=== PATIENT | female | born 1950 ===

== ENCOUNTER 2023-01-14 00:22 | Inpatient (IN) | payer OTHER, SELFPAY ==
[2023-01-14] VITALS (26 sets, daily range): BP systolic 149–200; BP diastolic 58–81; PULSE 90–125; RESP 20–32; TEMP 36.4–38.6; O2SAT 90–96; BMI 39.3; BMI 37.5
--- NOTE | 2023-01-14 00:33 | DI.RAD.S_ITS ---
PROCEDURE: XR FOOT RT 2V INDICATIONS: Great toe deep infection. TECHNIQUE: A total of 2 views of the foot were acquired. COMPARISON: None. FINDINGS: Bones: No fractures or dislocations. No suspicious bony lesions. Soft tissues: No tibiotalar joint effusion. Achilles tendon appears normal. A soft tissue ulceration can be seen medial to the great toe interphalangeal joint inferiorly. IMPRESSION: Soft tissue infection without clear plain film evidence of osteomyelitis at the great toe. Dictated by: Paulo Canela M.D. on 01/14/2023 at 1:27 Approved by: Paulo Canela M.D. on 01/14/2023 at 1:29
[2023-01-14 01:06] LABS: INR 4.5 (0.9-1.3); Prothrombin Time 52.5 SECONDS (10.1-12.7)
[2023-01-14 01:08] LABS: Hematocrit 33.9 % (36-46); Hemoglobin 11.5 g/dL (12.0-16.0); Mean Corpuscular HGB Conc 34.1 % (30-36); Mean Corpuscular Hemoglobin 29.9 PG (26-34); Mean Corpuscular Volume 87.7 fL (80-100); PTT Partial Thromboplastin Tim 37 SECONDS (26-36); Platelet Count 421 X10^3/uL (150-400); Red Blood Cell Count 3.86 X10^6/uL (4.0-5.2); Red Cell Distribution Width 14.2 % (11.6-14.8); White Blood Cell Count 23.1 X10^3/uL (4.5-11.0)
[2023-01-14 01:11] LABS: Add Manual Diff / Slide Review YES
[2023-01-14 01:20] LABS: Lactate (Lactic Acid) 0.8 mmol/L (0.7-2.1)
[2023-01-14 01:21] LABS: Alanine Aminotransferase 43 IU/L (<35); Albumin 3.6 g/dL (3.5-5.0); Albumin Globulin Ratio 0.9 (1.0-2.8); Alkaline Phosphatase 133 U/L (38-126); Aspartate Aminotransferase 49 IU/L (14-36); Blood Urea Nitrogen 17 mg/dL (7-17); Calcium 8.8 mg/dL (8.4-10.2); Carbon Dioxide 20 mmol/L (22-32); Chloride 102 mmol/L (98-107); Estimated Glomerular Filt Rate > 60 mL/min (>60); Globulin 3.9 g/dL (1.7-4.1); Glucose 139 mg/dL (80-110); HEMOLYSIS < 15 (0-50); Lipase 25 U/L (23-300); Potassium 3.6 mmol/L (3.4-5.1); Sodium 133 mmol/L (137-145); Total Protein 7.5 g/dL (6.3-8.2)
[2023-01-14 01:25] LABS: Neutrophils Absolute Manual 20559 /uL (3000-5900); Total Cells Counted 100
[2023-01-14 01:26] LABS: RBC Morphology Normal Morphology
[2023-01-14 01:32] LABS: Erythrocyte Sedimentation Rate 126 MM/HR (0-20)
--- NOTE | 2023-01-14 01:34 | ED.SKABFB ---
HPI - Skin/Abscess/Foreign Bdy General Chief complaint: Skin/Abscess/Foreign Body Stated complaint: Infected toe Time Seen by Provider: 01/14/23 00:24 Source: patient and EMS Mode of arrival: EMS Limitations: no limitations History of Present Illness HPI narrative: 72-year-old female smoker with peripheral neuropathy, anticoagulated due to prior pulmonary emboli, hypertension presents with a chief complaint of an infection on her right great toe that has been present for about 1 week. She has increased swelling in drainage and now states that the redness has stretch from the top of her foot up to her knee. She denies chest pain or shortness of breath. She is not dizzy nor weak or lightheaded. She denies any obvious injury. Related Data Home Medications Medication Instructions Recorded Confirmed AMITRIPTYLINE HYDROCHLORIDE 75 mg PO HS ##0 06/16/10 (AMITRIPTYLINE HCL) BACLOFEN (Lioresal) 40 mg PO Q DAY ##0 06/16/10 LISINOPRIL (Zestril / Prinivil) 40 mg PO Q DAY ##0 06/16/10 OMEPRAZOLE 20 mg PO Q DAY ##0 06/16/10 [LOVENOX] 150 mg PO BID ##0 12/26/10 [PHENYTOIN EX] ##0 12/26/10 metoprolol tartrate 50 mg tablet ##0 12/26/10 warfarin 5 mg tablet (Coumadin) 5.5 mg PO QDAY ##0 12/26/10 Allergies Allergy/AdvReac Type Severity Reaction Status Date / Time BLEACH Allergy Severe SEIZURES Uncoded 09/19/17 12:09 From AMMONIA Allergy Severe SEIZURES Uncoded 09/19/17 12:09 Codeine Allergy Unknown Uncoded 09/19/17 12:09 SULFA (sulfonamide) Allergy Unknown Uncoded 09/19/17 12:09 Morphine AdvReac Unknown Uncoded 09/19/17 12:09 Review of Systems Review of Systems Narrative: GENERAL: Denies chills, fatigue, malaise, fever, sweats. HEENT: Denies sinus pain, ear pain, sore throat, difficulty swallowing, dizziness. RESPIRATORY: Denies dyspnea, cough, wheezing, hemoptysis, sputum. CARDIOVASCULAR: Denies chest pain, palpitations, orthopnea, edema, GASTROINTESTINAL: Denies nausea, vomiting, abdominal pain, diarrhea, constipation, melena. : Denies dysuria, frequency, incontinence, hematuria, urinary retention. MUSCULOSKELETAL: See HPI SKIN: See HPI NEUROLOGIC: Denies weakness, headache, numbness, change in speech, confusion, seizures, incoordination. PSYCHIATRIC: No concerning psychosocial issues. 12 point review of systems is negative except for those stated above Patient History Social History Smoking Status: Current every day smoker Smoking Status: Current every day smoker tobacco type: cigarettes Substance Use Type: does not use Exam Narrative Exam Narrative: GENERAL: [72] year old patient appears stated age. Well-developed patient, in mild distress. HEAD: Atraumatic. Normocephalic. EYES: Pupils equal round and reactive. Extraocular motions intact. No scleral icterus. No injection or drainage. ENT: Nose without bleeding, purulent drainage. Throat without erythema, tonsillar hypertrophy or exudate. Airway patent. NECK: Trachea midline. Non tender CARDIOVASCULAR: Regular rate and rhythm without murmurs, gallops, or rubs. RESPIRATORY: Clear to auscultation. Breath sounds equal bilaterally. No wheezes, rales, or rhonchi. GASTROINTESTINAL: Abdomen soft, non-tender, nondistended. EXTREMITIES: Right great toe with significant swelling, fluctuance noted and discoloration, purulent, foul-smelling drainage from a break in the skin both on the dorsal surface and plantar surface, she is insensate to deep probe, culture sent to lab. Circumferential erythema around ankle calf and up to knee with what appears to be early lymphangitis BACK: Nontender without deformity or crepitance. No flank tenderness. NEURO: AOx3. SKIN: Otherwise, No rash or erythema of visible areas Initial Vital Signs Initial Vital Signs: Vital Signs Temperature 97.6 F 01/14/23 00:32 Pulse Rate 99 H 01/14/23 00:32 Respiratory Rate 20 01/14/23 00:32 Blood Pressure 186/76 H 01/14/23 00:32 Pulse Oximetry 94 01/14/23 00:32 Oxygen Delivery Method Nasal Cannula 01/14/23 00:32 Oxygen Flow Rate 3 01/14/23 00:32 Course Orders Ordered: ED Orders 01/14/23 00:33 XR foot RT 2V Stat 01/14/23 00:39 RT Consult Eval and Treat NOW 01/14/23 00:50 C-Reactive Protein Quant Stat Complete Blood Count AUTO DIFF Stat Comprehensive Metabolic Panel Stat Erythrocyte Sedimentation Rate Stat Lactate (Lactic Acid) Stat Lipase Stat PTT Partial Thromboplastin Man Stat Procalcitonin Stat Prothrombin Time INR Stat 01/14/23 01:04 EKG-12 Lead Stat 01/14/23 01:07 Blood Culture Stat 01/14/23 02:40 Urine Culture Stat Urine Microscopic Stat Ondansetron HCl (Ondansetron 4 Mg/2 Ml Inj) 4 mg IV NOW PRN PRN Reason: Nausea And Vomiting Ondansetron HCl (Ondansetron 4 Mg Odt) 4 mg SL NOW PRN PRN Reason: Nausea And Vomiting Discontinued Medications Sodium Chloride (Normal Saline 0.9%) 1,000 mls @ 1,000 mls/hr IV BOLUS ONE Stop: 01/14/23 01:38 Last Infusion: 01/14/23 02:53 Dose: 0 mls/hr Documented By: Admin: 01/14/23 01:47 Dose: 1,000 mls/hr Documented By: GILBERT Meropenem 500 mg/ Sodium (Chloride) 100 mls @ 200 mls/hr IV NOW ONE Stop: 01/14/23 01:18 Last Infusion: 01/14/23 03:39 Dose: 0 mls/hr Documented By: Admin: 01/14/23 02:51 Dose: 200 mls/hr Documented By: DALTON Metronidazole (Flagyl) 500 mg in 100 mls @ 100 mls/hr IV NOW ONE Stop: 01/14/23 02:16 Last Infusion: 01/14/23 02:53 Dose: 0 mls/hr Documented By: Admin: 01/14/23 01:46 Dose: 100 mls/hr Documented By: GILBERT Consultations Consultation #1: Discussed with on-call orthopedist, Dr. Garcia, he is happy to be involved in consultation, requests admission to hospitalist. Vital Signs Vital signs: Vital Signs - 8 hr 01/14/23 00:32 Temperature 97.6 F Pulse Rate 99 H Respiratory Rate 20 Blood Pressure 186/76 H Pulse Oximetry 94 Oxygen Delivery Method Nasal Cannula Oxygen Flow Rate 3 MDM - Skin/Abscess/Foreign Bdy Lab Data 01/14/23 00:50 01/14/23 00:50 Labs: Lab Results 01/14/23 01/14/23 01/14/23 Range/Units 00:50 00:50 00:50 WBC 23.1 H (4.5-11.0) X10^3/uL RBC 3.86 L (4.0-5.2) X10^6/uL Hgb 11.5 L (12.0-16.0) g/dL Hct 33.9 L (36-46) % MCV 87.7 (80-100) fL MCH 29.9 (26-34) PG MCHC 34.1 (30-36) % RDW 14.2 (11.6-14.8) % Plt Count 421 H (150-400) X10^3/uL Neut % (Auto) Not Reportable Lymph % (Auto) Not Reportable [place] % (Auto) Not Reportable Eos % (Auto) Not Reportable Baso % (Auto) Not Reportable Lymph # (Auto) Not Reportable [place] # (Auto) Not Reportable Baso # (Auto) Not Reportable Total Counted 100 Seg Neutrophils % 86.0 H (38-70) % Band Neutrophils % 3.0 (3-7) % Lymphocytes % (Manual) 6.0 L (25-45) % Monocytes % (Manual) 5.0 (2-11) % Neutrophils # (Manual) 56489 H (2482-0540) /uL RBC Morphology Normal morphology ESR (0-20) MM/HR PT 52.5 H (10.1-12.7) SECONDS INR 4.5 H (0.9-1.3) APTT 37 H (26-36) SECONDS Sodium 133 L (137-145) mmol/L Potassium 3.6 (3.4-5.1) mmol/L Chloride 102 (98-107) mmol/L Carbon Dioxide 20 L (22-32) mmol/L BUN 17 (7-17) mg/dL Creatinine 0.81 (0.52-1.04) mg/dL Estimated GFR > 60 (>60) mL/min BUN/Creatinine Ratio 21.0 (6-22) Glucose 139 H (80-110) mg/dL Lactate (0.7-2.1) mmol/L Calcium 8.8 (8.4-10.2) mg/dL Total Bilirubin 1.0 (0.2-1.3) mg/dL AST 49 H (14-36) IU/L ALT 43 H (<35) IU/L Alkaline Phosphatase 133 H (38-126) U/L C-Reactive Protein (<1.0) mg/dL Total Protein 7.5 (6.3-8.2) g/dL Albumin 3.6 (3.5-5.0) g/dL Globulin 3.9 (1.7-4.1) g/dL Albumin/Globulin Ratio 0.9 L (1.0-2.8) Lipase 25 (23-300) U/L Procalcitonin 0.97 H (<0.5) ng/mL Urine RBC (0-5/HPF) Urine WBC (0-5/HPF) Ur Squamous Epith Cells (0-5/HPF) Urine Bacteria (None) Ur Culture Indicated? 01/14/23 01/14/23 01/14/23 Range/Units 00:50 00:50 00:50 WBC (4.5-11.0) X10^3/uL RBC (4.0-5.2) X10^6/uL Hgb (12.0-16.0) g/dL Hct (36-46) % MCV (80-100) fL MCH (26-34) PG MCHC (30-36) % RDW (11.6-14.8) % Plt Count (150-400) X10^3/uL Neut % (Auto) Lymph % (Auto) [place] % (Auto) Eos % (Auto) Baso % (Auto) Lymph # (Auto) [place] # (Auto) Baso # (Auto) Total Counted Seg Neutrophils % (38-70) % Band Neutrophils % (3-7) % Lymphocytes % (Manual) (25-45) % Monocytes % (Manual) (2-11) % Neutrophils # (Manual) (8740-7057) /uL RBC Morphology ESR 126 H (0-20) MM/HR PT (10.1-12.7) SECONDS INR (0.9-1.3) APTT (26-36) SECONDS Sodium (137-145) mmol/L Potassium (3.4-5.1) mmol/L Chloride (98-107) mmol/L Carbon Dioxide (22-32) mmol/L BUN (7-17) mg/dL Creatinine (0.52-1.04) mg/dL Estimated GFR (>60) mL/min BUN/Creatinine Ratio (6-22) Glucose (80-110) mg/dL Lactate 0.8 (0.7-2.1) mmol/L Calcium (8.4-10.2) mg/dL Total Bilirubin (0.2-1.3) mg/dL AST (14-36) IU/L ALT (<35) IU/L Alkaline Phosphatase (38-126) U/L C-Reactive Protein 41.1 H (<1.0) mg/dL Total Protein (6.3-8.2) g/dL Albumin (3.5-5.0) g/dL Globulin (1.7-4.1) g/dL Albumin/Globulin Ratio (1.0-2.8) Lipase (23-300) U/L Procalcitonin (<0.5) ng/mL Urine RBC (0-5/HPF) Urine WBC (0-5/HPF) Ur Squamous Epith Cells (0-5/HPF) Urine Bacteria (None) Ur Culture Indicated? 01/14/23 Range/Units 02:40 WBC (4.5-11.0) X10^3/uL RBC (4.0-5.2) X10^6/uL Hgb (12.0-16.0) g/dL Hct (36-46) % MCV (80-100) fL MCH (26-34) PG MCHC (30-36) % RDW (11.6-14.8) % Plt Count (150-400) X10^3/uL Neut % (Auto) Lymph % (Auto) [place] % (Auto) Eos % (Auto) Baso % (Auto) Lymph # (Auto) [place] # (Auto) Baso # (Auto) Total Counted Seg Neutrophils % (38-70) % Band Neutrophils % (3-7) % Lymphocytes % (Manual) (25-45) % Monocytes % (Manual) (2-11) % Neutrophils # (Manual) (5967-1704) /uL RBC Morphology ESR (0-20) MM/HR PT (10.1-12.7) SECONDS INR (0.9-1.3) APTT (26-36) SECONDS Sodium (137-145) mmol/L Potassium (3.4-5.1) mmol/L Chloride (98-107) mmol/L Carbon Dioxide (22-32) mmol/L BUN (7-17) mg/dL Creatinine (0.52-1.04) mg/dL Estimated GFR (>60) mL/min BUN/Creatinine Ratio (6-22) Glucose (80-110) mg/dL Lactate (0.7-2.1) mmol/L Calcium (8.4-10.2) mg/dL Total Bilirubin (0.2-1.3) mg/dL AST (14-36) IU/L ALT (<35) IU/L Alkaline Phosphatase (38-126) U/L C-Reactive Protein (<1.0) mg/dL Total Protein (6.3-8.2) g/dL Albumin (3.5-5.0) g/dL Globulin (1.7-4.1) g/dL Albumin/Globulin Ratio (1.0-2.8) Lipase (23-300) U/L Procalcitonin (<0.5) ng/mL Urine RBC 5-10/hpf H (0-5/HPF) Urine WBC 10-30/hpf H (0-5/HPF) Ur Squamous Epith Cells 5-10 /hpf H (0-5/HPF) Urine Bacteria Many (>30) H (None) Ur Culture Indicated? Specimen cultured Urine Dip Bedside Urine Glucose Negative Bedside Urine Bilirubin + 1 Bedside Urine Ketone ++ 40 Urine Specific [place] 1.025 Bedside Urine Occult Blood ++ Bedside Urine pH 6 Bedside Urine Protein ++ 100 Bedside Urine Urobilinogen - Negative Bedside Urine Nitrite - Negative Bedside Urine Leukocytes +/- 15 Esterase MDM Narrative Medical decision making narrative: 72-year-old female with worsening right great toe swelling and redness over the week. There is now drainage of foul-smelling material. Patient reports very little pain but generally feels unwell. She now has redness extending up her right leg to just below the knee. Patient has no reported history of diabetes but does have neuropathy. Wound culture obtained. Elevation in white blood cells with left shift noted, inflammatory markers also increase not surprisingly. X-ray shows no obvious bony involvement. Patient requires hospitalization for IV antibiotics, could potentially require surgical debridement. Patient understands and agrees with diagnosis and plan. I have spoken with the hospitalist, Dr. Vela, who is happy to accept patient on his service Discharge Plan Departure Patient Disposition: Admitted As Inpatient Clinical Impression: Abscess of great toe, right, Cellulitis of right lower limb Admit Date/Time: 01/14/23 03:50
[2023-01-14 01:38] LABS: Procalcitonin 0.97 ng/mL (<0.5)
[2023-01-14 01:46] LABS: C-Reactive Protein Quant 41.1 mg/dL (<1.0)
[2023-01-14] MEDS: metroNIDAZOLE 500 MG/100 ML PIGGYBACK 100 MG IV ×3 (01:46→23:00)
[2023-01-14] MEDS: SODIUM CHLORIDE 0.9% 1,000 ML 1000 ML IV (01:47)
[2023-01-14 02:50] LABS: Bacteria Urine Many (>30); RBC Urine 5-10/HPF (0-5/HPF); Squamous Epithelial Cell Urine 5-10 /HPF (0-5/HPF); WBC Urine 10-30/HPF (0-5/HPF)
[2023-01-14] MEDS: MEROPENEM 500 MG in SODIUM CHLORIDE 0.9% 100 ML 200 MG IV (02:51)
[2023-01-14 02:52] LABS: Culture Indicated Urine Specimen Cultured
--- NOTE | 2023-01-14 05:51 | P.HP_ITS ---
History of Present Illness History of Present Illness Chief complaint: Infected toe Narrative: 72 y/o with a history of peripheral neuropathy, presented to ED with purulent Rt great toe wound and large area of cellulitis extending to the knee. Wound was noted a week ago. On arrival to ED started on broad abx coverage. FORMERLY [facility], [facility] Medical History Smoker Social History Smoking Status: Current every day smoker Meds Home Medications and Allergies Home Medications Medication Instructions Recorded Confirmed Type AMITRIPTYLINE HYDROCHLORIDE 75 mg PO HS ##0 06/16/10 History (AMITRIPTYLINE HCL) BACLOFEN (Lioresal) 40 mg PO Q DAY ##0 06/16/10 01/14/23 History LISINOPRIL (Zestril / Prinivil) 40 mg PO Q DAY ##0 06/16/10 01/14/23 History OMEPRAZOLE 20 mg PO Q DAY ##0 06/16/10 01/14/23 History [LOVENOX] 150 mg PO BID ##0 12/26/10 History [PHENYTOIN EX] 2 cap PO BID ##0 12/26/10 01/14/23 History metoprolol tartrate 50 mg tablet 100 mg PO BID ##0 12/26/10 01/14/23 History warfarin 5 mg tablet (Coumadin) 5.5 mg PO QDAY ##0 12/26/10 01/14/23 History clonidine HCl 0.2 mg tablet 0.2 mg PO BID 01/14/23 01/14/23 History sertraline 100 mg tablet 100 mg PO DAILY 01/14/23 01/14/23 History warfarin 1 mg tablet 1 mg PO DAILY 01/14/23 01/14/23 History Allergies Allergy/AdvReac Type Severity Reaction Status Date / Time BLEACH Allergy Severe SEIZURES Uncoded 09/19/17 12:09 From AMMONIA Allergy Severe SEIZURES Uncoded 09/19/17 12:09 Codeine Allergy Unknown Uncoded 09/19/17 12:09 SULFA (sulfonamide) Allergy Unknown Uncoded 09/19/17 12:09 Morphine AdvReac Unknown Uncoded 09/19/17 12:09 Review of Systems Constitutional Comments: w/o fever or chills Cardiovascular Comments: w/o chest pain or pressure Respiratory Comments: short of breath with activity Gastrointestinal Comments: w/o complaints Genitourinary Comments: w/o dysuria Musculoskeletal Comments: RLE pain, swelling, redness Neurologic Comments: chronic neuropathy with decreased sensory from toes and episodic neuropathic pain in legs Exam Vital Signs (past 8 hours): - 01/14/23 00:32 01/14/23 00:26 01/14/23 00:26 Temperature 97.6 F Pulse Rate 99 H 100 H Respiratory Rate 20 Blood Pressure 186/76 H 186/76 H Pulse Oximetry 94 93 Oxygen Delivery Method Nasal Cannula Oxygen Flow Rate 3 01/14/23 00:30 01/14/23 00:30 01/14/23 01:00 Temperature Pulse Rate 99 H Respiratory Rate Blood Pressure 174/74 H 170/73 H Pulse Oximetry 93 Oxygen Delivery Method Oxygen Flow Rate 01/14/23 01:00 01/14/23 01:30 01/14/23 01:30 Temperature Pulse Rate 100 H 95 H Respiratory Rate Blood Pressure 172/73 H Pulse Oximetry 90 L 92 Oxygen Delivery Method Oxygen Flow Rate 01/14/23 02:00 01/14/23 02:00 01/14/23 03:06 Temperature Pulse Rate 97 H 125 H Respiratory Rate Blood Pressure 175/74 H Pulse Oximetry 92 90 L Oxygen Delivery Method Oxygen Flow Rate 01/14/23 03:30 01/14/23 03:31 01/14/23 03:31 Temperature Pulse Rate 120 H 121 H Respiratory Rate Blood Pressure 185/81 H Pulse Oximetry 91 91 Oxygen Delivery Method Oxygen Flow Rate 01/14/23 04:00 01/14/23 05:18 Temperature 98.1 F Pulse Rate 118 H 124 H Respiratory Rate 20 32 H Blood Pressure 195/79 H 200/79 H Pulse Oximetry 93 96 Oxygen Delivery Method Nasal Cannula Oxygen Flow Rate 2 Oxygen Delivery Method Nasal Cannula Oxygen Flow Rate 2 Const Other: sitting on bed in no distress HENMT Other: normocephalic Neck Other: no JVD Cardio Other: tachycardic, VIRGIL at LSB GI Other: not distended Skin Other: Rt great toe wounds, erythematous and swollen RLE Psych Other: appropriate mood and affect Objective Labs 01/14/23 00:50 01/14/23 00:50 Labs: Laboratory Results - last 24 hr 01/14/23 01/14/23 01/14/23 00:50 00:50 00:50 WBC 23.1 H RBC 3.86 L Hgb 11.5 L Hct 33.9 L MCV 87.7 MCH 29.9 MCHC 34.1 RDW 14.2 Plt Count 421 H Neut % (Auto) Not Reportable Lymph % (Auto) Not Reportable [place] % (Auto) Not Reportable Eos % (Auto) Not Reportable Baso % (Auto) Not Reportable Lymph # (Auto) Not Reportable [place] # (Auto) Not Reportable Baso # (Auto) Not Reportable Total Counted 100 Seg Neutrophils % 86.0 H Band Neutrophils % 3.0 Lymphocytes % (Manual) 6.0 L Monocytes % (Manual) 5.0 Neutrophils # (Manual) 98154 H RBC Morphology Normal morphology ESR PT 52.5 H INR 4.5 H APTT 37 H Sodium 133 L Potassium 3.6 Chloride 102 Carbon Dioxide 20 L BUN 17 Creatinine 0.81 Estimated GFR > 60 BUN/Creatinine Ratio 21.0 Glucose 139 H Lactate Calcium 8.8 Total Bilirubin 1.0 AST 49 H ALT 43 H Alkaline Phosphatase 133 H C-Reactive Protein Total Protein 7.5 Albumin 3.6 Globulin 3.9 Albumin/Globulin Ratio 0.9 L Lipase 25 Procalcitonin 0.97 H Urine RBC Urine WBC Ur Squamous Epith Cells Urine Bacteria Ur Culture Indicated? 01/14/23 01/14/23 01/14/23 00:50 00:50 00:50 WBC RBC Hgb Hct MCV MCH MCHC RDW Plt Count Neut % (Auto) Lymph % (Auto) [place] % (Auto) Eos % (Auto) Baso % (Auto) Lymph # (Auto) [place] # (Auto) Baso # (Auto) Total Counted Seg Neutrophils % Band Neutrophils % Lymphocytes % (Manual) Monocytes % (Manual) Neutrophils # (Manual) RBC Morphology ESR 126 H PT INR APTT Sodium Potassium Chloride Carbon Dioxide BUN Creatinine Estimated GFR BUN/Creatinine Ratio Glucose Lactate 0.8 Calcium Total Bilirubin AST ALT Alkaline Phosphatase C-Reactive Protein 41.1 H Total Protein Albumin Globulin Albumin/Globulin Ratio Lipase Procalcitonin Urine RBC Urine WBC Ur Squamous Epith Cells Urine Bacteria Ur Culture Indicated? 01/14/23 02:40 WBC RBC Hgb Hct MCV MCH MCHC RDW Plt Count Neut % (Auto) Lymph % (Auto) [place] % (Auto) Eos % (Auto) Baso % (Auto) Lymph # (Auto) [place] # (Auto) Baso # (Auto) Total Counted Seg Neutrophils % Band Neutrophils % Lymphocytes % (Manual) Monocytes % (Manual) Neutrophils # (Manual) RBC Morphology ESR PT INR APTT Sodium Potassium Chloride Carbon Dioxide BUN Creatinine Estimated GFR BUN/Creatinine Ratio Glucose Lactate Calcium Total Bilirubin AST ALT Alkaline Phosphatase C-Reactive Protein Total Protein Albumin Globulin Albumin/Globulin Ratio Lipase Procalcitonin Urine RBC 5-10/hpf H Urine WBC 10-30/hpf H Ur Squamous Epith Cells 5-10 /hpf H Urine Bacteria Many (>30) H Ur Culture Indicated? Specimen cultured Assessment & Plan Assessment and plan (1) Abscess of great toe, right: Status: Acute Plan: - orthopedist to assess for debridement - INR supratherapeutic on admission, taken off warfarin - INR f/u - Meropenem, Flagyl started in ED - cultures pending (2) Cellulitis of right lower limb: Status: Acute Plan: see above (3) HTN (hypertension): Status: Acute Plan: Clonidine, metoprolol, Lisinopril - grossly uncontrolled on admission (4) Pulmonary embolism: Status: Acute Plan: INR 4.5, taken off warfarin O2 prn (5) Peripheral neuropathy: Status: Acute Plan: - chronic (6) GERD (gastroesophageal reflux disease): Status: Acute Plan: PPI (7) Depression: Status: Acute Plan: Zoloft (8) Smoker: Status: Acute Plan: nicotine replacement prn, albuterol prn Assessment & Plan narrative: - orthopedist to assess for debridement - INR supratherapeutic on admission, taken off coumadin
--- NOTE | 2023-01-14 07:13 | PM.PN.1 ---
Subjective Subjective Interval history: She is seen today to follow-up her vascular disease, left foot ulcer, right foot infection, right leg cellulitis, peripheral neuropathy and pulmonary embolus. Her INR neo to 6.0 this morning so vitamin K will be given. She is discussed with Dr. Garcia from Orthopedics. She appears to have a severe peripheral vascular condition leading to these infections so will likely need to be referred to a hospital where angiogram runoff CT scan can be done to establish what level of treatment she needs. I suspect she will need bilateral BKA? Exam Vital Signs (past 8 hours): - 01/14/23 00:32 01/14/23 00:26 01/14/23 00:26 Temperature 97.6 F Pulse Rate 99 H 100 H Respiratory Rate 20 Blood Pressure 186/76 H 186/76 H Pulse Oximetry 94 93 Oxygen Delivery Method Nasal Cannula Oxygen Flow Rate 3 01/14/23 00:30 01/14/23 00:30 01/14/23 01:00 Temperature Pulse Rate 99 H Respiratory Rate Blood Pressure 174/74 H 170/73 H Pulse Oximetry 93 Oxygen Delivery Method Oxygen Flow Rate 01/14/23 01:00 01/14/23 01:30 01/14/23 01:30 Temperature Pulse Rate 100 H 95 H Respiratory Rate Blood Pressure 172/73 H Pulse Oximetry 90 L 92 Oxygen Delivery Method Oxygen Flow Rate 01/14/23 02:00 01/14/23 02:00 01/14/23 03:06 Temperature Pulse Rate 97 H 125 H Respiratory Rate Blood Pressure 175/74 H Pulse Oximetry 92 90 L Oxygen Delivery Method Oxygen Flow Rate 01/14/23 03:30 01/14/23 03:31 01/14/23 03:31 Temperature Pulse Rate 120 H 121 H Respiratory Rate Blood Pressure 185/81 H Pulse Oximetry 91 91 Oxygen Delivery Method Oxygen Flow Rate 01/14/23 04:00 01/14/23 05:18 01/14/23 04:21 Temperature 98.1 F Pulse Rate 118 H 124 H Respiratory Rate 20 32 H Blood Pressure 195/79 H 200/79 H Pulse Oximetry 93 96 Oxygen Delivery Method Nasal Cannula Nasal Cannula Oxygen Flow Rate 2 Oxygen Delivery Method Nasal Cannula Oxygen Flow Rate 2 Narrative Exam Narrative: She is alert and oriented x3. She is weakned as would be expected from this severe infection. Heart is regular rate and rhythm without murmur Lungs are clear to auscultation bilaterally Large left 1st metatarsal ulceration present. Large swollen right large toe. 2+ pitting edema of the right lower leg. No edema of left lower leg. Cellulitic pink discoloration extending up to just above the knee still within demarcations drawn in the ED on admission. Objective Labs 01/14/23 00:50 01/14/23 00:50 Labs: Laboratory Results - last 24 hr 01/14/23 01/14/23 01/14/23 00:50 00:50 00:50 WBC 23.1 H RBC 3.86 L Hgb 11.5 L Hct 33.9 L MCV 87.7 MCH 29.9 MCHC 34.1 RDW 14.2 Plt Count 421 H Neut % (Auto) Not Reportable Lymph % (Auto) Not Reportable [place] % (Auto) Not Reportable Eos % (Auto) Not Reportable Baso % (Auto) Not Reportable Lymph # (Auto) Not Reportable [place] # (Auto) Not Reportable Baso # (Auto) Not Reportable Total Counted 100 Seg Neutrophils % 86.0 H Band Neutrophils % 3.0 Lymphocytes % (Manual) 6.0 L Monocytes % (Manual) 5.0 Neutrophils # (Manual) 43652 H RBC Morphology Normal morphology ESR PT 52.5 H INR 4.5 H APTT 37 H Sodium 133 L Potassium 3.6 Chloride 102 Carbon Dioxide 20 L BUN 17 Creatinine 0.81 Estimated GFR > 60 BUN/Creatinine Ratio 21.0 Glucose 139 H Lactate Calcium 8.8 Total Bilirubin 1.0 AST 49 H ALT 43 H Alkaline Phosphatase 133 H C-Reactive Protein Total Protein 7.5 Albumin 3.6 Globulin 3.9 Albumin/Globulin Ratio 0.9 L Lipase 25 Procalcitonin 0.97 H Urine RBC Urine WBC Ur Squamous Epith Cells Urine Bacteria Ur Culture Indicated? 01/14/23 01/14/23 01/14/23 00:50 00:50 00:50 WBC RBC Hgb Hct MCV MCH MCHC RDW Plt Count Neut % (Auto) Lymph % (Auto) [place] % (Auto) Eos % (Auto) Baso % (Auto) Lymph # (Auto) [place] # (Auto) Baso # (Auto) Total Counted Seg Neutrophils % Band Neutrophils % Lymphocytes % (Manual) Monocytes % (Manual) Neutrophils # (Manual) RBC Morphology ESR 126 H PT INR APTT Sodium Potassium Chloride Carbon Dioxide BUN Creatinine Estimated GFR BUN/Creatinine Ratio Glucose Lactate 0.8 Calcium Total Bilirubin AST ALT Alkaline Phosphatase C-Reactive Protein 41.1 H Total Protein Albumin Globulin Albumin/Globulin Ratio Lipase Procalcitonin Urine RBC Urine WBC Ur Squamous Epith Cells Urine Bacteria Ur Culture Indicated? 01/14/23 02:40 WBC RBC Hgb Hct MCV MCH MCHC RDW Plt Count Neut % (Auto) Lymph % (Auto) [place] % (Auto) Eos % (Auto) Baso % (Auto) Lymph # (Auto) [place] # (Auto) Baso # (Auto) Total Counted Seg Neutrophils % Band Neutrophils % Lymphocytes % (Manual) Monocytes % (Manual) Neutrophils # (Manual) RBC Morphology ESR PT INR APTT Sodium Potassium Chloride Carbon Dioxide BUN Creatinine Estimated GFR BUN/Creatinine Ratio Glucose Lactate Calcium Total Bilirubin AST ALT Alkaline Phosphatase C-Reactive Protein Total Protein Albumin Globulin Albumin/Globulin Ratio Lipase Procalcitonin Urine RBC 5-10/hpf H Urine WBC 10-30/hpf H Ur Squamous Epith Cells 5-10 /hpf H Urine Bacteria Many (>30) H Ur Culture Indicated? Specimen cultured [facility] Medical History Smoker Social History household members: none Smoking Status: Current every day smoker alcohol intake: never Assessment & Plan Assessment & Plan narrative: (1) Abscess of great toe, right: - See by Dr. Garcia. Dr. Singletary will follow - likely to need transfer to hospital with vascular surgery - INR supratherapeutic on admission, taken off warfarin - INR neo to 6.0 on 01/14 so Vitamin K 5 mg IV was given - Meropenem for BC positive for G+ cocci - Discuss adding Vancomycin with pharmacy. (2) Cellulitis of right lower limb: Meropenem BC are both G+ cocci Toe ulcer drainage cultured 01/15/23 Consider Vancomycin (3) HTN (hypertension): Clonidine, metoprolol, Lisinopril - grossly uncontrolled on admission (4) Pulmonary embolism: -Pending vascular procedure, toe or BKA amputation holding Coumadin -Reverse elevated INR with Vitamin K -likely needs IVC filter. (5) Peripheral neuropathy: ? (6) GERD (gastroesophageal reflux disease): PPI (7) Depression: Zoloft (8) Smoker: nicotine replacement prn, albuterol prn
[2023-01-14] MEDS: PANTOPRAZOLE DR 20 MG TABLET PO (07:43)
[2023-01-14] MEDS: ACETAMINOPHEN 325 MG TABLET 650 MG PO ×2 (07:43→16:34)
[2023-01-14] MEDS: lisinopriL 20 MG TABLET 40 MG PO (08:13)
[2023-01-14] MEDS: SERTRALINE 50 MG TABLET 100 MG PO (08:14)
[2023-01-14] MEDS: METOPROLOL IR 50 MG TABLET 100 MG PO ×2 (08:14→20:42)
[2023-01-14] MEDS: cloNIDine 0.1 MG TABLET 0.2 MG PO ×2 (08:14→20:41)
[2023-01-14 08:37] LABS: Prothrombin Time 69.7 SECONDS (10.1-12.7)
--- NOTE | 2023-01-14 10:49 | P.CONS_ITS ---
History of Present Illness Consult details Date Patient Seen: 01/14/23 Time Patient Seen: 10:30 Chief complaint: Infected toe Narrative: 72-year-old female who was admitted early this morning due to a roughly 1 week history of swelling and drainage involving the right great toe. Patient states over the last few days she is developed redness swelling involving initially the foot and then the lower leg. The drainage was progressively getting worse which resulted her coming into the emergency room where she was admitted and started on IV antibiotics. Patient denies previous history of infections to the foot. Does have a history of neuropathy. Is not followed by anyone for her feet. But does give a history of issues with both feet which has been going on for quite some time due to her neuropathy. But denies any significant history of any active infections in the past. Meds Home Medications and Allergies Home Medications Medication Instructions Recorded Confirmed Type AMITRIPTYLINE HYDROCHLORIDE 75 mg PO HS ##0 06/16/10 History (AMITRIPTYLINE HCL) BACLOFEN (Lioresal) 40 mg PO Q DAY ##0 06/16/10 01/14/23 History LISINOPRIL (Zestril / Prinivil) 40 mg PO Q DAY ##0 06/16/10 01/14/23 History OMEPRAZOLE 20 mg PO Q DAY ##0 06/16/10 01/14/23 History [LOVENOX] 150 mg PO BID ##0 12/26/10 History [PHENYTOIN EX] 2 cap PO BID ##0 12/26/10 01/14/23 History metoprolol tartrate 50 mg tablet 100 mg PO BID ##0 12/26/10 01/14/23 History warfarin 5 mg tablet (Coumadin) 5.5 mg PO QDAY ##0 12/26/10 01/14/23 History clonidine HCl 0.2 mg tablet 0.2 mg PO BID 01/14/23 01/14/23 History sertraline 100 mg tablet 100 mg PO DAILY 01/14/23 01/14/23 History warfarin 1 mg tablet 1 mg PO DAILY 01/14/23 01/14/23 History Allergies Allergy/AdvReac Type Severity Reaction Status Date / Time BLEACH Allergy Severe SEIZURES Uncoded 09/19/17 12:09 From AMMONIA Allergy Severe SEIZURES Uncoded 09/19/17 12:09 Codeine Allergy Unknown Uncoded 09/19/17 12:09 SULFA (sulfonamide) Allergy Unknown Uncoded 09/19/17 12:09 Morphine AdvReac Unknown Uncoded 09/19/17 12:09 Exam Vital Signs (past 8 hours): - 01/14/23 03:06 01/14/23 03:30 01/14/23 03:31 Temperature Pulse Rate 125 H 120 H Respiratory Rate Blood Pressure 185/81 H Pulse Oximetry 90 L 91 Oxygen Delivery Method Oxygen Flow Rate 01/14/23 03:31 01/14/23 04:00 01/14/23 05:18 Temperature 98.1 F Pulse Rate 121 H 118 H 124 H Respiratory Rate 20 32 H Blood Pressure 195/79 H 200/79 H Pulse Oximetry 91 93 96 Oxygen Delivery Method Nasal Cannula Oxygen Flow Rate 2 01/14/23 04:21 01/14/23 07:17 01/14/23 07:40 Temperature 101.4 F H Pulse Rate 124 H Respiratory Rate 32 H Blood Pressure 200/79 H Pulse Oximetry 96 93 Oxygen Delivery Method Nasal Cannula Nasal Cannula Oxygen Flow Rate 2 2 01/14/23 07:40 01/14/23 08:13 01/14/23 08:14 Temperature 98.3 F Pulse Rate 116 H 125 H 125 H Respiratory Rate 22 Blood Pressure 179/58 H 179/58 H 179/58 H Pulse Oximetry 93 Oxygen Delivery Method Oxygen Flow Rate 2 01/14/23 09:03 01/14/23 07:30 Temperature Pulse Rate Respiratory Rate 22 Blood Pressure Pulse Oximetry Oxygen Delivery Method Room Air Oxygen Flow Rate Oxygen Delivery Method Nasal Cannula Oxygen Flow Rate 2 Narrative Exam Narrative: On examination today, elderly female who is alert and oriented x3 and does not seem to be in any apparent distress. Right leg shows significant cellulitis involving the foot as well as the lower leg but not progressing to the patella. Infectious process mainly seems to be involving the great toe. No drainage on today's evaluation but some ulceration to the dorsal aspect of the great toe. Patient states this is where the majority of the drainage was coming from. Signs of vascular compromise involving both feet. Left foot has a chronic ulcer to the plantar aspect of the foot over the great toe. Patient is unsure how long that has been there. But both feet show signs of vascular compromise as well as signs of decrease sensation and signs of neuropathy to both feet. No sign of any active infectious process involving the left foot or leg. Objective Labs 01/14/23 00:50 01/14/23 00:50 Labs: Laboratory Results - last 24 hr 01/14/23 01/14/23 01/14/23 00:50 00:50 00:50 WBC 23.1 H RBC 3.86 L Hgb 11.5 L Hct 33.9 L MCV 87.7 MCH 29.9 MCHC 34.1 RDW 14.2 Plt Count 421 H Neut % (Auto) Not Reportable Lymph % (Auto) Not Reportable [place] % (Auto) Not Reportable Eos % (Auto) Not Reportable Baso % (Auto) Not Reportable Lymph # (Auto) Not Reportable [place] # (Auto) Not Reportable Baso # (Auto) Not Reportable Total Counted 100 Seg Neutrophils % 86.0 H Band Neutrophils % 3.0 Lymphocytes % (Manual) 6.0 L Monocytes % (Manual) 5.0 Neutrophils # (Manual) 24871 H RBC Morphology Normal morphology ESR PT 52.5 H INR 4.5 H APTT 37 H Sodium 133 L Potassium 3.6 Chloride 102 Carbon Dioxide 20 L BUN 17 Creatinine 0.81 Estimated GFR > 60 BUN/Creatinine Ratio 21.0 Glucose 139 H Lactate Calcium 8.8 Total Bilirubin 1.0 AST 49 H ALT 43 H Alkaline Phosphatase 133 H C-Reactive Protein Total Protein 7.5 Albumin 3.6 Globulin 3.9 Albumin/Globulin Ratio 0.9 L Lipase 25 Procalcitonin 0.97 H Urine RBC Urine WBC Ur Squamous Epith Cells Urine Bacteria Ur Culture Indicated? 01/14/23 01/14/23 01/14/23 00:50 00:50 00:50 WBC RBC Hgb Hct MCV MCH MCHC RDW Plt Count Neut % (Auto) Lymph % (Auto) [place] % (Auto) Eos % (Auto) Baso % (Auto) Lymph # (Auto) [place] # (Auto) Baso # (Auto) Total Counted Seg Neutrophils % Band Neutrophils % Lymphocytes % (Manual) Monocytes % (Manual) Neutrophils # (Manual) RBC Morphology ESR 126 H PT INR APTT Sodium Potassium Chloride Carbon Dioxide BUN Creatinine Estimated GFR BUN/Creatinine Ratio Glucose Lactate 0.8 Calcium Total Bilirubin AST ALT Alkaline Phosphatase C-Reactive Protein 41.1 H Total Protein Albumin Globulin Albumin/Globulin Ratio Lipase Procalcitonin Urine RBC Urine WBC Ur Squamous Epith Cells Urine Bacteria Ur Culture Indicated? 01/14/23 01/14/23 02:40 08:15 WBC RBC Hgb Hct MCV MCH MCHC RDW Plt Count Neut % (Auto) Lymph % (Auto) [place] % (Auto) Eos % (Auto) Baso % (Auto) Lymph # (Auto) [place] # (Auto) Baso # (Auto) Total Counted Seg Neutrophils % Band Neutrophils % Lymphocytes % (Manual) Monocytes % (Manual) Neutrophils # (Manual) RBC Morphology ESR PT 69.7 H D INR 6.0 H* APTT Sodium Potassium Chloride Carbon Dioxide BUN Creatinine Estimated GFR BUN/Creatinine Ratio Glucose Lactate Calcium Total Bilirubin AST ALT Alkaline Phosphatase C-Reactive Protein Total Protein Albumin Globulin Albumin/Globulin Ratio Lipase Procalcitonin Urine RBC 5-10/hpf H Urine WBC 10-30/hpf H Ur Squamous Epith Cells 5-10 /hpf H Urine Bacteria Many (>30) H Ur Culture Indicated? Specimen cultured PFSH Medical History Smoker Social History household members: none Tobacco & Substance Use Smoking Status: Current every day smoker alcohol intake: never Assessment & Plan Assessment & Plan narrative: Patient with cellulitis and signs of infection involving the right great toe. Patient had an MRI that did not show any signs of any osteomyelitis. Main concern at this point is the vascular compromise to both feet. Would recommend that patient get vascular studies to determine perfusion to both feet as well as toes. Patient will eventually require surgery to the right great toe. Whether that ends up being just an I and D or an amputation will depend a lot on the findings on her vascular studies.
[2023-01-14] MEDS: PHYTONADIONE (VIT K1) 5 MG in SODIUM CHLORIDE 0.9% 100 ML 201 MG IV (11:09)
[2023-01-14] MEDS: MEROPENEM 1 GM in SODIUM CHLORIDE 0.9% 100 ML IV ×2 (12:45→20:41)
[2023-01-14 13:46] LABS: Enterococcus faecalis Not Detected (Not Detect); Enterococcus faecium Not Detected (Not Detect)
[2023-01-14 13:47] LABS: Acinetobacter calcoa-baumannii Not Detected (Not Detect); Bacteroides fragilis Not Detected (Not Detect); Candida albicans Not Detected (Not Detect); Candida auris Not Detected (Not Detect); Candida glabrata Not Detected (Not Detect); Candida krusei Not Detected (Not Detect); Candida parapsilosis Not Detected (Not Detect); Candida tropicalis Not Detected (Not Detect); Cryptococcus neoformans/gatti Not Detected (Not Detect); Enterobacter cloacae complex Not Detected (Not Detect); Enterobacterales Not Detected (Not Detect); Haemophilus influenzae Not Detected (Not Detect); Klebsiella aerogenes Not Detected (Not Detect); Listeria monocytogenes Not Detected (Not Detect); Neisseria meningitidis Not Detected (Not Detect); Proteus species Not Detected (Not Detect); Pseudomonas aeruginosa Not Detected (Not Detect); Salmonella species Not Detected (Not Detect); Serratia marcescens Not Detected (Not Detect); Staphylococcus epidermidis Not Detected (Not Detect); Staphylococcus lugdunensis Not Detected (Not Detect); Staphylococcus species Not Detected (Not Detect); Stenotrophomonas maltophilia Not Detected (Not Detect); Streptococcus agalactiae (Gr B Not Detected (Not Detect); Streptococcus pneumonia Not Detected (Not Detect); Streptococcus pyogenes (Gr A) Not Detected (Not Detect); Streptococcus species DETECTED (Not Detect)
--- NOTE | 2023-01-14 14:59 | CM.DANOTE ---
DCP/Assessment: Met briefly with this 72yr old female admitted to [facility] today with infected right toe. No PCP listed. Primary payor is [employer]. Provider reports in AM rounds that patient most likely will need amputation of toe or below the knee amputation. Surgery consulted and provider unsure if they will want to attempt surgery at [facility] or send for higher level of care due to vascular surgery needs. Met briefly with patient explained CM/SW role. Patient very sleepy/groggy at time of visit. She report to [employer] FEEDER CATCHER that she resides alone and has no friends close by. Patient reports that she uses cane/walker for ambulation. Patient also reports driving? Patient has son (Francesco) whom lives out of state. Notified patient that it would be highly likely that she will need SNF when medically stable. Patient reports that she prefers to go home but at this time due to medications not too sure if she fully understands her current level of needs. Anticipate transfer to higher level vs. surgery and SNF. SNF options will need to be gone over with patient once it's decided on whether or not she is staying [facility] expedited referral started. Anticipate patient will have care needs long-term but at this time too soon to tell. P: CM team following medical plan closely. Surgery here and SNF vs. transfer. [facility] Discharge Planning/Care Management Advanced directive, confirm from FAMILY Start: 01/14/23 07:02 Freq: Q24H Status: Active Protocol: Document 01/14/23 08:00 EM (Rec: 01/14/23 08:55 EM [id number]) Advance Directive, confirm on record Time 08:55 Person contacted self Copy received No CM Discharge Assessment Start: 01/14/23 14:37 Freq: Status: Active Protocol: Document 01/14/23 14:38 KJS (Rec: 01/14/23 14:58 KJS [id number]) Discharge Planning Assessment Assigned Features Editor AYSHA Das Contact Information Francesco Faulkner (son) (out of state) Advance Directives? Yes Advance Directives on File No History Provided By Patient Prior Living Arrangements Mobile home Household Members none Type of transporation used prior to Drives own vehicle admit Comment Patient reports that she drives on regular basis. Patient called 911 for this hopsitalization. Independent with ADL's No: Patient states I prior to admit but doubtful Is patient alert and oriented? No: Sleepy on medication at time of visit. Needs Assistance With Bathing,Grooming,Meal Prep, Toileting Caregiver for Another No DME Already Rented / Owned FWW / Walker,Cane Comment Patient using or having a wheelchair. Patient reports that she uses cane and walker at baseline. Patient denies getting any assitance in the residence. Son lives out of state and is only contact. Patient/Family Preference Group Home Facility Comment Definately anticipate patient will need SNF. Patient groggy today (day of admit) but agreeable. Surgery consult pending for potential amputation of toe or foot? Comment Per provider patient may need to be transferred depending on what surgery says. Barriers to Discharge Yes Discharge Plan Group Home Facility Transportation Arrangement TBD Referrals Initiated Group Home Additional Comment Placed call to [facility] to check and see if they accept [facility] [facility]. Per admissions they do not. Will request CM team f/u after it is determined if patient will remain at [facility] or transfer. Inpatient Status as of 01/14/23 Medicare Choice List Provided No SNF/HH Preference SNF choices will be limited due to patient's insurance. Will need to send to all [facility] facilities once it is known whether or not patient will remain at [facility] This will need to be discussed with patient once less drowsy. Comment Pending Whiteboard Updated in Patient Room with Yes name and ext. # of Features Editor Review Status In Process Next Review Type Continued Stay Review
[2023-01-14] MEDS: ALBUTEROL 2.5 MG/3 ML NEB (ADULT) INH (16:07)
--- NOTE | 2023-01-14 17:11 | PC.NURSE ---
1711: Patient awake, alert, and oriented. Calm and cooperative. Poor appetite, however taking adequate PO fluids. Q2 hr repositioning and support with pillows. Continue afebrile, HR 120 and BP 168/66, Dr. Mccoy made aware. Tylenol PRN for pain. IVF infusing. Pure wick in place, voiding > 500 ml this shift. RLE redness, edematous, and small amount of drainage noted unchanged throughout the shift. Mild SOB with exp diffuse wheezing, RT notified for PRN breathing tx. Placed on O2 1L via NC, sats 91-92%. Dr. Mccoy made aware regarding O2 requirement. Offered Nicotine patch, patient refused. Also refusing SCDs while sleeping. Son Francesco updated via phone, lives in [place]. Per patient, Francesco will be arriving on Sunday. High risk precautions in place, call light within reach. Contact precautions per policy.
[2023-01-14] MEDS: BACLOFEN 10 MG TABLET 40 MG PO (22:59)
[2023-01-14] MEDS: OXYCODONE IR 5 MG TABLET PO (22:59)
[2023-01-14] MEDS: PHENYTOIN ER 100 MG CAPSULE 200 MG PO (23:00)
[2023-01-15] VITALS (32 sets, daily range): BP systolic 79–189; BP diastolic 49–86; PULSE 72–150; RESP 14–32; TEMP 35.5–37.9; O2SAT 89–96; BMI 37.5; BMI 39.7
[2023-01-15] MEDS: OXYCODONE IR 5 MG TABLET PO (02:03)
[2023-01-15] MEDS: MEROPENEM 1 GM in SODIUM CHLORIDE 0.9% 100 ML IV ×3 (04:17→20:35)
[2023-01-15] MEDS: OXYCODONE IR 10 MG TABLET PO ×5 (04:33→23:09)
[2023-01-15] MEDS: GABAPENTIN 100 MG CAPSULE PO ×3 (04:34→20:28)
[2023-01-15 05:56] LABS: Add Manual Diff / Slide Review NO; Basophils Absolute Auto 100 /uL (0-100); Basophils Percent Auto 0.5 % (0-2); Eosinophils Absolute Auto 0 /uL (0-450); Hemoglobin 11.4 g/dL (12.0-16.0); Lymphocytes Absolute Auto 1100 /uL (1100-4500); Lymphocytes Percent Auto 5.5 % (25-40); Mean Corpuscular HGB Conc 33.6 % (30-36); Mean Corpuscular Hemoglobin 29.6 PG (26-34); Mean Corpuscular Volume 88.1 fL (80-100); Monocytes Absolute Auto 900 /uL (0-900); Monocytes Percent Auto 4.8 % (3-14); Neutrophils Absolute Auto 17000 /uL (1500-7000); Neutrophils Percent Auto 89.2 % (50-75); Platelet Count 385 X10^3/uL (150-400); Red Blood Cell Count 3.86 X10^6/uL (4.0-5.2); Red Cell Distribution Width 14.1 % (11.6-14.8)
[2023-01-15 06:00] LABS: INR 1.8 (0.9-1.3)
[2023-01-15 06:08] LABS: Alanine Aminotransferase 37 IU/L (<35); Albumin 3.3 g/dL (3.5-5.0); Albumin Globulin Ratio 0.9 (1.0-2.8); Alkaline Phosphatase 136 U/L (38-126); Aspartate Aminotransferase 46 IU/L (14-36); BUN Creatinine Ratio 19.4 (6-22); Bilirubin Total 0.8 mg/dL (0.2-1.3); Blood Urea Nitrogen 12 mg/dL (7-17); Calcium 8.3 mg/dL (8.4-10.2); Carbon Dioxide 21 mmol/L (22-32); Chloride 101 mmol/L (98-107); Estimated Glomerular Filt Rate > 60 mL/min (>60); Globulin 3.5 g/dL (1.7-4.1); Glucose 105 mg/dL (80-110); HEMOLYSIS < 15 (0-50); Potassium 3.1 mmol/L (3.4-5.1); Sodium 133 mmol/L (137-145); Total Protein 6.8 g/dL (6.3-8.2)
[2023-01-15] MEDS: PANTOPRAZOLE DR 20 MG TABLET PO (06:10)
--- NOTE | 2023-01-15 07:58 | PM.PN.1 ---
Subjective Subjective Interval history: Patient admitted yesterday due to ongoing infection involving the right toe. Complaining of right foot pain. Exam Vital Signs (past 8 hours): - 01/15/23 04:15 01/15/23 07:35 Temperature 98.2 F Pulse Rate 108 H Respiratory Rate 26 H Blood Pressure 175/72 H Pulse Oximetry 91 91 Oxygen Delivery Method Nasal Cannula Oxygen Flow Rate 1 1 Fraction of Inspired Oxygen 24 Fraction of Inspired Oxygen 24 SaO2/FiO2 Ratio 379 Oxygen Delivery Method Nasal Cannula Oxygen Flow Rate 1 Narrative Exam Narrative: Minimal improvement with the IV antibiotics. As mentioned in the consult note, patient is going to need vascular studies to evaluate blood flow to both feet. Would have the patient be NPO for possible surgery this evening depending on timing of vascular studies. Objective Labs 01/15/23 05:33 01/15/23 05:33 Labs: Laboratory Results - last 24 hr 01/14/23 01/14/23 01/15/23 01:07 08:15 05:33 WBC RBC Hgb Hct MCV MCH MCHC RDW Plt Count Neut % (Auto) Lymph % (Auto) [place] % (Auto) Eos % (Auto) Baso % (Auto) Neut # (Auto) Lymph # (Auto) [place] # (Auto) Eos # (Auto) Baso # (Auto) PT 69.7 H D 21.0 H D INR 6.0 H* 1.8 H Sodium Potassium Chloride Carbon Dioxide BUN Creatinine Estimated GFR BUN/Creatinine Ratio Glucose Calcium Total Bilirubin AST ALT Alkaline Phosphatase Total Protein Albumin Globulin Albumin/Globulin Ratio A.calcoaceticus-baumannii cmplx PCR Not detected Bacteroides fragilis Not detected Stephanie albicans (PCR) Not detected Stephanie auris (PCR) Not detected C. glabrata (PCR) Not detected C. krusei (PCR) Not detected C. parapsilosis (PCR) Not detected C. tropicalis (PCR) Not detected C. neoform/gattii (PCR) Not detected Enterobacterales (PCR) Not detected E. cloacae complex PCR Not detected Enterococc faecalis PCR Not detected Enterococc faecium PCR Not detected E. coli (PCR) Not detected H. influenzae (PCR) Not detected Klebsiella aerogenes (PCR) Not detected Klebsiella oxytoca PCR Not detected Klebsiella pneumoniae Not detected List. monocytogenes PCR Not detected N. meningitidis (PCR) Not detected Proteus species (PCR) Not detected Salmonella spp. (PCR) Not detected Serratia marcescens PCR Not detected Staphylococcus sp PCR Not detected Staph aureus (PCR) Not detected Staph epidermidis (PCR) Not detected Staph lugdunensis PCR Not detected S. maltophilia (PCR) Not detected Streptococcus sp PCR Detected H Group A Strep (PCR) Not detected Strep agalactiae (PCR) Not detected Strep pneumoniae (PCR) Not detected P. aeruginosa (PCR) Not detected 01/15/23 01/15/23 05:33 05:33 WBC 19.0 H RBC 3.86 L Hgb 11.4 L Hct 34.0 L MCV 88.1 MCH 29.6 MCHC 33.6 RDW 14.1 Plt Count 385 Neut % (Auto) 89.2 H Lymph % (Auto) 5.5 L [place] % (Auto) 4.8 Eos % (Auto) 0.0 L Baso % (Auto) 0.5 Neut # (Auto) 51414 H Lymph # (Auto) 1100 [place] # (Auto) 900 Eos # (Auto) 0 Baso # (Auto) 100 PT INR Sodium 133 L Potassium 3.1 L Chloride 101 Carbon Dioxide 21 L BUN 12 Creatinine 0.62 Estimated GFR > 60 BUN/Creatinine Ratio 19.4 Glucose 105 Calcium 8.3 L Total Bilirubin 0.8 AST 46 H ALT 37 H Alkaline Phosphatase 136 H Total Protein 6.8 Albumin 3.3 L Globulin 3.5 Albumin/Globulin Ratio 0.9 L A.calcoaceticus-baumannii cmplx PCR Bacteroides fragilis Stephanie albicans (PCR) Stephanie auris (PCR) C. glabrata (PCR) C. krusei (PCR) C. parapsilosis (PCR) C. tropicalis (PCR) C. neoform/gattii (PCR) Enterobacterales (PCR) E. cloacae complex PCR Enterococc faecalis PCR Enterococc faecium PCR E. coli (PCR) H. influenzae (PCR) Klebsiella aerogenes (PCR) Klebsiella oxytoca PCR Klebsiella pneumoniae List. monocytogenes PCR N. meningitidis (PCR) Proteus species (PCR) Salmonella spp. (PCR) Serratia marcescens PCR Staphylococcus sp PCR Staph aureus (PCR) Staph epidermidis (PCR) Staph lugdunensis PCR S. maltophilia (PCR) Streptococcus sp PCR Group A Strep (PCR) Strep agalactiae (PCR) Strep pneumoniae (PCR) P. aeruginosa (PCR) PFSH Medical History Smoker Social History household members: none Smoking Status: Current every day smoker alcohol intake: never Assessment & Plan Assessment & Plan narrative: NPO starting now. Possible surgery in the evening depending on the timing of vascular studies.
--- NOTE | 2023-01-15 08:20 | PM.PN.1 ---
Subjective Subjective Interval history: Patient complains of pain to the right lower extremity, unchanged from yesterday. States pain medication is not helping. Denies fever, chills, nausea, vomiting. Exam Vital Signs (past 8 hours): - 01/15/23 04:15 01/15/23 07:35 Temperature 98.2 F Pulse Rate 108 H Respiratory Rate 26 H Blood Pressure 175/72 H Pulse Oximetry 91 91 Oxygen Delivery Method Nasal Cannula Oxygen Flow Rate 1 1 Fraction of Inspired Oxygen 24 Fraction of Inspired Oxygen 24 SaO2/FiO2 Ratio 379 Oxygen Delivery Method Nasal Cannula Oxygen Flow Rate 1 Narrative Exam Narrative: 72 year old female, obese, in mild distress. Remains tachypneic and tachycardic. Awake, alert, and oriented. RLE erythematous, firm, and painful to light touch. RLE unchanged from consultation: Right leg shows significant cellulitis involving the foot as well as the lower leg but not progressing to the patella.? Infectious process mainly seems to be involving the great toe.? No drainage on today's evaluation but some ulceration to the dorsal aspect of the great toe.? Patient states this is where the majority of the drainage was coming from.? Signs of vascular compromise involving both feet.? Left foot has a chronic ulcer to the plantar aspect of the foot over the great toe.? Patient is unsure how long that has been there.? But both feet show signs of vascular compromise as well as signs of decrease sensation and signs of neuropathy to both feet.? No sign of any active infectious process involving the left foot or leg. Objective Labs 01/15/23 05:33 01/15/23 05:33 Labs: Laboratory Results - last 24 hr 01/14/23 01/14/23 01/15/23 01:07 08:15 05:33 WBC RBC Hgb Hct MCV MCH MCHC RDW Plt Count Neut % (Auto) Lymph % (Auto) [place] % (Auto) Eos % (Auto) Baso % (Auto) Neut # (Auto) Lymph # (Auto) [place] # (Auto) Eos # (Auto) Baso # (Auto) PT 69.7 H D 21.0 H D INR 6.0 H* 1.8 H Sodium Potassium Chloride Carbon Dioxide BUN Creatinine Estimated GFR BUN/Creatinine Ratio Glucose Calcium Total Bilirubin AST ALT Alkaline Phosphatase Total Protein Albumin Globulin Albumin/Globulin Ratio A.calcoaceticus-baumannii cmplx PCR Not detected Bacteroides fragilis Not detected Stephanie albicans (PCR) Not detected Stephanie auris (PCR) Not detected C. glabrata (PCR) Not detected C. krusei (PCR) Not detected C. parapsilosis (PCR) Not detected C. tropicalis (PCR) Not detected C. neoform/gattii (PCR) Not detected Enterobacterales (PCR) Not detected E. cloacae complex PCR Not detected Enterococc faecalis PCR Not detected Enterococc faecium PCR Not detected E. coli (PCR) Not detected H. influenzae (PCR) Not detected Klebsiella aerogenes (PCR) Not detected Klebsiella oxytoca PCR Not detected Klebsiella pneumoniae Not detected List. monocytogenes PCR Not detected N. meningitidis (PCR) Not detected Proteus species (PCR) Not detected Salmonella spp. (PCR) Not detected Serratia marcescens PCR Not detected Staphylococcus sp PCR Not detected Staph aureus (PCR) Not detected Staph epidermidis (PCR) Not detected Staph lugdunensis PCR Not detected S. maltophilia (PCR) Not detected Streptococcus sp PCR Detected H Group A Strep (PCR) Not detected Strep agalactiae (PCR) Not detected Strep pneumoniae (PCR) Not detected P. aeruginosa (PCR) Not detected 01/15/23 01/15/23 05:33 05:33 WBC 19.0 H RBC 3.86 L Hgb 11.4 L Hct 34.0 L MCV 88.1 MCH 29.6 MCHC 33.6 RDW 14.1 Plt Count 385 Neut % (Auto) 89.2 H Lymph % (Auto) 5.5 L [place] % (Auto) 4.8 Eos % (Auto) 0.0 L Baso % (Auto) 0.5 Neut # (Auto) 85919 H Lymph # (Auto) 1100 [place] # (Auto) 900 Eos # (Auto) 0 Baso # (Auto) 100 PT INR Sodium 133 L Potassium 3.1 L Chloride 101 Carbon Dioxide 21 L BUN 12 Creatinine 0.62 Estimated GFR > 60 BUN/Creatinine Ratio 19.4 Glucose 105 Calcium 8.3 L Total Bilirubin 0.8 AST 46 H ALT 37 H Alkaline Phosphatase 136 H Total Protein 6.8 Albumin 3.3 L Globulin 3.5 Albumin/Globulin Ratio 0.9 L A.calcoaceticus-baumannii cmplx PCR Bacteroides fragilis Stephanie albicans (PCR) Stephanie auris (PCR) C. glabrata (PCR) C. krusei (PCR) C. parapsilosis (PCR) C. tropicalis (PCR) C. neoform/gattii (PCR) Enterobacterales (PCR) E. cloacae complex PCR Enterococc faecalis PCR Enterococc faecium PCR E. coli (PCR) H. influenzae (PCR) Klebsiella aerogenes (PCR) Klebsiella oxytoca PCR Klebsiella pneumoniae List. monocytogenes PCR N. meningitidis (PCR) Proteus species (PCR) Salmonella spp. (PCR) Serratia marcescens PCR Staphylococcus sp PCR Staph aureus (PCR) Staph epidermidis (PCR) Staph lugdunensis PCR S. maltophilia (PCR) Streptococcus sp PCR Group A Strep (PCR) Strep agalactiae (PCR) Strep pneumoniae (PCR) P. aeruginosa (PCR) PFSH Medical History Smoker Social History household members: none Smoking Status: Current every day smoker alcohol intake: never Assessment & Plan Assessment & Plan narrative: Exam of RLE including toe is unchanged. Marginal pain control. Awaiting decision for amputatioin of right great toe vs transfer for vascular workup and decision for surgery. Remain NPO pending possible surgery.
[2023-01-15] MEDS: cloNIDine 0.1 MG TABLET 0.2 MG PO ×2 (08:28→20:29)
[2023-01-15] MEDS: BACLOFEN 10 MG TABLET 40 MG PO (08:29)
[2023-01-15] MEDS: SERTRALINE 50 MG TABLET 100 MG PO (08:29)
[2023-01-15] MEDS: lisinopriL 20 MG TABLET 40 MG PO (08:32)
[2023-01-15] MEDS: METOPROLOL IR 50 MG TABLET 100 MG PO ×2 (08:32→20:28)
[2023-01-15] MEDS: POTASSIUM CHLORIDE 20 MEQ TAB 40 MEQ PO ×2 (08:32→13:56)
[2023-01-15] MEDS: PHENYTOIN ER 100 MG CAPSULE 200 MG PO ×2 (08:44→20:29)
[2023-01-15] MEDS: metroNIDAZOLE 500 MG/100 ML PIGGYBACK 100 MG IV ×2 (09:50→18:16)
--- NOTE | 2023-01-15 10:38 | CM.DPC ---
DCP Cont: Per Ortho, plan is likely I&D today of pt's toe and then Hospitalist attempting to determine if CTA run off for vascular study can be done here at [facility] towards determining if hospital transfer needed for higher level of care with Vascular Surgeon. Per MD, pt's cultures also returned and are strep bacteremia(+) and pt remains quite groggy today and painful. Per RN, son plans to fly in from [place] tomorrow 01/16/23. Plan: SW to follow closely after I&D today and attempts at vascular study to determine amputation here vs hospital transfer for Vascular Surgeon. AYSHA Leary
[2023-01-15] MEDS: ACETAMINOPHEN 325 MG TABLET 650 MG PO ×2 (11:08→20:35)
--- NOTE | 2023-01-15 12:30 | PM.PN.1 ---
Subjective Subjective Interval history: 72 F with PMH of PE, HTN seen for follow up of RLE cellulitis, gram positive bacteremia. Pending possible I&D with orthopedics today, then may need vascular workup with or without transfer. She has uncontrolled pain today in her R leg, not helped with oxycodone. Exam Vital Signs (past 8 hours): - 01/15/23 07:35 01/15/23 08:28 01/15/23 08:00 Temperature 97.5 F L Pulse Rate 119 H 119 H Respiratory Rate 16 Blood Pressure 189/86 H Pulse Oximetry 91 91 Oxygen Delivery Method Nasal Cannula Oxygen Flow Rate 1 0 Fraction of Inspired Oxygen 24 01/15/23 08:50 01/15/23 10:21 01/15/23 11:44 Temperature 100.2 F H Pulse Rate 84 Respiratory Rate Blood Pressure Pulse Oximetry Oxygen Delivery Method Room Air Oxygen Flow Rate Fraction of Inspired Oxygen Fraction of Inspired Oxygen 24 SaO2/FiO2 Ratio 379 Oxygen Delivery Method Room Air Oxygen Flow Rate 0 Narrative Exam Narrative: She is alert and oriented x3. She is weakned as would be expected from this severe infection. Heart is regular rate and rhythm without murmur Lungs are clear to auscultation bilaterally Large left 1st metatarsal ulceration present. Large swollen right large toe. 2+ pitting edema of the right lower leg. No edema of left lower leg. Cellulitic pink discoloration extending up to just above the knee still within demarcations drawn in the ED on admission. Objective Labs 01/15/23 05:33 01/15/23 05:33 Labs: Laboratory Results - last 24 hr 01/14/23 01/15/23 01/15/23 01:07 05:33 05:33 WBC 19.0 H RBC 3.86 L Hgb 11.4 L Hct 34.0 L MCV 88.1 MCH 29.6 MCHC 33.6 RDW 14.1 Plt Count 385 Neut % (Auto) 89.2 H Lymph % (Auto) 5.5 L [place] % (Auto) 4.8 Eos % (Auto) 0.0 L Baso % (Auto) 0.5 Neut # (Auto) 15914 H Lymph # (Auto) 1100 [place] # (Auto) 900 Eos # (Auto) 0 Baso # (Auto) 100 PT 21.0 H D INR 1.8 H Sodium Potassium Chloride Carbon Dioxide BUN Creatinine Estimated GFR BUN/Creatinine Ratio Glucose Calcium Total Bilirubin AST ALT Alkaline Phosphatase Total Protein Albumin Globulin Albumin/Globulin Ratio A.calcoaceticus-baumannii cmplx PCR Not detected Bacteroides fragilis Not detected Stephanie albicans (PCR) Not detected Stephanie auris (PCR) Not detected C. glabrata (PCR) Not detected C. krusei (PCR) Not detected C. parapsilosis (PCR) Not detected C. tropicalis (PCR) Not detected C. neoform/gattii (PCR) Not detected Enterobacterales (PCR) Not detected E. cloacae complex PCR Not detected Enterococc faecalis PCR Not detected Enterococc faecium PCR Not detected E. coli (PCR) Not detected H. influenzae (PCR) Not detected Klebsiella aerogenes (PCR) Not detected Klebsiella oxytoca PCR Not detected Klebsiella pneumoniae Not detected List. monocytogenes PCR Not detected N. meningitidis (PCR) Not detected Proteus species (PCR) Not detected Salmonella spp. (PCR) Not detected Serratia marcescens PCR Not detected Staphylococcus sp PCR Not detected Staph aureus (PCR) Not detected Staph epidermidis (PCR) Not detected Staph lugdunensis PCR Not detected S. maltophilia (PCR) Not detected Streptococcus sp PCR Detected H Group A Strep (PCR) Not detected Strep agalactiae (PCR) Not detected Strep pneumoniae (PCR) Not detected P. aeruginosa (PCR) Not detected 01/15/23 05:33 WBC RBC Hgb Hct MCV MCH MCHC RDW Plt Count Neut % (Auto) Lymph % (Auto) [place] % (Auto) Eos % (Auto) Baso % (Auto) Neut # (Auto) Lymph # (Auto) [place] # (Auto) Eos # (Auto) Baso # (Auto) PT INR Sodium 133 L Potassium 3.1 L Chloride 101 Carbon Dioxide 21 L BUN 12 Creatinine 0.62 Estimated GFR > 60 BUN/Creatinine Ratio 19.4 Glucose 105 Calcium 8.3 L Total Bilirubin 0.8 AST 46 H ALT 37 H Alkaline Phosphatase 136 H Total Protein 6.8 Albumin 3.3 L Globulin 3.5 Albumin/Globulin Ratio 0.9 L A.calcoaceticus-baumannii cmplx PCR Bacteroides fragilis Stephanie albicans (PCR) Stephanie auris (PCR) C. glabrata (PCR) C. krusei (PCR) C. parapsilosis (PCR) C. tropicalis (PCR) C. neoform/gattii (PCR) Enterobacterales (PCR) E. cloacae complex PCR Enterococc faecalis PCR Enterococc faecium PCR E. coli (PCR) H. influenzae (PCR) Klebsiella aerogenes (PCR) Klebsiella oxytoca PCR Klebsiella pneumoniae List. monocytogenes PCR N. meningitidis (PCR) Proteus species (PCR) Salmonella spp. (PCR) Serratia marcescens PCR Staphylococcus sp PCR Staph aureus (PCR) Staph epidermidis (PCR) Staph lugdunensis PCR S. maltophilia (PCR) Streptococcus sp PCR Group A Strep (PCR) Strep agalactiae (PCR) Strep pneumoniae (PCR) P. aeruginosa (PCR) PFSH Medical History Smoker Social History household members: none Smoking Status: Current every day smoker alcohol intake: never Assessment & Plan Assessment & Plan narrative: (1) Abscess of great toe, right with RLE cellulitis and gram positive bacteremia, present on admission. - Seen by Dr. Garcia and orthopedics team, likely I&D today, remains NPO - proceed with vascular imaging and suspect need for consultation with vascular surgery for possible transfer, have ordered CT but timing depending on I&D. - INR supratherapeutic on admission, taken off warfarin, INR 1.8 this morning. - INR neo to 6.0 on 01/14 so Vitamin K 5 mg IV was given - Meropenem for BC positive for G+ cocci, Gram negatives on wound culture. Wound culture with group G strep as well. - WBC improving today slightly, but continues to have pain and cellulitis unchanging (2) HTN (hypertension): Clonidine, metoprolol, Lisinopril - grossly uncontrolled on admission, but also with pain. (3) Pulmonary embolism: -Pending vascular procedure, toe or BKA amputation holding Coumadin -Reverse elevated INR with Vitamin K (4) Peripheral neuropathy: ? - continue pain control (5) GERD (gastroesophageal reflux disease): PPI (6) Depression: Zoloft (7) Smoker: nicotine replacement prn, albuterol prn Additional history obtained via discussion with orthopedics provider. I have reviewed patient's labs, imaging, and documentation. Discussed plan with patient and case management today. Code: Full, surrogate is annmarie platt, family Dispo: inpatient, possible transfer as discussed above.
--- NOTE | 2023-01-15 12:55 | DI.CT.S_ITS ---
PROCEDURE: CT ANGIO ABD AORTA RUNOFF INDICATIONS: suspected b/l PAD TECHNIQUE: After the administration of intravenous contrast, 2.5 mm sections acquired from T12 to the feet, with optional delayed image acquisition from the knees to the feet. 3-dimensional maximum intensity projection (MIP) coronal and sagittal reformats, and/or 3-dimensional volume rendering reformatting was then performed. For radiation dose reduction, the following was used: automated exposure control. COMPARISON: None. FINDINGS: Image quality: Excellent. Extravascular tissues: Imaging occurred is from the level of the mid to lower abdomen. Only the inferior aspect of liver is included and the lower half of the kidneys. Visualized structures are unremarkable. The pancreas and spleen are not included, as well as the adrenals period. Non opacified bowel loops demonstrate normal wall thickness and enhancement. No free fluid or air. No retroperitoneal or mesenteric adenopathy. No ventral hernias. Bladder wall thickness is normal. No inguinal hernias or adenopathy. No suspicious bony lesions. No vertebral body compression fractures. Remote hysterectomy. Abdominal aorta: Visualized distal aorta is widely patent with wall calcifications. Right lower extremity: No significant common iliac stenosis or external iliac stenosis. Common femoral and SFA and popliteal are widely patent. Widely patent 3 runoff vessels. There is diffuse edema in the foot and ankle and lower leg. Left lower extremity: Common iliac, external iliac, common femoral, SFA, and popliteal are patent. Posterior tibial is a normal caliber normal appearing vessel. It is the dominant flow to the foot. The anterior tibial appears to be continuous. The peroneal is diseased. There is mild lower leg edema. IMPRESSION: 1. The aorta and iliacs are widely patent. 2. Right lower extremity runoff is patent. 3. On the left, there appear to be at least 2 patent runoff vessels, with the posterior tibial artery being the dominant flow to the foot. There is no stenosis above the 3 runoff vessels. Dictated by: Zachary Gamez M.D. on 01/15/2023 at 15:50 Approved by: Zachary Gamez M.D. on 01/15/2023 at 15:57
[2023-01-15] MEDS: HYDROMORPHONE 2 MG INJ IV (12:58)
[2023-01-15] MEDS: dilTIAZem 5 MG/ML SDV 10 MG IV (13:02)
--- NOTE | 2023-01-15 14:12 | PC.NURSE ---
Addendum entered by Becca Martines R.N. 01/15/23 18:26: late note: notified regarding patient's change of status. no new orders and will still be going to surgery. Original Note: around noon patient's HR up to 140-150bpm on tele, denies chest pain or any palpitation. Adrianna-RN and I notified provider. EKG was ordered. gave diltiazem 10mg IV push but HR remained around 136-150's provider aware. notified provider multiple times that she is still tachy HR all the way to 150's. no new orders. pt was febrile provider aware, now temp 97.9.
--- NOTE | 2023-01-15 16:04 | PM.PREOP ---
Pre-operative Note Interval Note History & Physical reviewed/Exam performed by Physician: Yes Changes to H&P: No
--- NOTE | 2023-01-15 16:52 | SUR.OPER ---
Supine on padded OR bed, head on pillow, arms secured on padded arm boards at <90 degrees abduction, legs uncrossed, safety belt at thigh, tape over blanket over lower legs.
[2023-01-15] MEDS: BUPIVACAINE 0.25% (PF) 30 ML, EPINEPHrine 0.15 MG INJ (17:12)
--- NOTE | 2023-01-15 17:13 | PM.OP.1 ---
Operative Date/Time/Diagnoses Date of procedure: 01/15/23 Time of procedure: 16:45 Pre-op diagnosis: Right great toe infection Post-op diagnosis: same Procedure & Clinicians Procedure: Irrigation and debridement of right great toe Same procedure as scheduled: Yes Indications: Right great toe infection Surgeon: Herberth Garcia Click Yes if Unassisted: Yes Anesthesia Type: MAC +/- Operative Notes Findings: Purulence involving the toe mainly the dorsal and ulnar aspect. No sign of any tracking to the plantar surface. Closure Type: primary Specimen(s): other (Specimen sent for cultures and sensitivity as well as aerobic and anaerobic.) Estimated Blood Loss (mL): 0 Tourniquet time (min): 14 Procedure in detail: On date of service, patient was met in the holding area where her operative site was signed and witnessed by the OR staff. All the patient's questions and concerns were answered to her full satisfaction. Patient was taken back to the operating theater and placed on the operating table in a supine position. Great care was taken to ensure that all bony prominences were appropriately padded. Well-padded tourniquet was placed up along the calf. Time-out was performed verifying patient's name procedure and operative site. The right leg was prepped and draped in the normal sterile fashion. Elevation was used to exsanguinate the limb and the tourniquet was turned up to 250 mmHg. Marcaine was used to digitally blocked the toe. Once we had adequate anesthesia an incision was made to the dorsal aspect of the toe. There was positive purulence and this fluid was sent for cultures and sensitivities. Sharp dissection was continued using a 15 blade exposing the extensor tendon as well as going to the lateral aspect of the toe. Some necrotic changes to the extensor tendon. No sign of any bony involvement. No sign of any obvious joint involvement. No sign of any tracking to the plantar surface. Using a rongeur, all necrotic tissue was debrided from the skin soft tissue and tendon. Some of this soft tissue was sent also to microbiology for culture sensitivities as well as aerobic and anaerobic testing. Once we felt like we thoroughly debrided the wound with a rongeur it was then copiously irrigated with saline. Is no sign of any obvious fluid collections or other signs of abscess. The wound was then packed and then loosely closed. The toe was cleaned, dried, and dressed the patient was taken to the PACU in stable condition. Complications: none Post-operative Condition: stable Disposition: Acute Care Plan for aftercare: Patient will require wound care consult as well as a vascular consult due to concerns of vascular compromise to bilateral lower extremities. As well as possible podiatry consult for care of her great toe as well as the ulcer she has on her left great toe.
[2023-01-15] MEDS: LACTATED RINGERS 1,000 ML 125 ML IV (18:14)
[2023-01-15] MEDS: AMIODARONE 150 MG/100 ML PIGGYBACK 600 MG IV (18:45)
[2023-01-15] MEDS: AMIODARONE 360 MG/200 ML PIGGYBACK 33.33 MG IV (19:30)
[2023-01-15] MEDS: MAGNESIUM HYDROXIDE 30 ML UDC PO (20:28)
[2023-01-15] MEDS: DOCUSATE 100 MG CAPSULE PO (20:29)
[2023-01-15] MEDS: WARFARIN 5 MG TABLET PO (20:33)
[2023-01-15] MEDS: WARFARIN 1 MG TABLET PO (20:34)
[2023-01-15] MEDS: ALBUTEROL 2.5 MG/3 ML NEB (ADULT) INH (20:55)
[2023-01-15 21:53] LABS: MRSA (Nasal) PCR Not Detected (Not Detect)
[2023-01-15] MEDS: FUROSEMIDE 40 MG/4 ML VIAL 20 MG IV (22:20)
[2023-01-15] MEDS: dilTIAZem 5 MG/ML SDV 20 MG IV (22:20)
[2023-01-16] VITALS (63 sets, daily range): BP systolic 82–169; BP diastolic 47–87; PULSE 85–154; RESP 13–27; TEMP 36.6; O2SAT 90–95
[2023-01-16] MEDS: AMIODARONE 360 MG/200 ML PIGGYBACK 16.7 MG IV ×2 (01:27→13:14)
[2023-01-16] MEDS: metroNIDAZOLE 500 MG/100 ML PIGGYBACK 100 MG IV ×2 (01:28→08:47)
[2023-01-16] MEDS: HYDROMORPHONE 1 MG INJ 0.5 MG IV ×3 (03:00→22:29)
[2023-01-16] MEDS: MEROPENEM 1 GM in SODIUM CHLORIDE 0.9% 100 ML IV (04:22)
[2023-01-16] MEDS: OXYCODONE IR 10 MG TABLET PO ×5 (04:22→21:18)
[2023-01-16] MEDS: dilTIAZem 5 MG/ML SDV 10 MG IV ×2 (05:39→21:18)
[2023-01-16] MEDS: PANTOPRAZOLE DR 20 MG TABLET PO (05:39)
--- NOTE | 2023-01-16 06:01 | RT ---
E&T has been done by RT. Patient never used oxygen at home. BS: Clear with upper airway ex-wheezing around the neck. ALB PRN is given x1 last night, no effects/changes on breath sounds. According to the flowsheet I/O is positive 1600+ RN is notified.
[2023-01-16 06:07] LABS: Hematocrit 35.9 % (36-46); Hemoglobin 11.9 g/dL (12.0-16.0); Mean Corpuscular HGB Conc 33.1 % (30-36); Mean Corpuscular Hemoglobin 29.5 PG (26-34); Platelet Count 425 X10^3/uL (150-400); Red Blood Cell Count 4.03 X10^6/uL (4.0-5.2); Red Cell Distribution Width 14.5 % (11.6-14.8); White Blood Cell Count 16.3 X10^3/uL (4.5-11.0)
[2023-01-16 06:09] LABS: INR 1.7 (0.9-1.3); Prothrombin Time 19.7 SECONDS (10.1-12.7)
[2023-01-16 06:16] LABS: BUN Creatinine Ratio 28.2 (6-22); Blood Urea Nitrogen 22 mg/dL (7-17); Carbon Dioxide 23 mmol/L (22-32); Chloride 103 mmol/L (98-107); Estimated Glomerular Filt Rate > 60 mL/min (>60); Glucose 108 mg/dL (80-110); HEMOLYSIS < 15 (0-50); Potassium 3.8 mmol/L (3.4-5.1); Sodium 134 mmol/L (137-145)
[2023-01-16] MEDS: ALBUTEROL/IPRATROPIUM 3 ML AMPUL INH ×2 (07:37→21:36)
[2023-01-16] MEDS: METOPROLOL IR 50 MG TABLET 100 MG PO (08:45)
[2023-01-16] MEDS: PHENYTOIN ER 100 MG CAPSULE 200 MG PO ×2 (08:45→21:19)
[2023-01-16] MEDS: GABAPENTIN 100 MG CAPSULE PO ×3 (08:45→21:20)
[2023-01-16] MEDS: lisinopriL 20 MG TABLET 40 MG PO (08:45)
[2023-01-16] MEDS: cloNIDine 0.1 MG TABLET 0.2 MG PO (08:45)
[2023-01-16] MEDS: LACTATED RINGERS 1,000 ML 125 ML IV (08:46)
[2023-01-16] MEDS: DOCUSATE 100 MG CAPSULE PO ×2 (08:46→21:21)
[2023-01-16] MEDS: dilTIAZem SR 60 MG PO ×3 (09:06→21:20)
[2023-01-16] MEDS: cefTRIAXone 2,000 MG in SODIUM CHLORIDE 0.9% 100 ML 200 MG IV (10:38)
--- NOTE | 2023-01-16 14:10 | PT.IIE ---
Current Diagnoses Nicotine dependence, unspecified, uncomplicated (01/14/23) Depression, unspecified (01/14/23) Polyneuropathy, unspecified (01/14/23) Essential (primary) hypertension (01/14/23) Other pulmonary embolism without acute cor pulmonale (01/14/23) Gastro-esophageal reflux disease without esophagitis (01/14/23) Cutaneous abscess of right foot (01/14/23) Cellulitis of right lower limb (01/14/23) Surgery Performed Operation Date: 01/15/23 16:30 Actual Procedures p Incision and Drainage great toe(Right) - Herberth Garcia MD Medical History Smoker Physical Therapy Inpatient Evaluation/Re-Eval M1 PT/OT-IP Prior Functional Status Start: 01/16/23 16:22 Freq: NEEDED Status: Active Protocol: Document 01/16/23 14:10 AB (Rec: 01/16/23 16:36 AB [id number]) Medical Review Prior Functional Status Medical History Reviewed Yes Communication able to make needs known Mobility and Gait pt stated that she is modified independent with all mobilities using either a SPC or 4WW indoors but does not use any AD; uses 1-2 SPC for outdoor mobility Social History Household Members none Living Arrangements Mobile home Number of Floors (Floors) One Floor Number of Stairs To Enter/Railing? 3 steps with B rails to enter Home Environment Standard Height Toilet,Tub/ Shower Doors Home Equipment Hand Held Shower Additional Social History Comment pt stated that she sponge bathes and does not take showers M2 PT-IP Current Condition Start: 01/16/23 16:22 Freq: NEEDED Status: Active Protocol: Document 01/16/23 14:10 AB (Rec: 01/16/23 16:36 AB [id number]) Physical Therapy Current Condition Current Condition Evaluation Date 01/16/23 Treatment Diagnosis R great toe infection s/p I&D; difficulty in walking Onset Date 01/14/23 M3 PT-IP Subjective Start: 01/16/23 16:22 Freq: NEEDED Status: Active Protocol: Document 01/16/23 14:10 AB (Rec: 01/16/23 16:36 AB [id number]) Subjective Physical Therapy Visit Type Type Initial Evaluation Visit Start Time 14:10 Visit Stop Time 14:56 Total Visit Minutes 46 Number of PASTRY COOK HELPER Visits 0 Physical Therapy Visit Comments Patient Comments agreeable to do PT Therapy Pain Assessment Pain When Pain Assessed At Rest Pain Present Pain Present Pain Reported Location Right Foot Intensity 5 Scale Used Numeric (0 - 10) Pain Management Techniques Distraction,Modification of Treatment,Re-positioning, Timing of Activity with Medications M4 PT-IP Mobility and Gait Start: 01/16/23 16:22 Freq: NEEDED Status: Active Protocol: Document 01/16/23 14:10 AB (Rec: 01/16/23 16:36 AB [id number]) PT-Bed Mobility Assessment Supine to Sit Supine to Sit Maximum Assistance,1 Person Assistance,2 Person Assistance ,Head of Bed Elevated,Bedrails Sit to Supine Sit to Supine Maximum Assistance,2 Person Assistance,Bedrails Scooting Scooting to Edge of Bed Dependent PT-Transfer Assessment Comments Mobility Comments pt in bed and agreeable to do PT. pt has O2 on at 2L/min with sat at 96% in supine. BP: 134/73. completed supine to sit with HOB elevated and pt used bed rail to assist max A x 1-2 and max cues. (+) SOB and O2 sat decreased to 87%. pt rested and O2 sat increased to 94% after resting. pt c/o dizziness but BP stable. pt agreed to stand and educated on NWB precaution on RLE. sit to stand x 2 attempts but pt unable to stand despite max A x 2 provided and bed height elevated. pt requested to go back to bed. sit to supine max A x 2 and max cues. total A x 2 for positioning in bed. call light and table placed within reach . PT-Balance Assessment Sitting Balance and Reactions Static Sitting Balance Ability Good Dynamic Sitting Balance Ability Fair M5 PT-IP Objective Assessments Start: 01/16/23 16:22 Freq: NEEDED Status: Active Protocol: Document 01/16/23 14:10 AB (Rec: 01/16/23 16:36 AB [id number]) Orientation Orientation/Cognition Level of Alertness Alert Orientation Age Safety Awareness Decreased Safety Awareness Gross Range of Motion Lower Extremity ROM Assessment Within Functional Limits Strength Lower Extremity Strength Assessment Within Functional Limits Sensation Assessment Sensation Gross Sensation Right LE Impaired,Left LE Impaired Sensation Description Numbness Comments Sensation Comments has chronic neuropathy on BLE Other Assessments Other Other Assessments pt has L great toe pad wound M6 PT-IP Treatment Start: 01/16/23 16:22 Freq: NEEDED Status: Active Protocol: Document 01/16/23 14:10 AB (Rec: 01/16/23 16:36 AB [id number]) Physical Therapy Treatment Education Education Provided Weight Bearing Status,Safety M7 PT-IP Assessment and Plan Start: 01/16/23 16:22 Freq: NEEDED Status: Active Protocol: Document 01/16/23 14:10 AB (Rec: 01/16/23 16:36 AB [id number]) PT Summary Assessment and Plan Potential Rehabilitation Potential Fair Status of Condition at Evaluation Evolving Summary Impairments Pain,ROM,Strength,Balance, Coordination,Sensation,Tone, Cognition,Bed Mobility, Transfers,Gait,Activity Tolerance Assessment Summary pt with R great toe infection and underwent I&D. pt unable to stand despite max A x 2 assist provided. pt will need mechanical lift for transfers . pt will require SNF rehab to improve overall strength and mobility. Goals Bed Mobility Goal Minimal Assistance Transfer Goal Moderate Assistance,Front Wheeled Walker Gait Goal Moderate Assistance,Front Wheel Walker Gait Distance 25 Other Goals improve bed mobility , transfers CGA using FWW, ambulation min A using FWW 30 ft Days to Meet Goals 10 Frequency of Treatment Frequency Of Treatment Once a Day Treatment Plan Physical Therapy Treatment Plan Bed Mobility Training,Transfer Training,Gait Training, Therapeutic Exercise,Balance Retraining,Post Op Education, Discharge Planning,Hot or Cold Pack,Neuromuscular Re-ed, Coordination Retraining,Manual Therapy Weight Bearing Status Weight Bearing Status Non-Weight Bearing Allowed Weight Bearing Amount (enter % RLE NWB or #) (%) Recommendations To Nursing Amount of Assist Needed Mechanical Lift Discharge Recommendations PT Discharge Recommendations SNF Rehab Transportation Needs at Discharge Wheelchair/Cabulance,Stretcher /Ambulance
--- NOTE | 2023-01-16 15:42 | PM.PN.1 ---
Subjective Subjective Interval history: 72 F with PMH of PE, HTN seen for follow up of RLE cellulitis, gram positive bacteremia. Now s/p I&D with orthopedics, CT angio without any obvious PAD. She continues to have pain but her R leg is improving she thinks. Exam Vital Signs (past 8 hours): - 01/16/23 07:50 01/16/23 08:00 01/16/23 08:01 Temperature Pulse Rate 123 H 129 H 128 H Respiratory Rate 24 18 17 Blood Pressure Pulse Oximetry 95 95 Oxygen Delivery Method Nasal Cannula Oxygen Flow Rate 2 Fraction of Inspired Oxygen 28 01/16/23 08:01 01/16/23 08:45 01/16/23 08:45 Temperature Pulse Rate 133 H 133 H Respiratory Rate Blood Pressure 155/63 H 155/63 H 155/63 H Pulse Oximetry Oxygen Delivery Method Oxygen Flow Rate Fraction of Inspired Oxygen 01/16/23 08:30 01/16/23 09:00 01/16/23 09:00 Temperature Pulse Rate 134 H 133 H Respiratory Rate 22 16 Blood Pressure 159/66 H Pulse Oximetry 95 94 Oxygen Delivery Method Oxygen Flow Rate Fraction of Inspired Oxygen 01/16/23 08:00 01/16/23 09:30 01/16/23 10:00 Temperature Pulse Rate 117 H Respiratory Rate 16 Blood Pressure 109/61 Pulse Oximetry 92 Oxygen Delivery Method Nasal Cannula Oxygen Flow Rate Fraction of Inspired Oxygen 01/16/23 10:00 01/16/23 10:30 01/16/23 11:00 Temperature Pulse Rate 111 H 109 H Respiratory Rate 15 21 Blood Pressure 113/68 Pulse Oximetry 92 94 Oxygen Delivery Method Oxygen Flow Rate Fraction of Inspired Oxygen 01/16/23 11:00 01/16/23 12:00 01/16/23 11:30 Temperature Pulse Rate 100 H 111 H Respiratory Rate 16 22 Blood Pressure Pulse Oximetry 94 94 Oxygen Delivery Method Nasal Cannula Oxygen Flow Rate Fraction of Inspired Oxygen 01/16/23 12:00 01/16/23 12:00 01/16/23 12:38 Temperature 97.9 F Pulse Rate 109 H Respiratory Rate 22 Blood Pressure 119/62 Pulse Oximetry 93 Oxygen Delivery Method Oxygen Flow Rate Fraction of Inspired Oxygen 01/16/23 12:30 01/16/23 13:00 01/16/23 13:00 Temperature Pulse Rate 111 H 118 H Respiratory Rate 19 19 Blood Pressure 115/67 Pulse Oximetry 91 92 Oxygen Delivery Method Oxygen Flow Rate Fraction of Inspired Oxygen 01/16/23 13:30 01/16/23 14:00 01/16/23 14:00 Temperature Pulse Rate 118 H 118 H Respiratory Rate 19 17 Blood Pressure 121/55 L Pulse Oximetry 93 93 Oxygen Delivery Method Oxygen Flow Rate Fraction of Inspired Oxygen 01/16/23 14:22 01/16/23 14:22 01/16/23 14:30 Temperature Pulse Rate 122 H 127 H Respiratory Rate 20 25 H Blood Pressure 131/63 Pulse Oximetry 93 Oxygen Delivery Method Oxygen Flow Rate Fraction of Inspired Oxygen 01/16/23 14:35 01/16/23 14:35 01/16/23 15:00 Temperature Pulse Rate 125 H Respiratory Rate 24 Blood Pressure 152/73 H 153/75 H Pulse Oximetry 92 Oxygen Delivery Method Oxygen Flow Rate Fraction of Inspired Oxygen 01/16/23 15:00 Temperature Pulse Rate 124 H Respiratory Rate 19 Blood Pressure Pulse Oximetry 93 Oxygen Delivery Method Oxygen Flow Rate Fraction of Inspired Oxygen Fraction of Inspired Oxygen 28 SaO2/FiO2 Ratio 379 Oxygen Delivery Method Nasal Cannula Oxygen Flow Rate 2 Narrative Exam Narrative: She is alert and oriented x3. She is weakned as would be expected from this severe infection. Heart is regular rate and rhythm without murmur Lungs are clear to auscultation bilaterally Large left 1st metatarsal ulceration present. R leg now banaged, erythema to knee on the R possibly slightly improved. 2+ pitting edema of the right lower leg. No edema of left lower leg. Objective Labs 01/16/23 05:41 01/16/23 05:41 Labs: Laboratory Results - last 24 hr 01/15/23 01/16/23 01/16/23 18:30 05:41 05:41 WBC 16.3 H RBC 4.03 Hgb 11.9 L Hct 35.9 L MCV 89.0 MCH 29.5 MCHC 33.1 RDW 14.5 Plt Count 425 H PT INR Sodium 134 L Potassium 3.8 Chloride 103 Carbon Dioxide 23 BUN 22 H Creatinine 0.78 Estimated GFR > 60 BUN/Creatinine Ratio 28.2 H Glucose 108 Calcium 8.0 L Nasal Screen MRSA (PCR) Not detected 01/16/23 05:41 WBC RBC Hgb Hct MCV MCH MCHC RDW Plt Count PT 19.7 H INR 1.7 H Sodium Potassium Chloride Carbon Dioxide BUN Creatinine Estimated GFR BUN/Creatinine Ratio Glucose Calcium Nasal Screen MRSA (PCR) [facility] Medical History Smoker Social History household members: none Smoking Status: Current every day smoker alcohol intake: never Assessment & Plan Assessment & Plan narrative: (1) Abscess of great toe, right with RLE cellulitis and Strep bacteremia, present on admission. - Seen by Dr. Garcia and orthopedics team, now POD#1 s/p I&D - CT angio with runoff without any obvious PAD of b/l LE. - INR supratherapeutic on admission, taken off warfarin initially, now restarted. - Meropenem initially for BC positive for G+ cocci, Gram negatives on wound culture. Wound culture with group G strep as well. Narrowed to Ceftriaxone 01/16. Will need 2 weeks of IV ceftriaxone for bacteremia. Repeat Blood culture 01/15 negative. - WBC improving today slightly, but continues to have pain and cellulitis unchanging (2) HTN (hypertension): Clonidine, metoprolol, Lisinopril - grossly uncontrolled on admission, but also with pain. Has been a bit better today. (3) Pulmonary embolism: -now on coumadin per pharmacy (4) Peripheral neuropathy: ? - continue pain control (5) GERD (gastroesophageal reflux disease): PPI (6) Depression: Zoloft (7) Smoker: nicotine replacement prn, albuterol prn 8. New diagnosis afib with RVR. - no history of afib - on coumadin. - currently on 100 mg BID of metoprolol, added 60 mg TID of diltiazem PO today, rate still elevated. On amiodarone infusion. Additional history obtained via discussion with orthopedics provider. I have reviewed patient's labs, imaging, and documentation. Discussed plan with patient and case management today. Code: Full, surrogate is annmarie giulia, family Dispo: inpatient/ ICU, probable SNF vs home with home health. will need 2 weeks IV antibiotics after last negative culture (01/15) I spent 30 minutes providing critical care management this patient. This excludes time spent in performing separately billed procedures.
--- NOTE | 2023-01-16 16:10 | DI.US.S_ITS ---
PROCEDURE: US PERIPH VENOUS LOW EXTREM RT INDICATIONS: EDEMA, CELLULITIS TECHNIQUE: Real-time imaging, as well as color and pulse Doppler interrogation, were performed of the lower extremity deep veins from the inguinal ligament to the popliteal fossa, with documentation of the visualized calf veins. COMPARISON: None. FINDINGS: The common femoral, femoral, popliteal, and the visualized calf veins are normally compressible, and free of intraluminal thrombus. Color and pulse Doppler demonstrate normal phasic intraluminal flow. There is normal augmentation response to distal compression maneuver. A couple of reactive right inguinal lymph nodes. IMPRESSION: No findings of lower extremity deep venous thrombosis. Dictated by: Ricardo Leonard M.D. on 01/16/2023 at 18:48 Approved by: Ricardo Leonard M.D. on 01/16/2023 at 18:48
--- NOTE | 2023-01-16 16:22 | DIET.CONS ---
Addendum entered by Estrellita Nova 01/17/23 18:11: Pt declines ONS Ensure Max due to dislike for milky things. Pt accepts ONS Joni BID and will work with Unit Host for increased protein intake when ordering meals. Pt consuming scrambled eggs and chicken. Original Note: Dietary Consultation Note Admission Date: 01/14/2023 03:50 Assessment: 72 F with PMH of PE, HTN seen for follow up of RLE cellulitis, gram positive bacteremia. Now s/p I&D with orthopedics, CT angio without any obvious PAD. Pt referred to nutrition for wound infection and MNA 9 (malnourished). Pt s/p I&D for infected R toe with possible transfer for vascular surgical support due to PAD. Pt current cigarette smoker. Pts BGs WNL, highest at 139, no hx diabetes. Pt lives independently without local family support. Son flying in from [place] today to help with placement plan half-way. Ht: 182.88 cm Wt: 133 kg BMI: 37.5 Adjusted BW: 88.1kg (82% above IBW) Last BM: 01/15/23 (01/15/23 16:15) MNA: 9 Jacob Score: 15 Diet: 01/16/23 Breakfast Heart Healthy Diet Diet Modifications: low carb consistant 2 cho Sodium Level: 2 gm Sodium Food Texture: Level 7 - Regular Liquid Consistency: Level 0 - Thin Nutrition Percent Meal Consumed 25% 01/16/23 13:54 Labs: RBC 4.03 X10^6/uL (4.0-5.2) 01/16/23 05:41 Hgb 11.9 g/dL (12.0-16.0) L 01/16/23 05:41 Hct 35.9 % (36-46) L 01/16/23 05:41 Creatinine 0.78 mg/dL (0.52-1.04) 01/16/23 05:41 Lactate 0.8 mmol/L (0.7-2.1) 01/14/23 00:50 Nutrition Diagnosis: inadequate nutrient intake to support wound healing (protein, vitamin C, zinc) r/t difficulty managing self care and chronic conditions aeb pt admitted with R toe infection requiring I&D, MNA 9 on admission, pt with hx PAD without sensation in toe, pt lives independently without local family support. Interventions: 1. Due to pts low appetite, recc ONS Ensure Max bid in addition to Joni bid to support wound healing with STENCILING MACHINE TENDER for Vitamin C, Zinc and other nutrients to support healing as well as 92g PRO providing 87% protein needs in addition to meal trays. 2. Recc assistance at home for grocery shopping and help with meal prep. EER: 2,000kcals (25kcal/kg ABW), 106g PRO (1.2g/kg ABW) Monitoring/Evaluations: ONS tolerance, PO intake Electronically Signed by: Estrellita Nova 01/16/23 16:22 Clinical Dietitian [address] [id number]
[2023-01-16] MEDS: LACTATED RINGERS 1,000 ML 50 ML IV (17:09)
[2023-01-16] MEDS: WARFARIN 5 MG TABLET PO (17:52)
[2023-01-16] MEDS: WARFARIN 1 MG TABLET PO (17:52)
--- NOTE | 2023-01-16 18:08 | PC.NURSE ---
Updated Dr Anguiano on pt HR 145 AFIB RVR, no new orders at this time, will continue to monitor
[2023-01-16] MEDS: METOPROLOL ER 50 MG TABLET PO (18:54)
[2023-01-16] MEDS: METOPROLOL IR 50 MG TABLET 150 MG PO (21:19)
[2023-01-16] MEDS: SERTRALINE 50 MG TABLET 100 MG PO (21:21)
[2023-01-16] MEDS: DILTIAZEM 125 MG/125 ML PIGGYBACK IV (21:22)
[2023-01-16] MEDS: ACETAMINOPHEN 325 MG TABLET 650 MG PO (21:24)
[2023-01-16] MEDS: BACLOFEN 10 MG TABLET 40 MG PO (21:36)
[2023-01-17] VITALS (51 sets, daily range): BP systolic 83–149; BP diastolic 53–92; PULSE 81–108; RESP 12–41; TEMP 36.4–37.2; O2SAT 90–96
[2023-01-17] MEDS: OXYCODONE IR 10 MG TABLET PO ×5 (00:48→20:42)
--- NOTE | 2023-01-17 04:19 | P.EN_ITS ---
Event Note Event Note (Rapid Response, Code, or fall): AFIB RVR overnight 150s. On Amiodarone gtt. Started Diltiazem gtt overnight with good response. HR now 90s and the patient is breathing much better. No longer diaphoretic. D/W staff nurse icu resource team.
[2023-01-17] MEDS: PANTOPRAZOLE DR 20 MG TABLET PO (05:55)
[2023-01-17] MEDS: ACETAMINOPHEN 325 MG TABLET 650 MG PO (05:55)
[2023-01-17 06:20] LABS: INR 2.4 (0.9-1.3); Prothrombin Time 27.8 SECONDS (10.1-12.7)
--- NOTE | 2023-01-17 06:22 | DI.ECHO.S_ITS ---
[facility]---------+ [facility] +---------+ : : [address] : : : : [id number] : : : : Phone: [phone]---------+ Echocardiogram Report + + :Name: GANESH MCCURDY Study Date: 01/17/2023 Height: 72 in : :[facility] ReadingLocation: Weight: 293 lb : : Gender: Female BSA: 2.5 m2 : :: 1950 Age: 72 yrs BP: 131/62 mmHg: :Reason For Study: ATRIAL FIBRILLATION : :Ordering Physician: BHARATI BENTON : :ANDREI Johnson Performed By: Princess Payne : :Referring: BHARATI BENTON D.O. : + + Interpretation Summary The study quality was technically difficult. The ejection fraction is estimated to be 60-65%. Diastolic function could not be accurately assessed due to atrial fibrillation. The left atrium appears dilated. The right ventricle grossly appears normal in size with probable normal systolic function. No obvious valvular abnormalities. Pulmonary artery pressures cannot be estimated because of the lack of a measurable TR jet velocity. Procedure: A two-dimensional transthoracic echocardiogram with color flow and Doppler was performed. The study quality was technically difficult. A contrast injection of Definity was performed to improve assessment of LV function. There is no prior echocardiogram noted for this patient. The patient was in atrial fibrillation with heart rates between 77-102 bpm during the exam. Left Ventricle: The left ventricle is normal in size and wall thickness. The ejection fraction is estimated to be 60-65%. Diastolic function could not be accurately assessed due to atrial fibrillation. Right Ventricle: The right ventricle grossly appears normal in size with probable normal systolic function. Atria: The left atrium appears dilated. The right atrium grossly appears normal in size. There is no Doppler evidence for an interatrial shunt. Mitral Valve: There is moderate mitral annular calcification. The mitral valve leaflets are mildly calcified. There is no mitral regurgitation noted. Aortic Valve: The aortic valve is not well visualized. The aortic valve opens well. There is no aortic valve stenosis. No aortic regurgitation is present. Tricuspid Valve: The tricuspid valve is not well visualized. Pulmonary artery pressures cannot be estimated because of the lack of a measurable TR jet velocity. Pulmonic Valve: The pulmonic valve is not well visualized. Great Vessels: The aortic root is normal size. The dimensions of the ascending aorta are normal. The IVC is of normal diameter and collapses greater than 50% with a sniff. This suggests a low right atrial pressure of 3 mm Hg. Pericardium/ Pleura There is no pericardial effusion. There is no pleural effusion. MMode/2D Measurements & Calculations LVIDd: 5.2 cm LVOT diam: 2.1 cm LVIDs: 3.4 cm Ao root diam: 3.4 cm FS: 35.0 % asc Aorta Diam: 2.9 cm EPSS: 0.38 cm Ao Arch Diam (Prox Trans): 3.2 cm IVSd: 1.0 cm LVPWd: 1.0 cm LV busby. diameter/BSA (cm/m^2): 2.1 LV sys. diameter/BSA (cm/m^2): 1.4 LA A4 area: 24.0 cm2 IVC diam: 1.7 cm LA length (vol): 6.1 cm Doppler Measurements & Calculations Ao V2 max: 154.0 cm/sec LVOT Max Chidi: 88.6 cm/sec Ao V2 mean: 104.4 cm/sec LV V1 max P.1 mmHg Ao max P.5 mmHg LV V1 VTI: 16.1 cm Ao mean P.0 mmHg CRISTAL(I,D): 2.3 cm2 Ao V2 VTI: 23.7 cm CRISTAL(V,D): 2.0 cm2 sev ratio: 0.68 CRISTAL indexed to BSA (cm^2/m^2): 0.94 MV E max chidi: 97.8 cm/sec PA V2 max: 96.1 cm/sec MV A max chidi: 1.8 cm/sec PA V2 mean: 68.1 cm/sec MV E/A: 53.0 PA mean P.0 mmHg Med Peak E' Chidi: 8.8 cm/sec PA pr(Accel): 24.2 mmHg E/E' med: 11.2 Lat Peak E' Chidi: 9.2 cm/sec E/E' lat: 10.7 E/e' average: 10.9 MV dec time: 0.21 sec SV(LVOT): 55.6 ml Reading Physician:09:43 AM
[2023-01-17] MEDS: cefTRIAXone 2,000 MG in SODIUM CHLORIDE 0.9% 100 ML 25 MG IV (09:47)
[2023-01-17] MEDS: lisinopriL 20 MG TABLET 40 MG PO (09:48)
[2023-01-17] MEDS: METOPROLOL IR 50 MG TABLET 150 MG PO ×2 (09:48→20:09)
[2023-01-17] MEDS: dilTIAZem SR 60 MG PO ×3 (09:49→20:09)
[2023-01-17] MEDS: PHENYTOIN ER 100 MG CAPSULE 200 MG PO ×2 (09:49→20:10)
[2023-01-17] MEDS: GABAPENTIN 100 MG CAPSULE PO ×3 (09:49→20:09)
[2023-01-17] MEDS: DOCUSATE 100 MG CAPSULE PO ×2 (09:49→20:09)
[2023-01-17] MEDS: DIGOXIN 500 MCG/2 ML AMPUL 250 MCG IV ×3 (09:56→22:27)
[2023-01-17] MEDS: AMIODARONE 360 MG/200 ML PIGGYBACK 16.7 MG IV ×2 (10:02→21:35)
[2023-01-17] MEDS: DILTIAZEM 125 MG/125 ML PIGGYBACK IV (13:18)
--- NOTE | 2023-01-17 14:03 | PT.IPTN ---
Current Diagnoses Nicotine dependence, unspecified, uncomplicated (01/14/23) Depression, unspecified (01/14/23) Polyneuropathy, unspecified (01/14/23) Essential (primary) hypertension (01/14/23) Other pulmonary embolism without acute cor pulmonale (01/14/23) Gastro-esophageal reflux disease without esophagitis (01/14/23) Cutaneous abscess of right foot (01/14/23) Cellulitis of right lower limb (01/14/23) Surgery Performed Operation Date: 01/15/23 16:30 Actual Procedures p Incision and Drainage great toe(Right) - Herberth Garcia MD Physical Therapy Treatment Note M2 PT-IP Current Condition Start: 01/16/23 16:22 Freq: NEEDED Status: Active Protocol: Document 01/16/23 14:10 AB (Rec: 01/16/23 16:36 AB [id number]) Physical Therapy Current Condition Current Condition Evaluation Date 01/16/23 Treatment Diagnosis R great toe infection s/p I&D; difficulty in walking Onset Date 01/14/23 M3 PT-IP Subjective Start: 01/16/23 16:22 Freq: NEEDED Status: Active Protocol: Document 01/17/23 13:31 MB (Rec: 01/17/23 14:03 MB [id number]) Subjective Physical Therapy Visit Type Type Treatment Note Visit Start Time 13:31 Visit Stop Time 13:54 Total Visit Minutes 23 Number of APPLIQUER ZIGZAG Visits 0 Physical Therapy Visit Comments Patient Comments Truthfully? Shitty. When PT asks pt how she is doing today . Therapy Pain Assessment Pain When Pain Assessed At Rest Pain Present Pain Present Denied Pain M4 PT-IP Mobility and Gait Start: 01/16/23 16:22 Freq: NEEDED Status: Active Protocol: Document 01/17/23 13:31 MB (Rec: 01/17/23 14:03 MB [id number]) PT-Bed Mobility Assessment Scooting Scooting Up and Down in Bed Minimal Assistance PT-Transfer Assessment Comments Mobility Comments Pt performs scooting up in bed with PT managing bed controls to flatten it and pt using the lower rails to push through her arms. Cues to bend left leg and to push up through left heel and not forefoot and PT helps to block the leg. It takes several tries and several rest breaks to get to HOB. M5 PT-IP Objective Assessments Start: 01/16/23 16:22 Freq: NEEDED Status: Active Protocol: Document 01/16/23 14:10 AB (Rec: 01/16/23 16:36 AB [id number]) Orientation Orientation/Cognition Level of Alertness Alert Orientation Age Safety Awareness Decreased Safety Awareness Gross Range of Motion Lower Extremity ROM Assessment Within Functional Limits Strength Lower Extremity Strength Assessment Within Functional Limits Sensation Assessment Sensation Gross Sensation Right LE Impaired,Left LE Impaired Sensation Description Numbness Comments Sensation Comments has chronic neuropathy on BLE Other Assessments Other Other Assessments pt has L great toe pad wound M6 PT-IP Treatment Start: 01/16/23 16:22 Freq: NEEDED Status: Active Protocol: Document 01/17/23 13:31 MB (Rec: 01/17/23 14:03 MB [id number]) Physical Therapy Treatment Other Treatments Other Treatment Performed Pt performs the following exercises in supine and with little assistance to make sure she does not slide heels too much on the mattress: 20 reps APs, 10 reps GS and QS, 10 reps heel slides (PT guards heels/unweights them) and 10 reps hip abduction and adduction (PT guards heels) M7 PT-IP Assessment and Plan Start: 01/16/23 16:22 Freq: NEEDED Status: Active Protocol: Document 01/17/23 13:31 MB (Rec: 01/17/23 14:03 MB [id number]) PT Summary Assessment and Plan Potential Rehabilitation Potential Fair Status of Condition at Evaluation Evolving Summary Impairments Pain,ROM,Strength,Balance, Coordination,Sensation,Tone, Cognition,Bed Mobility, Transfers,Gait,Activity Tolerance Assessment Summary Pt has quarter shaped open ulcer on left metatarsal head that is not dressed and her foot is pressing against the foot of bed upon arrival. This foot really needs to have a dressing and likely post-op/ surgical shoe before any kind of WB on. Preferably, she should not be WB on it either. It is especially worrisome because she is NWB on the right foot and so her left foot would take all of her weight for any transferring or gait attempts. It is likely safest to work on SB transfers with the pt until left foot wound is managed better. Goals Bed Mobility Goal Minimal Assistance Transfer Goal Moderate Assistance,Front Wheeled Walker Gait Goal Moderate Assistance,Front Wheel Walker Gait Distance 25 Other Goals improve bed mobility , transfers CGA using FWW, ambulation min A using FWW 30 ft Days to Meet Goals 10 Frequency of Treatment Frequency Of Treatment Once a Day Treatment Plan Physical Therapy Treatment Plan Bed Mobility Training,Transfer Training,Gait Training, Therapeutic Exercise,Balance Retraining,Post Op Education, Discharge Planning,Hot or Cold Pack,Neuromuscular Re-ed, Coordination Retraining,Manual Therapy Weight Bearing Status Weight Bearing Status Non-Weight Bearing Allowed Weight Bearing Amount (enter % RLE NWB or #) (%) Recommendations To Nursing Amount of Assist Needed Mechanical Lift
--- NOTE | 2023-01-17 15:04 | CM.DPNOTE ---
Addendum entered by Caren Sanders, AYSHA 01/18/23 15:19: ADD: [facility] accepts for admission as early as tomorrow. Auth from [employer] and [facility] agreement secured. PASRR completed. Updated son Francesco and patient, both agreeable to plan. [place] leaves for [place] early tomorrow AM JAE Original Note: DCP Note Reviewed DCP with patient. Patient requires at least 2 weeks of IV Ceftriaxone and therapies recommending SNF. Patient tells this RADIOLOGIC TECHNOLOGIST CHIEF she cannot discharge home safely and gives permission to begin SNF search, patient has no stated SNF preference. SNF referrals sent to [facility], [facility], [facility], [facility] and [facility]. [facility] [place] dos not work with managed MCR plans typically [facility] not in contract with [employer] unless all other SNFs decline [facility] will not take [employer] Sheryl at [facility] considering - needs to know what patient's plan is upon discharge from the SNF, in addition, what is the Orthopedic follow up? Healing of that toe may be lengthy, dressing changes, boot, weight bearing status etc (?) Date of medical discharge unknown at this time. Sheryl at [facility] has not started insurance auth, still reviewing CM team following closely for coordination of DCP JW
[2023-01-17] MEDS: WARFARIN 5 MG TABLET 2.5 MG PO (17:25)
--- NOTE | 2023-01-17 17:48 | PM.PN.1 ---
Subjective Subjective Interval history: 72-year-old female with peripheral neuropathy, peripheral artery disease, prior pulmonary embolus , GERD, depression, tobacco dependence, hypertension who was admitted with a one-week history of increasing swelling and drainage from the right great toe resulting in cellulitis. She underwent irrigation and debridement of the right great toe on January 15. Thus far, group B strep and Proteus are growing from the wound cultures. She developed AFib with RVR on January 16, for which she was placed on Oral diltiazem, amiodarone drip, and 100 mg b.i.d. metoprolol..s She continued to have heart rates in the 150s overnight and she was placed on a diltiazem drip as well. This morning, she complains of being very fatigued. She denies any chest pain or shortness a breath. Her son is at bedside. RN notes that has been difficult to maintain rate control. Exam Vital Signs (past 8 hours): - 01/17/23 09:56 01/17/23 10:01 01/17/23 10:00 Pulse Rate 101 H Respiratory Rate Blood Pressure 128/70 141/70 H Pulse Oximetry 96 Oxygen Delivery Method Nasal Cannula Oxygen Flow Rate 3 01/17/23 10:00 01/17/23 10:30 01/17/23 11:00 Pulse Rate 100 H 102 H Respiratory Rate 19 26 H Blood Pressure 143/72 H Pulse Oximetry 96 94 Oxygen Delivery Method Oxygen Flow Rate 01/17/23 11:00 01/17/23 11:30 01/17/23 12:00 Pulse Rate 95 H 104 H Respiratory Rate 27 H 27 H Blood Pressure 132/68 Pulse Oximetry 95 95 Oxygen Delivery Method Oxygen Flow Rate 01/17/23 12:00 01/17/23 12:30 01/17/23 13:00 Pulse Rate 84 81 87 Respiratory Rate 15 26 H 21 Blood Pressure Pulse Oximetry 94 95 94 Oxygen Delivery Method Oxygen Flow Rate 01/17/23 12:00 01/17/23 13:01 01/17/23 13:01 Pulse Rate 86 Respiratory Rate 20 Blood Pressure 139/67 Pulse Oximetry 94 Oxygen Delivery Method Nasal Cannula Oxygen Flow Rate 01/17/23 13:30 01/17/23 14:00 01/17/23 14:00 Pulse Rate 83 85 Respiratory Rate 23 19 Blood Pressure 145/87 H Pulse Oximetry 95 93 Oxygen Delivery Method Oxygen Flow Rate 01/17/23 14:30 01/17/23 15:00 01/17/23 15:00 Pulse Rate 92 H 90 Respiratory Rate 31 H 22 Blood Pressure 137/73 Pulse Oximetry 94 94 Oxygen Delivery Method Oxygen Flow Rate 01/17/23 15:30 01/17/23 15:56 01/17/23 16:00 Pulse Rate 91 H 87 Respiratory Rate 19 Blood Pressure 137/73 139/76 Pulse Oximetry 95 Oxygen Delivery Method Oxygen Flow Rate 01/17/23 16:00 01/17/23 16:00 01/17/23 16:30 Pulse Rate 97 H 94 H Respiratory Rate 20 22 Blood Pressure Pulse Oximetry 94 93 Oxygen Delivery Method Nasal Cannula Oxygen Flow Rate 01/17/23 17:00 01/17/23 17:00 Pulse Rate 92 H Respiratory Rate 35 H Blood Pressure 133/69 Pulse Oximetry 94 Oxygen Delivery Method Oxygen Flow Rate Fraction of Inspired Oxygen 28 SaO2/FiO2 Ratio 379 Oxygen Delivery Method Nasal Cannula Oxygen Flow Rate 3 Const Other: GEN: ill-appearing elderly female, fatigued, oriented x3 HEENT:NC, Face symmetric CHEST: Respiratory excursions symmetric, scattered anterior wheezes CV: irregularly irregular,, no M/R/G ABD: Soft, obese,NT/ND, BT present in all 4 quadrants, they habitus limits exam EXTR: warm, well perfused, chronic venous stasis changes noted come noted to the ball of the left great toe, right foot wound was not visualized due to postop dressing SKIN: warm and dry, no rash NEURO: oriented x 3, nonfocal Objective Labs 01/16/23 05:41 01/16/23 05:41 Labs: Laboratory Results - last 24 hr 01/17/23 06:00 PT 27.8 H D INR 2.4 H PFSH Medical History Smoker Social History household members: none Smoking Status: Current every day smoker alcohol intake: never Assessment & Plan Assessment & Plan narrative: 1. AFib with RVR rate controlled remains difficult. Echocardiogram is pending. Will add digoxin today to try and obtain better rate control. At the time I saw her her heart rate bounced between the 80s and low 100s. Continue amiodarone and diltiazem infusions. If the rate control remains challenging and she continues to require double infusions, would consider transferring to a higher level of care for Cardiology consultation. 2. Polymicrobial right great toe abscess /cellulitis continue Rocephin. I have placed wound care consultation for the right great toe wound as well as the left foot wound. leukocytosis improving with white count down to 16.3 today 3. Pulmonary embolism patient is on warfarin with pharmacy managing. Given the AFib and PE, would consider transitioning to Eliquis anticoagulation. Would need to determine if her insurance would cover this 1st. 4. Peripheral neuropathy chronic, stable 5. GERD continue PPI 6. Tobacco dependence nicotine patch as needed. Code status full prophylaxis therapeutic on warfarin disposition intensive care unit
[2023-01-17] MEDS: SERTRALINE 50 MG TABLET 100 MG PO (20:15)
[2023-01-17] MEDS: MAGNESIUM HYDROXIDE 30 ML UDC PO (20:15)
[2023-01-17] MEDS: BACLOFEN 10 MG TABLET 40 MG PO (20:15)
[2023-01-17] MEDS: ALBUTEROL 2.5 MG/3 ML NEB (ADULT) INH (21:19)
[2023-01-18] VITALS (27 sets, daily range): BP systolic 100–203; BP diastolic 57–103; PULSE 78–111; RESP 17–28; TEMP 35.6–35.9; O2SAT 90–95; BMI 39.7
[2023-01-18] MEDS: DIGOXIN 500 MCG/2 ML AMPUL 250 MCG IV ×2 (03:43→10:41)
[2023-01-18] MEDS: OXYCODONE IR 10 MG TABLET PO ×4 (04:21→20:25)
[2023-01-18 04:51] LABS: Prothrombin Time 34.5 SECONDS (10.1-12.7)
[2023-01-18 04:56] LABS: HEMOLYSIS 21 (0-50); Magnesium 1.7 mg/dL (1.6-2.3); Potassium 4.5 mmol/L (3.4-5.1)
[2023-01-18] MEDS: PANTOPRAZOLE DR 20 MG TABLET PO (06:09)
--- NOTE | 2023-01-18 08:17 | DI.RAD.S_ITS ---
PROCEDURE: XR CHEST 1V INDICATIONS: hypoxia TECHNIQUE: One view of the chest was acquired. COMPARISON: [facility], , CHEST 1 VIEW, 06/16/2010, 11:33. FINDINGS: Surgical changes and devices: None. Lungs and pleura: A round ill-defined density in the right upper lobe/apex could be due to superimposed bone versus an infiltrate. No other focal consolidation. Subtle diffuse interstitial changes could be due to under penetration. Mediastinum: Mediastinal contours appear normal. Heart size is enlarged. Bones and chest wall: No suspicious bony lesions. Overlying soft tissues appear unremarkable. IMPRESSION: 1. Possible a focal infiltrate in the right upper lobe versus superimposed bone. Recommend PA and lateral view of the chest. 2. Cardiomegaly. Dictated by: Jin Peters M.D. on 01/18/2023 at 8:53 Approved by: Jin Peters M.D. on 01/18/2023 at 8:56
[2023-01-18 08:27] LABS: Add Manual Diff / Slide Review NO; Basophils Absolute Auto 200 /uL (0-100); Basophils Percent Auto 1.1 % (0-2); Eosinophils Absolute Auto 0 /uL (0-450); Eosinophils Percent Auto 0.1 % (2-4); Hematocrit 35.9 % (36-46); Hemoglobin 11.9 g/dL (12.0-16.0); Lymphocytes Absolute Auto 1700 /uL (1100-4500); Lymphocytes Percent Auto 9.7 % (25-40); Mean Corpuscular HGB Conc 33.2 % (30-36); Mean Corpuscular Hemoglobin 29.7 PG (26-34); Mean Corpuscular Volume 89.4 fL (80-100); Monocytes Absolute Auto 900 /uL (0-900); Monocytes Percent Auto 5.5 % (3-14); Neutrophils Absolute Auto 14200 /uL (1500-7000); Neutrophils Percent Auto 83.6 % (50-75); Platelet Count 471 X10^3/uL (150-400); Red Blood Cell Count 4.02 X10^6/uL (4.0-5.2); Red Cell Distribution Width 14.4 % (11.6-14.8)
[2023-01-18] MEDS: GABAPENTIN 100 MG CAPSULE PO ×3 (08:29→20:23)
[2023-01-18] MEDS: DOCUSATE 100 MG CAPSULE PO (08:29)
[2023-01-18] MEDS: lisinopriL 20 MG TABLET 40 MG PO (08:29)
[2023-01-18] MEDS: PHENYTOIN ER 100 MG CAPSULE 200 MG PO ×2 (08:29→20:25)
[2023-01-18] MEDS: METOPROLOL IR 50 MG TABLET 150 MG PO ×2 (08:29→20:25)
[2023-01-18] MEDS: dilTIAZem SR 60 MG PO (08:29)
[2023-01-18 08:31] LABS: BUN Creatinine Ratio 42.1 (6-22); Blood Urea Nitrogen 24 mg/dL (7-17); Calcium 8.3 mg/dL (8.4-10.2); Carbon Dioxide 25 mmol/L (22-32); Chloride 100 mmol/L (98-107); Estimated Glomerular Filt Rate > 60 mL/min (>60); Glucose 104 mg/dL (80-110); HEMOLYSIS 21 (0-50); Potassium 5.1 mmol/L (3.4-5.1); Sodium 132 mmol/L (137-145)
[2023-01-18] MEDS: MAGNESIUM CHLORIDE 64 MG TABLET 128 MG PO (10:30)
[2023-01-18] MEDS: cefTRIAXone 2,000 MG in SODIUM CHLORIDE 0.9% 100 ML 25 MG IV (10:39)
--- NOTE | 2023-01-18 14:13 | PT-IP ANOTE ---
Attempted to see pt for her PT session today, nursing reported pt was on bedpan and would not be available for ~15 minutes. Will need to check back in with pt at a later time.
--- NOTE | 2023-01-18 15:49 | P.PN_ITS ---
Subjective Subjective Interval history: 72 F with PMH of PE, HTN seen for follow up of RLE cellulitis, gram positive bacteremia. Now s/p I&D with orthopedics, CT angio without any obvious PAD. She continues to have pain but her R leg is improving slowly. Have had difficulties with RVR, but improved today now off of amiodarone infusion and dilt infusion. TTE showed normal EF. She got IV loaded with digoxin but this will be held moving forward. Exam Vital Signs (past 8 hours): - 01/18/23 08:00 01/18/23 08:00 01/18/23 09:00 Pulse Rate 97 H Respiratory Rate 25 H Blood Pressure 161/81 H 159/82 H Pulse Oximetry 91 Oxygen Delivery Method 01/18/23 09:00 01/18/23 10:41 01/18/23 10:00 Pulse Rate 111 H 87 Respiratory Rate 28 H Blood Pressure 134/87 134/87 Pulse Oximetry 92 Oxygen Delivery Method 01/18/23 10:00 01/18/23 11:00 01/18/23 11:00 Pulse Rate 87 86 Respiratory Rate 19 19 Blood Pressure 150/92 H Pulse Oximetry 91 94 Oxygen Delivery Method 01/18/23 09:00 01/18/23 12:00 01/18/23 12:00 Pulse Rate 90 Respiratory Rate 20 Blood Pressure 162/81 H Pulse Oximetry 94 Oxygen Delivery Method Nasal Cannula 01/18/23 13:08 01/18/23 13:00 01/18/23 13:00 Pulse Rate 97 H 97 H Respiratory Rate 26 H Blood Pressure 150/72 H 203/93 H Pulse Oximetry 92 Oxygen Delivery Method 01/18/23 13:02 01/18/23 13:02 01/18/23 13:06 Pulse Rate 95 H 97 H Respiratory Rate 22 23 Blood Pressure 188/85 H Pulse Oximetry 93 91 Oxygen Delivery Method 01/18/23 13:06 01/18/23 14:00 01/18/23 13:00 Pulse Rate 100 H Respiratory Rate 21 Blood Pressure 150/72 H Pulse Oximetry 92 Oxygen Delivery Method Nasal Cannula 01/18/23 15:00 Pulse Rate 105 H Respiratory Rate 22 Blood Pressure Pulse Oximetry 90 L Oxygen Delivery Method Fraction of Inspired Oxygen 28 SaO2/FiO2 Ratio 379 Oxygen Delivery Method Nasal Cannula Oxygen Flow Rate 4 Const Other: GEN: ill-appearing elderly female, fatigued, oriented x3 HEENT:NC, Face symmetric CHEST: Respiratory excursions symmetric, scattered anterior wheezes CV: irregularly irregular,, no M/R/G ABD: Soft, obese,NT/ND, BT present in all 4 quadrants, they habitus limits exam EXTR: warm, well perfused, chronic venous stasis changes noted come noted to the ball of the left great toe, right foot wound was not visualized due to postop dressing SKIN: warm and dry, no rash NEURO: oriented x 3, nonfocal Objective Labs 01/18/23 04:20 01/18/23 04:20 Labs: Laboratory Results - last 24 hr 01/18/23 01/18/23 01/18/23 04:20 04:20 04:20 WBC RBC Hgb Hct MCV MCH MCHC RDW Plt Count Neut % (Auto) Lymph % (Auto) [place] % (Auto) Eos % (Auto) Baso % (Auto) Neut # (Auto) Lymph # (Auto) [place] # (Auto) Eos # (Auto) Baso # (Auto) PT 34.5 H D INR 3.0 H Sodium 132 L Potassium 4.5 5.1 Chloride 100 Carbon Dioxide 25 BUN 24 H Creatinine 0.57 Estimated GFR > 60 BUN/Creatinine Ratio 42.1 H Glucose 104 Calcium 8.3 L Magnesium 1.7 01/18/23 04:20 WBC 17.0 H RBC 4.02 Hgb 11.9 L Hct 35.9 L MCV 89.4 MCH 29.7 MCHC 33.2 RDW 14.4 Plt Count 471 H Neut % (Auto) 83.6 H Lymph % (Auto) 9.7 L [place] % (Auto) 5.5 Eos % (Auto) 0.1 L Baso % (Auto) 1.1 Neut # (Auto) 74509 H Lymph # (Auto) 1700 [place] # (Auto) 900 Eos # (Auto) 0 Baso # (Auto) 200 H PT INR Sodium Potassium Chloride Carbon Dioxide BUN Creatinine Estimated GFR BUN/Creatinine Ratio Glucose Calcium Magnesium PFSH Medical History Smoker Social History household members: none Smoking Status: Current every day smoker alcohol intake: never Assessment & Plan Assessment & Plan narrative: 1. New diagnosis afib with RVR. - difficult to control - TTE with normal EF, no wall motion abnormalities. - unfortunately with phenytoin interactions, coumadin remains the best anticoagulant for her. Continue dosing per pharmacy. - required oral metoprolol increased to 150 mg BID, diltiazem PO with IV infusion, digoxin loaded IV and amiodarone IV loading. Rates still 90-100 but improved. With normal EF, try to stop digoxin, continue metoprolol, oral dilt (120 mg BID), and 200 mg amiodarone BID. (2) Abscess of great toe, right with RLE cellulitis and Strep bacteremia, present on admission. - Seen by Dr. Garcia and orthopedics team, now s/p I&D, non weight bearing per orders. - CT angio with runoff without any obvious PAD of b/l LE. - INR supratherapeutic on admission, taken off warfarin initially, now restarted but INR 3 today. Continue dosing per pharmacy. - Meropenem initially for BC positive for G+ cocci, Gram negatives on wound culture. Wound culture with group G strep as well. Narrowed to Ceftriaxone 01/16. Will need 2 weeks of IV ceftriaxone for bacteremia. Repeat Blood culture 01/15 negative. (3) HTN (hypertension): Clonidine, metoprolol, Lisinopril - grossly uncontrolled on admission, but also with pain. Has been a bit better today. (4) Pulmonary embolism: -now on coumadin per pharmacy further discussed below (5) Peripheral neuropathy: ? - continue pain control (6) GERD (gastroesophageal reflux disease): PPI (7) Depression: Zoloft (8) Smoker: nicotine replacement prn, albuterol prn 9 - obesity The patient is at much higher risk for medical and surgical complications because of their obesity. This increases the difficulty and complexity of medical and surgical interventions and increases the chances of poor outcomes such as morbidity and mortality. Additional history obtained via discussion with hospital staff. I have reviewed patient's labs, imaging, and documentation. Discussed plan with patient and case management today. Code: Full, surrogate is family katelyn Dispo: downgrade from ICU to floor today, off amiodarone and diltiazem infusions today. I spent 30 minutes providing critical care management this patient. This excludes time spent in performing separately billed procedures.
--- NOTE | 2023-01-18 15:53 | PT.IPTN ---
Current Diagnoses Nicotine dependence, unspecified, uncomplicated (01/14/23) Depression, unspecified (01/14/23) Polyneuropathy, unspecified (01/14/23) Essential (primary) hypertension (01/14/23) Other pulmonary embolism without acute cor pulmonale (01/14/23) Gastro-esophageal reflux disease without esophagitis (01/14/23) Cutaneous abscess of right foot (01/14/23) Cellulitis of right lower limb (01/14/23) Surgery Performed Operation Date: 01/15/23 16:30 Actual Procedures p Incision and Drainage great toe(Right) - Herberth Garcia MD Physical Therapy Treatment Note M2 PT-IP Current Condition Start: 01/16/23 16:22 Freq: NEEDED Status: Active Protocol: Document 01/16/23 14:10 AB (Rec: 01/16/23 16:36 AB [id number]) Physical Therapy Current Condition Current Condition Evaluation Date 01/16/23 Treatment Diagnosis R great toe infection s/p I&D; difficulty in walking Onset Date 01/14/23 M3 PT-IP Subjective Start: 01/16/23 16:22 Freq: NEEDED Status: Active Protocol: Document 01/18/23 15:45 ED (Rec: 01/18/23 15:53 ED [id number]) Subjective Physical Therapy Visit Type Type Treatment Note Visit Start Time 15:20 Visit Stop Time 15:45 Total Visit Minutes 25 Number of STAFF PSYCHOLOGIST Visits 0 Physical Therapy Visit Comments Patient Comments Pt lying in bed upon PT arrival. She had used [facility]SC c/ nursing prior. States that she is feeling terrible but will try do PT. Therapy Pain Assessment Pain When Pain Assessed At Rest Pain Present Pain Present Denied Pain M4 PT-IP Mobility and Gait Start: 01/16/23 16:22 Freq: NEEDED Status: Active Protocol: Document 01/18/23 15:45 ED (Rec: 01/18/23 15:53 ED [id number]) PT-Bed Mobility Assessment Supine to Sit Supine to Sit Minimal Assistance,Head of Bed Elevated,Bedrails Sit to Supine Sit to Supine Minimal Assistance,Head of Bed Elevated,Bedrails Scooting Scooting Up and Down in Bed Minimal Assistance PT-Transfer Assessment Comments Mobility Comments Pt able to perform supine > EOB c/ min A for LE management but required bed rails and the HOB to be elevated. Pt required increased time to complete task. Pt sat EOB for ~10' c/ no assistance required to maintain upright posture. O2% remained at 92% throughout . Pt able to perform EOB > supine c/ min A for LE management. M5 PT-IP Objective Assessments Start: 01/16/23 16:22 Freq: NEEDED Status: Active Protocol: Document 01/16/23 14:10 AB (Rec: 01/16/23 16:36 AB [id number]) Orientation Orientation/Cognition Level of Alertness Alert Orientation Age Safety Awareness Decreased Safety Awareness Gross Range of Motion Lower Extremity ROM Assessment Within Functional Limits Strength Lower Extremity Strength Assessment Within Functional Limits Sensation Assessment Sensation Gross Sensation Right LE Impaired,Left LE Impaired Sensation Description Numbness Comments Sensation Comments has chronic neuropathy on BLE Other Assessments Other Other Assessments pt has L great toe pad wound M6 PT-IP Treatment Start: 01/16/23 16:22 Freq: NEEDED Status: Active Protocol: Document 01/17/23 13:31 MB (Rec: 01/17/23 14:03 MB [id number]) Physical Therapy Treatment Other Treatments Other Treatment Performed Pt performs the following exercises in supine and with little assistance to make sure she does not slide heels too much on the mattress: 20 reps APs, 10 reps GS and QS, 10 reps heel slides (PT guards heels/unweights them) and 10 reps hip abduction and adduction (PT guards heels) M7 PT-IP Assessment and Plan Start: 01/16/23 16:22 Freq: NEEDED Status: Active Protocol: Document 01/18/23 15:45 ED (Rec: 01/18/23 15:53 ED [id number]) PT Summary Assessment and Plan Potential Rehabilitation Potential Fair Status of Condition at Evaluation Evolving Summary Impairments Pain,ROM,Strength,Balance, Coordination,Sensation,Tone, Cognition,Bed Mobility, Transfers,Gait,Activity Tolerance Assessment Summary Pt progressing in assistance required for bed mobility but demonstrates decreased overall functional mobility. Pt stated that she is concerned about her ability to use her L LE only when standing b/c she has had knee problems for her L knee before. Goals Bed Mobility Goal Minimal Assistance Transfer Goal Moderate Assistance,Front Wheeled Walker Gait Goal Moderate Assistance,Front Wheel Walker Gait Distance 25 Other Goals improve bed mobility , transfers CGA using FWW, ambulation min A using FWW 30 ft Days to Meet Goals 10 Frequency of Treatment Frequency Of Treatment Once a Day Treatment Plan Physical Therapy Treatment Plan Bed Mobility Training,Transfer Training,Gait Training, Therapeutic Exercise,Balance Retraining,Post Op Education, Discharge Planning,Hot or Cold Pack,Neuromuscular Re-ed, Coordination Retraining,Manual Therapy Weight Bearing Status Weight Bearing Status Non-Weight Bearing Allowed Weight Bearing Amount (enter % RLE NWB or #) (%) Recommendations To Nursing Amount of Assist Needed Mechanical Lift Discharge Recommendations PT Discharge Recommendations SNF Rehab
[2023-01-18] MEDS: AMIODARONE 200 MG TABLET PO (16:35)
[2023-01-18] MEDS: BACLOFEN 10 MG TABLET 40 MG PO (20:23)
[2023-01-18] MEDS: dilTIAZem CD 120 MG CAP PO (20:24)
[2023-01-18] MEDS: SERTRALINE 50 MG TABLET 100 MG PO (20:27)
[2023-01-18] MEDS: ALBUTEROL/IPRATROPIUM 3 ML AMPUL INH (20:39)
[2023-01-19] VITALS (25 sets, daily range): BP systolic 124–206; BP diastolic 58–93; PULSE 69–111; RESP 16–24; TEMP 35.7–36.7; O2SAT 88–97
[2023-01-19 05:26] LABS: INR 2.6 (0.9-1.3); Prothrombin Time 29.8 SECONDS (10.1-12.7)
[2023-01-19 05:30] LABS: Add Manual Diff / Slide Review NO; Basophils Absolute Auto 0 /uL (0-100); Basophils Percent Auto 0.3 % (0-2); Eosinophils Absolute Auto 0 /uL (0-450); Hemoglobin 11.5 g/dL (12.0-16.0); Lymphocytes Absolute Auto 1600 /uL (1100-4500); Lymphocytes Percent Auto 10.3 % (25-40); Mean Corpuscular HGB Conc 33.7 % (30-36); Mean Corpuscular Hemoglobin 29.4 PG (26-34); Mean Corpuscular Volume 87.3 fL (80-100); Monocytes Absolute Auto 1000 /uL (0-900); Monocytes Percent Auto 6.2 % (3-14); Neutrophils Absolute Auto 13000 /uL (1500-7000); Neutrophils Percent Auto 83.2 % (50-75); Platelet Count 357 X10^3/uL (150-400); Red Cell Distribution Width 14.2 % (11.6-14.8); White Blood Cell Count 15.6 X10^3/uL (4.5-11.0)
[2023-01-19 05:34] LABS: BUN Creatinine Ratio 38.9 (6-22); Blood Urea Nitrogen 21 mg/dL (7-17); Calcium 8.7 mg/dL (8.4-10.2); Carbon Dioxide 33 mmol/L (22-32); Chloride 100 mmol/L (98-107); Estimated Glomerular Filt Rate > 60 mL/min (>60); Glucose 112 mg/dL (80-110); HEMOLYSIS 18 (0-50); Magnesium 1.8 mg/dL (1.6-2.3); Potassium 4.3 mmol/L (3.4-5.1); Sodium 135 mmol/L (137-145)
[2023-01-19] MEDS: PANTOPRAZOLE DR 20 MG TABLET PO (05:47)
[2023-01-19] MEDS: OXYCODONE IR 10 MG TABLET PO ×5 (05:47→23:34)
[2023-01-19 05:48] LABS: Phenytoin / Dilantin 4.2 ug/mL (10-20)
[2023-01-19] MEDS: AMIODARONE 200 MG TABLET PO ×2 (08:29→16:58)
[2023-01-19] MEDS: PHENYTOIN ER 100 MG CAPSULE 200 MG PO ×2 (08:29→20:27)
[2023-01-19] MEDS: dilTIAZem CD 120 MG CAP PO ×2 (08:29→20:26)
[2023-01-19] MEDS: METOPROLOL IR 50 MG TABLET 150 MG PO (08:29)
[2023-01-19] MEDS: lisinopriL 20 MG TABLET 40 MG PO (08:30)
[2023-01-19] MEDS: ALBUTEROL/IPRATROPIUM 3 ML AMPUL INH (08:50)
[2023-01-19] MEDS: cefTRIAXone 2,000 MG in SODIUM CHLORIDE 0.9% 100 ML 200 MG IV (09:42)
--- NOTE | 2023-01-19 10:27 | CM.DPNOTE ---
Karolyn requested BLS transport for patient to transport to [facility] on Sunday, 01/20 at noon. I spoke to Minor at Ambulance and told her patient may have mo and is on O2. She confirmed they could transport patient at this date/time. I relayed information to Karolyn. Hilda Carter, JULIANNA Assist.
--- NOTE | 2023-01-19 11:00 | PT.IPTN ---
Current Diagnoses Nicotine dependence, unspecified, uncomplicated (01/14/23) Depression, unspecified (01/14/23) Polyneuropathy, unspecified (01/14/23) Essential (primary) hypertension (01/14/23) Other pulmonary embolism without acute cor pulmonale (01/14/23) Gastro-esophageal reflux disease without esophagitis (01/14/23) Cutaneous abscess of right foot (01/14/23) Cellulitis of right lower limb (01/14/23) Surgery Performed Operation Date: 01/15/23 16:30 Actual Procedures p Incision and Drainage great toe(Right) - Herberth Garcia MD Physical Therapy Treatment Note M2 PT-IP Current Condition Start: 01/16/23 16:22 Freq: NEEDED Status: Active Protocol: Document 01/16/23 14:10 AB (Rec: 01/16/23 16:36 AB [id number]) Physical Therapy Current Condition Current Condition Evaluation Date 01/16/23 Treatment Diagnosis R great toe infection s/p I&D; difficulty in walking Onset Date 01/14/23 M3 PT-IP Subjective Start: 01/16/23 16:22 Freq: NEEDED Status: Active Protocol: Document 01/19/23 12:12 TS (Rec: 01/19/23 12:33 TS [id number]) Subjective Physical Therapy Visit Type Type Treatment Note Visit Start Time 11:00 Visit Stop Time 11:43 Total Visit Minutes 43 Notes PT Rhea assisting Number of EAR MUFF ASSEMBLER Visits 1 Physical Therapy Visit Comments Patient Comments Pt reports not feeling well and she's never going back home, agreeable to PT. M4 PT-IP Mobility and Gait Start: 01/16/23 16:22 Freq: NEEDED Status: Active Protocol: Document 01/19/23 12:12 TS (Rec: 01/19/23 12:33 TS [id number]) PT-Bed Mobility Assessment Supine to Sit Supine to Sit Moderate Assistance,1 Person Assistance,Head of Bed Elevated,Bedrails Sit to Supine Sit to Supine Minimal Assistance,2 Person Assistance,Head of Bed Elevated,Bedrails Scooting Scooting to Edge of Bed Contact Guard Assistance Scooting Up and Down in Bed Contact Guard Assistance PT-Transfer Assessment Comments Mobility Comments Pt found resting in bed on 2. 5L of o2 @93%, dressing placed over LLE ulcer on foot prior to mobility. Supine to sit with HOB elevated ModA with handheld assist for uprighting trunk and LE assistance. Pt slow to scoot to EOB CGA, required cues for BUE support and lifting hips. Pt sat EOB with labored breathing, Spo2 desats to 86-88%, pt recovers after ~30secs. Attempted to use slideboard to get pt to w/ c, nursing came in to apply midline for antibiotics, requested back in supine. Sit to supine Jerzy x2 for LEs and repositioning of trunk, provided cues for coming down on L shoulder. Pt scooted to HOB CGA with labored movement. Pt was left supine in bed with nursing. PT-Balance Assessment Sitting Balance and Reactions Static Sitting Balance Ability Fair Dynamic Sitting Balance Ability Fair M5 PT-IP Objective Assessments Start: 01/16/23 16:22 Freq: NEEDED Status: Active Protocol: Document 01/16/23 14:10 AB (Rec: 01/16/23 16:36 AB [id number]) Orientation Orientation/Cognition Level of Alertness Alert Orientation Age Safety Awareness Decreased Safety Awareness Gross Range of Motion Lower Extremity ROM Assessment Within Functional Limits Strength Lower Extremity Strength Assessment Within Functional Limits Sensation Assessment Sensation Gross Sensation Right LE Impaired,Left LE Impaired Sensation Description Numbness Comments Sensation Comments has chronic neuropathy on BLE Other Assessments Other Other Assessments pt has L great toe pad wound M6 PT-IP Treatment Start: 01/16/23 16:22 Freq: NEEDED Status: Active Protocol: Document 01/17/23 13:31 MB (Rec: 01/17/23 14:03 MB [id number]) Physical Therapy Treatment Other Treatments Other Treatment Performed Pt performs the following exercises in supine and with little assistance to make sure she does not slide heels too much on the mattress: 20 reps APs, 10 reps GS and QS, 10 reps heel slides (PT guards heels/unweights them) and 10 reps hip abduction and adduction (PT guards heels) M7 PT-IP Assessment and Plan Start: 01/16/23 16:22 Freq: NEEDED Status: Active Protocol: Document 01/19/23 12:12 TS (Rec: 01/19/23 12:33 TS [id number]) PT Summary Assessment and Plan Potential Rehabilitation Potential Fair Summary Impairments Pain,ROM,Strength,Balance, Coordination,Sensation,Tone, Cognition,Bed Mobility, Transfers,Gait,Activity Tolerance Progress Towards Goals Slow Progress due to Medical Issues,Slow Progress due to Activity Tolerance Assessment Summary Pt is ModA for supine to sit with handheld assist for uprighting trunk into sitting position. She scooted well to EOB with CGA and cues for BUE support behind her lifting her hips forward. Attempted to have pt use slideboard to transfer to w/c but nursing required back to bed for placement of midline. She is NWB on RLE and has an ulcer on LLE foot making progressing her OOB mobility difficult. Spo2 desats to mid to high 80' s with mobility from 93% on 2. 5L at rest, recovers quickly when cued. PT is recommending SNF rehab to progress functional mobility and activity tolerance. Goals Bed Mobility Goal Minimal Assistance Transfer Goal Moderate Assistance,Front Wheeled Walker Gait Goal Moderate Assistance,Front Wheel Walker Gait Distance 25 Other Goals improve bed mobility , transfers CGA using FWW, ambulation min A using FWW 30 ft Days to Meet Goals 10 Frequency of Treatment Frequency Of Treatment Once a Day Treatment Plan Physical Therapy Treatment Plan Bed Mobility Training,Transfer Training,Gait Training, Therapeutic Exercise,Balance Retraining,Post Op Education, Discharge Planning,Hot or Cold Pack,Neuromuscular Re-ed, Coordination Retraining,Manual Therapy Weight Bearing Status Weight Bearing Status Non-Weight Bearing Allowed Weight Bearing Amount (enter % RLE NWB or #) (%) Recommendations To Nursing Amount of Assist Needed Mechanical Lift Discharge Recommendations PT Discharge Recommendations SNF Rehab Transportation Needs at Discharge Wheelchair/Cabulance,Stretcher /Ambulance
[2023-01-19] MEDS: FUROSEMIDE 40 MG/4 ML VIAL IV (11:32)
--- NOTE | 2023-01-19 11:47 | P.PN_ITS ---
Subjective Subjective Interval history: 72 F with PMH of PE, HTN seen for follow up of RLE cellulitis, gram positive bacteremia. Now s/p I&D with orthopedics, CT angio without any obvious PAD. She continues to have pain but her R leg is improving slowly. Have had difficulties with RVR, but improved today now off of amiodarone infusion and dilt infusion. TTE showed normal EF. She got IV loaded with digoxin but this will be held moving forward. She remains on supplemental oxygen today, will attempt diuresis to see if improvement in hypoxia. Exam Vital Signs (past 8 hours): - 01/19/23 04:00 01/19/23 04:00 01/19/23 08:30 Temperature 96.7 F L Pulse Rate 79 104 H Respiratory Rate 18 Blood Pressure 147/72 H 160/62 H Pulse Oximetry 95 Oxygen Delivery Method Oxygen Flow Rate 3 01/19/23 08:50 01/19/23 06:00 01/19/23 08:00 Temperature 96.7 F L Pulse Rate 104 H 101 H 104 H Respiratory Rate 22 18 23 Blood Pressure Pulse Oximetry 95 93 96 Oxygen Delivery Method Nasal Cannula Oxygen Flow Rate 3 01/19/23 08:01 01/19/23 08:01 01/19/23 08:02 Temperature Pulse Rate 102 H 102 H Respiratory Rate 16 18 Blood Pressure 206/93 H Pulse Oximetry 93 94 Oxygen Delivery Method Oxygen Flow Rate 01/19/23 08:02 01/19/23 07:00 Temperature Pulse Rate Respiratory Rate Blood Pressure 162/82 H Pulse Oximetry Oxygen Delivery Method Nasal Cannula Oxygen Flow Rate Fraction of Inspired Oxygen 28 SaO2/FiO2 Ratio 379 Oxygen Delivery Method Nasal Cannula Oxygen Flow Rate 3 Const Other: GEN: ill-appearing elderly female, fatigued, oriented x3 HEENT:NC, Face symmetric CHEST: Respiratory excursions symmetric, scattered anterior wheezes CV: irregularly irregular,, no M/R/G ABD: Soft, obese,NT/ND, BT present in all 4 quadrants, they habitus limits exam EXTR: warm, well perfused, chronic venous stasis changes noted come noted to the ball of the left great toe with ulceration, right foot wound was not visualized due to postop dressing but R leg remains mildly erythematous but improved SKIN: warm and dry, no rash NEURO: oriented x 3, nonfocal Objective Labs 01/19/23 04:39 01/19/23 04:39 Labs: Laboratory Results - last 24 hr 01/19/23 01/19/23 01/19/23 04:39 04:39 04:39 WBC 15.6 H RBC 3.90 L Hgb 11.5 L Hct 34.0 L MCV 87.3 MCH 29.4 MCHC 33.7 RDW 14.2 Plt Count 357 Neut % (Auto) 83.2 H Lymph % (Auto) 10.3 L [place] % (Auto) 6.2 Eos % (Auto) 0.0 L Baso % (Auto) 0.3 Neut # (Auto) 35892 H Lymph # (Auto) 1600 [place] # (Auto) 1000 H Eos # (Auto) 0 Baso # (Auto) 0 PT 29.8 H INR 2.6 H Sodium Potassium Chloride Carbon Dioxide BUN Creatinine Estimated GFR BUN/Creatinine Ratio Glucose Calcium Magnesium Phenytoin 4.2 L 01/19/23 04:39 WBC RBC Hgb Hct MCV MCH MCHC RDW Plt Count Neut % (Auto) Lymph % (Auto) [place] % (Auto) Eos % (Auto) Baso % (Auto) Neut # (Auto) Lymph # (Auto) [place] # (Auto) Eos # (Auto) Baso # (Auto) PT INR Sodium 135 L Potassium 4.3 Chloride 100 Carbon Dioxide 33 H BUN 21 H Creatinine 0.54 Estimated GFR > 60 BUN/Creatinine Ratio 38.9 H Glucose 112 H Calcium 8.7 Magnesium 1.8 Phenytoin PFSH Medical History Smoker Social History household members: none Smoking Status: Current every day smoker alcohol intake: never Assessment & Plan Assessment & Plan narrative: 1. New diagnosis afib with RVR. - difficult to control but now improving - TTE with normal EF, no wall motion abnormalities. - unfortunately with phenytoin interactions, coumadin remains the best anticoagulant for her. Continue dosing per pharmacy. - required oral metoprolol increased to 150 mg BID, diltiazem PO with IV infusion, digoxin loaded IV and amiodarone IV loading. Rates now to 70s. With normal EF, try to stop digoxin, continue metoprolol and will increase further today to , oral dilt (120 mg BID), and 200 mg amiodarone BID. (2) Abscess of great toe, right with RLE cellulitis and Strep bacteremia, present on admission. - Seen by Dr. Garcia and orthopedics team, now s/p I&D, non weight bearing per orders. - CT angio with runoff without any obvious PAD of b/l LE. - INR supratherapeutic on admission, taken off warfarin initially, now restarted but INR 3 today. Continue dosing per pharmacy. - Meropenem initially for BC positive for G+ cocci, Gram negatives on wound culture. Wound culture with group G strep as well. Narrowed to Ceftriaxone 01/16. Will need 2 weeks of IV ceftriaxone for bacteremia. Repeat Blood culture 01/15 negative. 3. Acute respiratory failure with hypoxia, with acute diastolic heart failure - most probably diastolic heart failure with RVR - start daily diuresis with 40 IV and continue to monitor (4) HTN (hypertension): Clonidine, metoprolol, Lisinopril - grossly uncontrolled on admission, but also with pain. Has been a bit better and increasing rate control agents as noted above (5) Pulmonary embolism: -now on coumadin per pharmacy further discussed above (6) Peripheral neuropathy: ? - continue pain control (7) GERD (gastroesophageal reflux disease): PPI (8) Depression: Zoloft (9) Smoker: nicotine replacement prn, albuterol prn 10 - obesity The patient is at much higher risk for medical and surgical complications be cause of their obesity. This increases the difficulty and complexity of medical and surgical interventions and increases the chances of poor outcomes such as morbidity and mortality. 11. ? seizure disorder - continue phenytoin dosing, level checked and was low at 4.2 but given medication interactions and no seizures will defer to outpatient management. Additional history obtained via discussion with hospital staff. I have reviewed patient's labs, imaging, and documentation. Discussed plan with patient and case management today. Code: Full, surrogate is annmarie platt, family Dispo: inpatient, will plan for SNF for rehab and antibiotics
--- NOTE | 2023-01-19 13:54 | CM.DPNOTE ---
DCP Note Spoke with Kelly at [facility], patient not medically ready to discharge today but it is anticipated patient will be ready tomorrow Kelly requests DC orders today if they are available, if not, fax tomorrow okay as well Updated Kelly that BLS has been scheduled to transport patient tomorrow at 1200 p/u Kelly requests oncoming DC senior buyer planner call her on the admission cell P [phone] Plan: Discharge to [facility] anticipated tomorrow 8..23, BLS scheduled for p/u at 1200, need to fax ROBERT SOLOMON Summary, DC visit report and signed med list with Rx for any schedule II narcotics to [facility]
[2023-01-19] MEDS: WARFARIN 1 MG TABLET 3 MG PO (16:58)
[2023-01-19] MEDS: METOPROLOL IR 50 MG TABLET 200 MG PO (20:27)
[2023-01-19] MEDS: SERTRALINE 50 MG TABLET 100 MG PO (20:27)
[2023-01-19] MEDS: BACLOFEN 10 MG TABLET 40 MG PO (20:27)
[2023-01-19] MEDS: ONDANSETRON 4 MG ODT PO (20:29)
[2023-01-19] MEDS: ACETAMINOPHEN 325 MG TABLET 650 MG PO (20:29)
[2023-01-20] VITALS (21 sets, daily range): BP systolic 134–158; BP diastolic 64–94; PULSE 72–116; RESP 15–32; TEMP 36.1–37; O2SAT 87–95
[2023-01-20 04:50] LABS: Add Manual Diff / Slide Review NO; Basophils Absolute Auto 100 /uL (0-100); Basophils Percent Auto 0.6 % (0-2); Eosinophils Absolute Auto 0 /uL (0-450); Eosinophils Percent Auto 0.1 % (2-4); Hematocrit 33.1 % (36-46); Hemoglobin 10.8 g/dL (12.0-16.0); Lymphocytes Absolute Auto 1600 /uL (1100-4500); Mean Corpuscular HGB Conc 32.7 % (30-36); Mean Corpuscular Hemoglobin 28.8 PG (26-34); Monocytes Absolute Auto 1000 /uL (0-900); Monocytes Percent Auto 6.6 % (3-14); Neutrophils Absolute Auto 11800 /uL (1500-7000); Neutrophils Percent Auto 81.7 % (50-75); Platelet Count 403 X10^3/uL (150-400); Red Blood Cell Count 3.76 X10^6/uL (4.0-5.2); Red Cell Distribution Width 14.1 % (11.6-14.8); White Blood Cell Count 14.4 X10^3/uL (4.5-11.0)
[2023-01-20 04:56] LABS: INR 2.7 (0.9-1.3); Prothrombin Time 31.2 SECONDS (10.1-12.7)
[2023-01-20 05:01] LABS: BUN Creatinine Ratio 33.3 (6-22); Blood Urea Nitrogen 23 mg/dL (7-17); Calcium 8.4 mg/dL (8.4-10.2); Carbon Dioxide 38 mmol/L (22-32); Chloride 98 mmol/L (98-107); Estimated Glomerular Filt Rate > 60 mL/min (>60); Glucose 116 mg/dL (80-110); HEMOLYSIS < 15 (0-50); Magnesium 1.7 mg/dL (1.6-2.3); Potassium 4.1 mmol/L (3.4-5.1); Sodium 135 mmol/L (137-145)
[2023-01-20] MEDS: PANTOPRAZOLE DR 20 MG TABLET PO (05:58)
[2023-01-20] MEDS: OXYCODONE IR 10 MG TABLET PO ×3 (05:59→21:19)
[2023-01-20] MEDS: ALBUTEROL 2.5 MG/3 ML NEB (ADULT) INH (07:33)
[2023-01-20] MEDS: dilTIAZem CD 120 MG CAP PO ×2 (08:18→21:18)
[2023-01-20] MEDS: AMIODARONE 200 MG TABLET PO (08:18)
[2023-01-20] MEDS: lisinopriL 20 MG TABLET 40 MG PO (08:19)
[2023-01-20] MEDS: METOPROLOL IR 50 MG TABLET 200 MG PO ×2 (08:19→21:19)
[2023-01-20] MEDS: PHENYTOIN ER 100 MG CAPSULE 200 MG PO ×2 (08:21→21:19)
[2023-01-20] MEDS: FUROSEMIDE 40 MG/4 ML VIAL IV (08:23)
--- NOTE | 2023-01-20 09:36 | CM.DPC ---
Addendum entered by Elizabeth Montoya R.N. 01/20/23 11:39: Dr. Huerta feels that patient is not yet ready for discharge, has some cardiology needs, and patient was supposed to have a wound consult on her toe, which has not yet happened. Called [facility] and cancelled the leaf size picker. Updated Kelly at [facility], they can't take patient until Sunday, hospitalist is aware. Did update patient, and asked her who her primary care provider is, confirmed that it is Dr. Nunes. Updated Hospitalist. Original Note: DCP Cont: Updated hospitalist, Dr. Huerta, that [facility] can accept patient today, have BLS set up for noon leaf size picker. Did leave a message with Kelly at [facility], she did call back and confirmed that they can take her today. Asked her about single case agreement, stated, her administration was ok with waiving this. Currently awaiting DC orders, and will update Kelly. Will have hospitalist sign the BLS form. PASSR is completed. Cinthya would be the admission nurse taking report. P: DCP to continue to follow, awaiting to see if patient is ready for DC today, have already updated nurse, Errol, and community relations assistant. Elizabeth Montoya RN/Roll Wrapper
[2023-01-20] MEDS: cefTRIAXone 2,000 MG in SODIUM CHLORIDE 0.9% 100 ML 200 MG IV (10:13)
--- NOTE | 2023-01-20 11:40 | PT.IPTN ---
Current Diagnoses Nicotine dependence, unspecified, uncomplicated (01/14/23) Depression, unspecified (01/14/23) Polyneuropathy, unspecified (01/14/23) Essential (primary) hypertension (01/14/23) Other pulmonary embolism without acute cor pulmonale (01/14/23) Gastro-esophageal reflux disease without esophagitis (01/14/23) Cutaneous abscess of right foot (01/14/23) Cellulitis of right lower limb (01/14/23) Surgery Performed Operation Date: 01/15/23 16:30 Actual Procedures p Incision and Drainage great toe(Right) - Herberth Garcia MD Physical Therapy Treatment Note M2 PT-IP Current Condition Start: 01/16/23 16:22 Freq: NEEDED Status: Active Protocol: Document 01/16/23 14:10 AB (Rec: 01/16/23 16:36 AB [id number]) Physical Therapy Current Condition Current Condition Evaluation Date 01/16/23 Treatment Diagnosis R great toe infection s/p I&D; difficulty in walking Onset Date 01/14/23 M3 PT-IP Subjective Start: 01/16/23 16:22 Freq: NEEDED Status: Active Protocol: Document 01/20/23 12:09 TS (Rec: 01/20/23 12:34 TS [id number]) Subjective Physical Therapy Visit Type Type Treatment Note Visit Start Time 11:40 Visit Stop Time 12:06 Total Visit Minutes 26 Notes Per hospitalist ortho may clear pt for PWB on RLE, will need to confirm before next session. Vitals:Spo2 92% on 3L, desats to mid-high 80's with mobility . Number of LEVER OPERATOR Visits 2 Physical Therapy Visit Comments Patient Comments Pt agreeable to trial slideboard for transfer to w/c . M4 PT-IP Mobility and Gait Start: 01/16/23 16:22 Freq: NEEDED Status: Active Protocol: Document 01/20/23 12:09 TS (Rec: 01/20/23 12:34 TS [id number]) PT-Bed Mobility Assessment Supine to Sit Supine to Sit Minimal Assistance,1 Person Assistance,Head of Bed Elevated,Bedrails Scooting Scooting to Edge of Bed Contact Guard Assistance PT-Transfer Assessment Equipment Transfer Assistive Device Gait Belt,Sliding Board Orthotic/Prosthetic Devices or Brace: No Transfers Transfer Destination Chair Transfer Ability Level of Assist Moderate Assistance Comments Mobility Comments Pt found resting in bed, agreeable to use slideboard to transfer to w/c. Supine to sit Jerzy for LEs and uprighting trunk, pt heavily uses bed rails to pull self up into sitting position. Pt scooted to EOB CGA, slow to scoot and required max cueing for sequencing. Slideboard placed under pt with Jerzy for maintaining sitting balance from nursing, pad underneath feet for fluid from wounds. Pt transferred onto slideboard ModA x2 for stabilizing slideboard and sitting balance on board with max cues for sequencing, sling placed on w/ c for transfer back to bed. Pt scooted back in w/c Jerzy and max cues for repositioning. Pt was left in chair with nursing attending to needs. PT-Balance Assessment Sitting Balance and Reactions Static Sitting Balance Ability Fair Dynamic Sitting Balance Ability Fair M5 PT-IP Objective Assessments Start: 01/16/23 16:22 Freq: NEEDED Status: Active Protocol: Document 01/16/23 14:10 AB (Rec: 01/16/23 16:36 AB [id number]) Orientation Orientation/Cognition Level of Alertness Alert Orientation Age Safety Awareness Decreased Safety Awareness Gross Range of Motion Lower Extremity ROM Assessment Within Functional Limits Strength Lower Extremity Strength Assessment Within Functional Limits Sensation Assessment Sensation Gross Sensation Right LE Impaired,Left LE Impaired Sensation Description Numbness Comments Sensation Comments has chronic neuropathy on BLE Other Assessments Other Other Assessments pt has L great toe pad wound M6 PT-IP Treatment Start: 01/16/23 16:22 Freq: NEEDED Status: Active Protocol: Document 01/17/23 13:31 MB (Rec: 01/17/23 14:03 MB [id number]) Physical Therapy Treatment Other Treatments Other Treatment Performed Pt performs the following exercises in supine and with little assistance to make sure she does not slide heels too much on the mattress: 20 reps APs, 10 reps GS and QS, 10 reps heel slides (PT guards heels/unweights them) and 10 reps hip abduction and adduction (PT guards heels) M7 PT-IP Assessment and Plan Start: 01/16/23 16:22 Freq: NEEDED Status: Active Protocol: Document 01/20/23 12:09 TS (Rec: 01/20/23 12:34 TS [id number]) PT Summary Assessment and Plan Potential Rehabilitation Potential Fair Summary Impairments Pain,ROM,Strength,Balance, Coordination,Sensation,Tone, Cognition,Bed Mobility, Transfers,Gait,Activity Tolerance Progress Towards Goals Slow Progress due to Medical Issues,Slow Progress due to Activity Tolerance Assessment Summary Pt continues to make slow progress due to her miedical issues, having poor activity tolerance and NWB status on RLE. She is on 3L of o2 resting at 92%, desats to mid to high 80's with mobility. Pt performed supine to sit Jerzy x1. She uses heavy BUE support with bedrail to pull herself up into sitting, requires some cueing for sequencing. Pt performed slideboard transfer to w/c with ModA x2 from nursing, pt required max cueing, assist for balance and stabilizing of slideboard, pt did well when provided cues. At end of session hospitalist informed therapist of ortho may make pt PWB on RLE. PT continues to recommend SNF rehab to progress all functional mobility and activity tolerance. Goals Bed Mobility Goal Minimal Assistance Transfer Goal Moderate Assistance,Front Wheeled Walker Gait Goal Moderate Assistance,Front Wheel Walker Gait Distance 25 Other Goals improve bed mobility , transfers CGA using FWW, ambulation min A using FWW 30 ft Days to Meet Goals 10 Frequency of Treatment Frequency Of Treatment Once a Day Treatment Plan Physical Therapy Treatment Plan Bed Mobility Training,Transfer Training,Gait Training, Therapeutic Exercise,Balance Retraining,Post Op Education, Discharge Planning,Hot or Cold Pack,Neuromuscular Re-ed, Coordination Retraining,Manual Therapy Other Recommendations and Next Treatment Continue slideboard training, Focus confirm PWB status on RLE. Weight Bearing Status Weight Bearing Status Non-Weight Bearing Allowed Weight Bearing Amount (enter % RLE NWB or #) (%) Recommendations To Nursing Amount of Assist Needed Mechanical Lift Discharge Recommendations PT Discharge Recommendations SNF Rehab Transportation Needs at Discharge Wheelchair/Cabulance,Stretcher /Ambulance
--- NOTE | 2023-01-20 16:15 | PM.PN.1 ---
Subjective Subjective Interval history: Patient did well using slide board with PT today. WBC down to 14.4. After discussing interaction of amio with warfarin and dilantin, patient willing to try just dilt plus metoprolol for rate control. Exam Vital Signs (past 8 hours): - 01/20/23 08:19 01/20/23 10:00 01/20/23 12:00 Pulse Rate 116 H 75 74 Respiratory Rate 15 Blood Pressure 134/64 Pulse Oximetry 93 87 L Fraction of Inspired Oxygen 32 SaO2/FiO2 Ratio 290 Oxygen Delivery Method Nasal Cannula Oxygen Flow Rate 3 Const Other: GEN: ill-appearing elderly female, fatigued, oriented x3 HEENT:NC, Face symmetric CHEST: Respiratory excursions symmetric, scattered anterior wheezes CV: irregularly irregular,, no M/R/G ABD: Soft, obese,NT/ND, BT present in all 4 quadrants, they habitus limits exam EXTR: warm, well perfused, chronic venous stasis changes noted come noted to the ball of the left great toe with ulceration, right foot wound was not visualized due to postop dressing but R leg remains mildly erythematous but improved SKIN: warm and dry, no rash NEURO: oriented x 3, nonfocal Objective Labs 01/20/23 04:24 01/20/23 04:24 Labs: Laboratory Results - last 24 hr 01/20/23 01/20/23 01/20/23 04:24 04:24 04:24 WBC 14.4 H RBC 3.76 L Hgb 10.8 L Hct 33.1 L MCV 88.0 MCH 28.8 MCHC 32.7 RDW 14.1 Plt Count 403 H Neut % (Auto) 81.7 H Lymph % (Auto) 11.0 L [place] % (Auto) 6.6 Eos % (Auto) 0.1 L Baso % (Auto) 0.6 Neut # (Auto) 68646 H Lymph # (Auto) 1600 [place] # (Auto) 1000 H Eos # (Auto) 0 Baso # (Auto) 100 PT 31.2 H INR 2.7 H Sodium 135 L Potassium 4.1 Chloride 98 Carbon Dioxide 38 H BUN 23 H Creatinine 0.69 Estimated GFR > 60 BUN/Creatinine Ratio 33.3 H Glucose 116 H Calcium 8.4 Magnesium 1.7 PFSH Medical History Smoker Social History household members: none Smoking Status: Current every day smoker alcohol intake: never Assessment & Plan Assessment & Plan narrative: 1. New diagnosis afib with RVR. - difficult to control but now improving - TTE with normal EF, no wall motion abnormalities. - unfortunately with phenytoin interactions, coumadin remains the best anticoagulant for her. Continue dosing per pharmacy. - required oral metoprolol increased to 150 mg BID, diltiazem PO with IV infusion, digoxin loaded IV and amiodarone IV loading. Rates now to 70s. With normal EF, stopped digoxin, continue metoprolol and oral dilt 120 mg BID. Stopped amiodarone after discussion with patient due to hazardous effects residential and interactions with warfarin and dilantin. 2. Abscess of great toe, right with RLE cellulitis and Strep bacteremia, present on admission. - Seen by Dr. Garcia and orthopedics team, now s/p I&D, non weight bearing per orders. - CT angio with runoff without any obvious PAD of b/l LE. - INR supratherapeutic on admission, taken off warfarin initially, now restarted but INR 3 today. Continue dosing per pharmacy. - Meropenem initially for BC positive for G+ cocci, Gram negatives on wound culture. Wound culture with group G strep as well. Narrowed to Ceftriaxone 01/16. Will need 2 weeks of IV ceftriaxone for bacteremia until 01/30. Repeat Blood culture 01/15 negative. - ortho to give recs for dressing changes and f/u 3. Acute on chronic respiratory failure with hypoxia, with acute diastolic heart failure - most probably diastolic heart failure with RVR, patient on 2L chronically - given IV lasix, now stopped - at baseline O2 4. HTN Clonidine, metoprolol, Lisinopril - grossly uncontrolled on admission, but also with pain. Has been a bit better and increasing rate control agents as noted above 5. Pulmonary embolism: -now on coumadin per pharmacy further discussed above 6. Peripheral neuropathy: ? - continue pain control 7. GERD (gastroesophageal reflux disease): PPI 8. Depression: Zoloft 9. Smoker: nicotine replacement prn, albuterol prn 10. Obesity The patient is at much higher risk for medical and surgical complications because of their obesity. This increases the difficulty and complexity of medical and surgical interventions and increases the chances of poor outcomes such as morbidity and mortality. 11. ? seizure disorder - continue phenytoin dosing, level checked and was low at 4.2 but given medication interactions and no seizures will defer to outpatient management. Additional history obtained via discussion with hospital staff. I have reviewed patient's labs, imaging, and documentation. Discussed plan with patient and case management today. Code: Full, surrogate is annmarie platt, family Dispo: Pending SNF for IV abx and PT.
[2023-01-20] MEDS: WARFARIN 1 MG TABLET 3 MG PO (17:14)
[2023-01-20] MEDS: ALBUTEROL/IPRATROPIUM 3 ML AMPUL INH (20:57)
[2023-01-20] MEDS: BACLOFEN 10 MG TABLET 40 MG PO (21:20)
[2023-01-20] MEDS: SERTRALINE 50 MG TABLET 100 MG PO (21:24)
[2023-01-21] VITALS (26 sets, daily range): BP systolic 139–199; BP diastolic 72–94; PULSE 72–119; RESP 16–33; TEMP 36.2–36.9; O2SAT 90–96
[2023-01-21 05:39] LABS: Add Manual Diff / Slide Review NO; Basophils Absolute Auto 200 /uL (0-100); Basophils Percent Auto 1.4 % (0-2); Eosinophils Absolute Auto 0 /uL (0-450); Eosinophils Percent Auto 0.1 % (2-4); Hematocrit 33.7 % (36-46); Hemoglobin 11.3 g/dL (12.0-16.0); Lymphocytes Absolute Auto 1500 /uL (1100-4500); Lymphocytes Percent Auto 10.6 % (25-40); Mean Corpuscular HGB Conc 33.5 % (30-36); Mean Corpuscular Hemoglobin 29.7 PG (26-34); Mean Corpuscular Volume 88.7 fL (80-100); Monocytes Absolute Auto 900 /uL (0-900); Monocytes Percent Auto 6.3 % (3-14); Neutrophils Absolute Auto 11700 /uL (1500-7000); Neutrophils Percent Auto 81.6 % (50-75); Platelet Count 443 X10^3/uL (150-400); Red Cell Distribution Width 14.1 % (11.6-14.8); White Blood Cell Count 14.4 X10^3/uL (4.5-11.0)
[2023-01-21 05:49] LABS: BUN Creatinine Ratio 37.5 (6-22); Blood Urea Nitrogen 24 mg/dL (7-17); Calcium 8.5 mg/dL (8.4-10.2); Carbon Dioxide 37 mmol/L (22-32); Chloride 99 mmol/L (98-107); Estimated Glomerular Filt Rate > 60 mL/min (>60); Glucose 122 mg/dL (80-110); HEMOLYSIS < 15 (0-50); Magnesium 1.6 mg/dL (1.6-2.3); Sodium 137 mmol/L (137-145)
[2023-01-21] MEDS: PANTOPRAZOLE DR 20 MG TABLET PO (06:09)
[2023-01-21 06:13] LABS: INR 2.3 (0.9-1.3); Prothrombin Time 26.2 SECONDS (10.1-12.7)
[2023-01-21] MEDS: ALBUTEROL 2.5 MG/3 ML NEB (ADULT) INH (07:32)
[2023-01-21] MEDS: dilTIAZem CD 120 MG CAP PO ×2 (08:42→20:06)
[2023-01-21] MEDS: FUROSEMIDE 40 MG/4 ML VIAL IV (08:42)
[2023-01-21] MEDS: METOPROLOL IR 50 MG TABLET 200 MG PO ×2 (08:45→20:07)
[2023-01-21] MEDS: lisinopriL 20 MG TABLET 40 MG PO (08:48)
[2023-01-21] MEDS: PHENYTOIN ER 100 MG CAPSULE 200 MG PO ×2 (08:49→20:07)
[2023-01-21] MEDS: cefTRIAXone 2,000 MG in SODIUM CHLORIDE 0.9% 100 ML 200 MG IV (08:49)
--- NOTE | 2023-01-21 09:04 | DI.RAD.S_ITS ---
PROCEDURE: XR CHEST 1V INDICATIONS: leukocytosis TECHNIQUE: One view of the chest was acquired. COMPARISON: [facility], CT, CT ANGIO ABD AORTA RUNOFF, 01/15/2023, 14:59. [facility], CR, XR CHEST 1V, 01/18/2023, 8:25. FINDINGS: Surgical changes and devices: None. Lungs and pleura: Ill-defined hazy opacities in the bilateral periphery and right apex. No pleural effusion. Mediastinum: Mediastinal contours appear normal. Heart size is normal. Bones and chest wall: No suspicious bony lesions. Overlying soft tissues appear unremarkable. IMPRESSION: Ill-defined peripheral bilateral hazy opacities is concerning for atypical infection. Dictated by: Julian Gonsalez M.D. on 01/21/2023 at 8:34 Approved by: Julian Gonsalez M.D. on 01/21/2023 at 8:53
[2023-01-21] MEDS: OXYCODONE IR 10 MG TABLET PO ×3 (09:06→23:39)
--- NOTE | 2023-01-21 10:36 | PT.IPTN ---
Current Diagnoses Nicotine dependence, unspecified, uncomplicated (01/14/23) Depression, unspecified (01/14/23) Polyneuropathy, unspecified (01/14/23) Essential (primary) hypertension (01/14/23) Other pulmonary embolism without acute cor pulmonale (01/14/23) Gastro-esophageal reflux disease without esophagitis (01/14/23) Cutaneous abscess of right foot (01/14/23) Cellulitis of right lower limb (01/14/23) Non-pressure chronic ulcer of other part of left foot with unspecified severity (01/14/23) Surgery Performed Operation Date: 01/15/23 16:30 Actual Procedures p Incision and Drainage great toe(Right) - Herberth Garcia MD Physical Therapy Treatment Note M2 PT-IP Current Condition Start: 01/16/23 16:22 Freq: NEEDED Status: Active Protocol: Document 01/16/23 14:10 AB (Rec: 01/16/23 16:36 AB [id number]) Physical Therapy Current Condition Current Condition Evaluation Date 01/16/23 Treatment Diagnosis R great toe infection s/p I&D; difficulty in walking Onset Date 01/14/23 M3 PT-IP Subjective Start: 01/16/23 16:22 Freq: NEEDED Status: Active Protocol: Document 01/21/23 12:53 AB(2) (Rec: 01/21/23 13:11 AB(2) [id number]) Subjective Physical Therapy Visit Type Type Treatment Note Visit Start Time 10:36 Visit Stop Time 11:08 Total Visit Minutes 32 Notes Per MD, pt is now PWB through LLE, however further clarification is needed. At end of session, KILN HEAD HOUSE OPERATOR and PT assisted the pt to a comfortable position in bed, and pt was left with all needs met and call light within reach. Number of CHILD CARE GIVER Visits 2 Physical Therapy Visit Comments Patient Comments The pt presents semi supine after handoff from nursing staff post bed bath. She states she is feeling very fatigued and is having pain in both legs but is agreeable to participate in therapy. Patient Goals To keep getting stronger. Therapy Pain Assessment Pain When Pain Assessed At Rest Pain Present Pain Present Pain Reported Location Right Foot Intensity 7 Scale Used Numeric (0 - 10) Pain Management Techniques Re-positioning Right Lower Leg Intensity 7 Scale Used Numeric (0 - 10) Pain Management Techniques Re-positioning M4 PT-IP Mobility and Gait Start: 01/16/23 16:22 Freq: NEEDED Status: Active Protocol: Document 01/21/23 12:53 AB(2) (Rec: 01/21/23 13:11 AB(2) [id number]) PT-Bed Mobility Assessment Rolling Type of Rolling Roll to Right,Roll to Left Level of Assist Minimal Assistance PT-Transfer Assessment Comments Mobility Comments Slide board transfer was not attempted today due to level of fatigue and pain. M5 PT-IP Objective Assessments Start: 01/16/23 16:22 Freq: NEEDED Status: Active Protocol: Document 01/16/23 14:10 AB (Rec: 01/16/23 16:36 AB [id number]) Orientation Orientation/Cognition Level of Alertness Alert Orientation Age Safety Awareness Decreased Safety Awareness Gross Range of Motion Lower Extremity ROM Assessment Within Functional Limits Strength Lower Extremity Strength Assessment Within Functional Limits Sensation Assessment Sensation Gross Sensation Right LE Impaired,Left LE Impaired Sensation Description Numbness Comments Sensation Comments has chronic neuropathy on BLE Other Assessments Other Other Assessments pt has L great toe pad wound M6 PT-IP Treatment Start: 01/16/23 16:22 Freq: NEEDED Status: Active Protocol: Document 01/21/23 12:53 AB(2) (Rec: 01/21/23 13:11 AB(2) [id number]) Physical Therapy Treatment Exercises Exercises Ankle Pumps,Short Arc Quads, Elbow Flexion/Extension Education Education Provided Precautions,Weight Bearing Status,Safety Brace Education Patient Other Treatments Other Treatment Performed APs x10 ea, SAQ x5 ea, hip ADD pillow squeeze x10, elbow flex/ext x10 Pt educated on purpose/ indication for physical therapy interventions, including the benefits of bed level exercises. The pt was also informed on precautions to take regarding bed mobility to avoid aggravating her RLE foot pain and to avoid causing bed wounds from friction. M7 PT-IP Assessment and Plan Start: 01/16/23 16:22 Freq: NEEDED Status: Active Protocol: Document 01/21/23 12:53 AB(2) (Rec: 01/21/23 13:11 AB(2) [id number]) PT Summary Assessment and Plan Potential Rehabilitation Potential Fair Status of Condition at Evaluation Evolving Summary Impairments Pain,Strength,Bed Mobility, Transfers,Gait,Activity Tolerance Progress Towards Goals Slow Progress due to Pain,Slow Progress due to Medical Issues,Slow Progress due to Activity Tolerance Assessment Summary The pt is progressing slowly towards her goals secondary to pain, decreased tolerance to activity, weakness and endurance deficits. Today's session was limited to bed level exercises due to her level of fatigue and pain, though she reports being motivated to participate as much as she can. The pt continues to benefit from skilled PT interventions to improve her deficits and help her to return to her highest level of function. Goals Bed Mobility Goal Minimal Assistance Transfer Goal Moderate Assistance,Front Wheeled Walker Gait Goal Moderate Assistance,Front Wheel Walker Gait Distance 25 Days to Meet Goals 10 Frequency of Treatment Frequency Of Treatment Once a Day Treatment Plan Physical Therapy Treatment Plan Bed Mobility Training,Transfer Training,Gait Training, Therapeutic Exercise,Balance Retraining,Post Op Education, Hot or Cold Pack,Neuromuscular Re-ed,Manual Therapy Weight Bearing Status Weight Bearing Status Partial Weight Bearing Allowed Weight Bearing Amount (enter % TBD- need further or #) (%) clarification from MD Recommendations To Nursing Amount of Assist Needed Mechanical Lift Discharge Recommendations PT Discharge Recommendations SNF Rehab Transportation Needs at Discharge Wheelchair/Cabulance,Stretcher /Ambulance
[2023-01-21] MEDS: DOXYCYCLINE HYCLATE 100 MG TABLET PO ×2 (11:31→20:07)
--- NOTE | 2023-01-21 12:10 | PM.PNPO.1 ---
Subjective Subjective Interval history: She is making slow progress with antibiotics and treatment for her foot ulcer and leg cellulitis. She notes some continued pain in the right leg. She notes minimal left leg pain. She is having some ongoing right leg pain. Exam Vital Signs (past 8 hours): - 01/21/23 07:32 01/21/23 08:48 01/21/23 07:00 Temperature Pulse Rate 97 H 88 Respiratory Rate 18 Blood Pressure 189/86 H Pulse Oximetry 93 Oxygen Delivery Method Nasal Cannula Nasal Cannula Oxygen Flow Rate 3 Fraction of Inspired Oxygen 32 01/21/23 04:18 01/21/23 04:18 01/21/23 04:19 Temperature Pulse Rate 89 Respiratory Rate 20 Blood Pressure 180/77 H 184/94 H Pulse Oximetry 94 Oxygen Delivery Method Oxygen Flow Rate Fraction of Inspired Oxygen 01/21/23 04:19 01/21/23 06:00 01/21/23 08:00 Temperature 97.1 F L Pulse Rate 87 93 H 101 H Respiratory Rate 23 17 19 Blood Pressure Pulse Oximetry 96 95 94 Oxygen Delivery Method Oxygen Flow Rate Fraction of Inspired Oxygen 01/21/23 08:04 01/21/23 08:04 01/21/23 08:47 Temperature Pulse Rate 104 H 109 H Respiratory Rate 19 22 Blood Pressure 189/81 H Pulse Oximetry 92 90 L Oxygen Delivery Method Oxygen Flow Rate Fraction of Inspired Oxygen 01/21/23 08:47 Temperature Pulse Rate Respiratory Rate Blood Pressure 193/86 H Pulse Oximetry Oxygen Delivery Method Oxygen Flow Rate Fraction of Inspired Oxygen Fraction of Inspired Oxygen 32 SaO2/FiO2 Ratio 290 Oxygen Delivery Method Nasal Cannula Oxygen Flow Rate 3 Narrative Exam Narrative: She is resting comfortably in bed she says she still has aching legs. The left lower extremity shows a wound under the left great toe MTP joint there is moderate callus formation there is no purulence but there is an obvious foot ulcer on the left. The remainder of the left leg is fairly benign. The right lower extremity shows erythema in the right calf, there is no specific fluctuance or clinical suggestion of an abscess, the right great toe the packing is removed there is a moderately large cavity, a slight necrotic tissue on the dorsum of the toe, there is no obvious abscess, there is a fairly significant cavity which tracked down to the IP joint, there was also a wound on volar aspect of the great toe Objective Labs 01/21/23 04:34 01/21/23 04:34 Labs: Laboratory Results - last 24 hr 01/21/23 01/21/23 01/21/23 04:34 04:34 04:34 WBC 14.4 H RBC 3.80 L Hgb 11.3 L Hct 33.7 L MCV 88.7 MCH 29.7 MCHC 33.5 RDW 14.1 Plt Count 443 H Neut % (Auto) 81.6 H Lymph % (Auto) 10.6 L [place] % (Auto) 6.3 Eos % (Auto) 0.1 L Baso % (Auto) 1.4 Neut # (Auto) 20267 H Lymph # (Auto) 1500 [place] # (Auto) 900 Eos # (Auto) 0 Baso # (Auto) 200 H PT 26.2 H D INR 2.3 H Sodium 137 Potassium 4.0 Chloride 99 Carbon Dioxide 37 H BUN 24 H Creatinine 0.64 Estimated GFR > 60 BUN/Creatinine Ratio 37.5 H Glucose 122 H Calcium 8.5 Magnesium 1.6 PFSH Medical History Smoker Social History household members: none Smoking Status: Current every day smoker alcohol intake: never Assessment & Plan Post-op Assessment and plan (1) Abscess of great toe, right: Assessment and Plan narrative: The packing is removed from her right great toe. We are going to begin daily dressing changes. Her white count continues to be slightly elevated. It is improved in comparison to admit her admission white count. She is on antibiotics. She does need consultation with the wound practitioners. We will continue to follow her. She may ultimately need additional revision surgery. There does appear to be some viable soft tissue to the tip of her toe but she may have underlying extension of the infection into her distal phalanx. (2) Cellulitis of right lower limb: Assessment and Plan narrative: Improving on antibiotics. (3) Peripheral neuropathy: Assessment and Plan narrative: Stable (4) Foot ulcer, left: Assessment and Plan narrative: Needs wound care but does not appear to require operative intervention Postoperative Procedures: Procedures Operation Date: 01/15/23 16:30 Actual Procedure Side Surgeon p Incision and Drainage great toe Right Herberth Garcia MD Postoperative day: 6 Postoperative plan narrative: Packings removed. Begin daily dressing changes. Continue IV antibiotics. Patient can be weight-bearing as tolerated on bilateral lower extremities in postoperative shoes.
[2023-01-21] MEDS: HYDROMORPHONE 1 MG INJ 0.5 MG IV (12:13)
[2023-01-21] MEDS: WARFARIN 1 MG TABLET 3 MG PO (17:02)
--- NOTE | 2023-01-21 18:53 | PM.PN.1 ---
Subjective Subjective Interval history: Ortho saw patient and gave dressing change instructions. HR in 90's since stopping amio. She has no complaints. Exam Vital Signs (past 8 hours): - 01/21/23 12:00 01/21/23 12:00 01/21/23 14:00 Temperature 97.1 F L Pulse Rate 79 90 Respiratory Rate 18 21 23 Blood Pressure 139/72 Pulse Oximetry 92 92 01/21/23 16:00 01/21/23 16:04 01/21/23 16:04 Temperature 97.8 F Pulse Rate 97 H 100 H Respiratory Rate 23 22 19 Blood Pressure 159/85 H Pulse Oximetry 92 90 L Fraction of Inspired Oxygen 32 SaO2/FiO2 Ratio 290 Oxygen Delivery Method Nasal Cannula Oxygen Flow Rate 3 Const Other: GEN: ill-appearing elderly female, fatigued, oriented x3 HEENT:NC, Face symmetric CHEST: Respiratory excursions symmetric, scattered anterior wheezes CV: irregularly irregular,, no M/R/G ABD: Soft, obese,NT/ND, BT present in all 4 quadrants, they habitus limits exam EXTR: warm, well perfused, chronic venous stasis changes noted come noted to the ball of the left great toe with ulceration, right foot wound was not visualized due to postop dressing but R leg remains mildly erythematous but improved SKIN: warm and dry, no rash NEURO: oriented x 3, nonfocal Objective Labs 01/21/23 04:34 01/21/23 04:34 Labs: Laboratory Results - last 24 hr 01/21/23 01/21/23 01/21/23 04:34 04:34 04:34 WBC 14.4 H RBC 3.80 L Hgb 11.3 L Hct 33.7 L MCV 88.7 MCH 29.7 MCHC 33.5 RDW 14.1 Plt Count 443 H Neut % (Auto) 81.6 H Lymph % (Auto) 10.6 L [place] % (Auto) 6.3 Eos % (Auto) 0.1 L Baso % (Auto) 1.4 Neut # (Auto) 01215 H Lymph # (Auto) 1500 [place] # (Auto) 900 Eos # (Auto) 0 Baso # (Auto) 200 H PT 26.2 H D INR 2.3 H Sodium 137 Potassium 4.0 Chloride 99 Carbon Dioxide 37 H BUN 24 H Creatinine 0.64 Estimated GFR > 60 BUN/Creatinine Ratio 37.5 H Glucose 122 H Calcium 8.5 Magnesium 1.6 [facility] Medical History Smoker Social History household members: none Smoking Status: Current every day smoker alcohol intake: never Assessment & Plan Assessment & Plan narrative: 1. New diagnosis afib with RVR. Improved. - difficult to control but now improving - TTE with normal EF, no wall motion abnormalities. - unfortunately with phenytoin interactions, coumadin remains the best anticoagulant for her. Continue dosing per pharmacy. - required oral metoprolol increased to 150 mg BID, diltiazem PO with IV infusion, digoxin loaded IV and amiodarone IV loading. Rates now to 70s. With normal EF, stopped digoxin, continue metoprolol and oral dilt 120 mg BID. Stopped amiodarone after discussion with patient due to hazardous effects [facility] and interactions with warfarin and dilantin. 2. Abscess of great toe, right with RLE cellulitis and Strep bacteremia, present on admission. - Seen by Dr. Garcia and orthopedics team, now s/p I&D, non weight bearing per orders. - CT angio with runoff without any obvious PAD of b/l LE. - INR supratherapeutic on admission, taken off warfarin initially, now restarted but INR 3 today. Continue dosing per pharmacy. - Meropenem initially for BC positive for G+ cocci, Gram negatives on wound culture. Wound culture with group G strep as well. Narrowed to Ceftriaxone 01/16. Will need 2 weeks of IV ceftriaxone for bacteremia until 01/30. Repeat Blood culture 01/15 negative. - ortho gave recs for dressing changes - ortho monitoring for possible repeat debridement due to persistently elevated WBC 3. Acute on chronic respiratory failure with hypoxia, with acute diastolic heart failure and possible pneumonia - most probably diastolic heart failure with RVR, patient on 2L chronically - given IV lasix, now stopped - at baseline O2 2-3L - CXR on 01/21 with possible pneumonia - doxy po added for atypical coverage, continue rocephin as above 4. HTN Clonidine, metoprolol, Lisinopril - grossly uncontrolled on admission, but also with pain. Has been a bit better and increasing rate control agents as noted above 5. Pulmonary embolism: -now on coumadin per pharmacy further discussed above 6. Peripheral neuropathy: ? - continue pain control 7. GERD (gastroesophageal reflux disease) -PPI 8. Depression -Zoloft 9. Smoker -nicotine replacement prn, albuterol prn 10. Obesity -The patient is at much higher risk for medical and surgical complications because of their obesity. This increases the difficulty and complexity of medical and surgical interventions and increases the chances of poor outcomes such as morbidity and mortality. 11. ? seizure disorder -continue phenytoin dosing, level checked and was low at 4.2 but given medication interactions and no seizures will defer to outpatient management. Additional history obtained via discussion with hospital staff. I have reviewed patient's labs, imaging, and documentation. Discussed plan with patient and case management today. Code: Full, surrogate is annmarie giulia, family Dispo: Pending ortho recs for possible repeat debridement of toe. SNF already arranged when ready.
[2023-01-21] MEDS: BACLOFEN 10 MG TABLET 40 MG PO (20:06)
[2023-01-21] MEDS: SODIUM CHLORIDE 0.9% FLUSH 10 ML IV (20:08)
[2023-01-21] MEDS: SERTRALINE 50 MG TABLET 100 MG PO (20:09)
--- NOTE | 2023-01-21 22:40 | PC.NURSE ---
Addendum entered by Yarelis Rojas R.N. 01/22/23 06:31: At 0400 patient's O2 sat was staying at 89% so RT up to provide neb Rx. Again at 0500 patient's sat maintaining at 89% so increased to 3L/min and O2 sat is now at 94%. Original Note: Patient is alert and oriented; soft spoken. Breath sounds with crackles in right mid/lower lobes and is on oxygen at 2L/min with sat of 93; obvious SOB at rest and using purse lip breathing. Is on continuous oximetry. HR irregular with telemetry reading of afib CVR although at time of assessment was tachycardic with rate of 107. BP elevated at 168/91 and was medicated with scheduled Metoprolol + Diltiazen. Denied nausea. BT hypoactive but states she is passing flatus; reports she has been incontinent of stool. States she has also been incontinent of urine and currently has external catheter in place. Is able to move herself somewhat in bed but needs assistance to get off her buttocks. Reportedly gets up to chair with use of slider board + PT assist or use of mechanical lift. Dressings to bilateral feet are CDI; has some erythema in right LE from mid marie down. Has bilateral LE neuropathy; unable to feel touch below left knee and feels only pressure touch below knee on right. Declines use of bilateral calf SCD's. Did complain of bilateral LE pain and was medicated with oxycodone and is currently asleep. Fall risk score is moderate and bed alarm is activated although patient is oriented and would be unable to get up by herself.
[2023-01-22] VITALS (23 sets, daily range): BP systolic 167–208; BP diastolic 66–90; PULSE 64–90; RESP 18–36; TEMP 35.7–36.1; O2SAT 88–95
[2023-01-22] MEDS: HYDROMORPHONE 1 MG INJ 0.5 MG IV (01:05)
[2023-01-22] MEDS: SODIUM CHLORIDE 0.9% FLUSH 10 ML IV ×3 (01:05→21:04)
[2023-01-22] MEDS: ALBUTEROL/IPRATROPIUM 3 ML AMPUL INH ×4 (03:56→22:27)
[2023-01-22 05:13] LABS: INR 2.4 (0.9-1.3)
[2023-01-22 05:14] LABS: Add Manual Diff / Slide Review NO; Basophils Absolute Auto 0 /uL (0-100); Basophils Percent Auto 0.3 % (0-2); Eosinophils Absolute Auto 0 /uL (0-450); Eosinophils Percent Auto 0.1 % (2-4); Hematocrit 34.5 % (36-46); Hemoglobin 11.7 g/dL (12.0-16.0); Lymphocytes Absolute Auto 1700 /uL (1100-4500); Lymphocytes Percent Auto 13.3 % (25-40); Mean Corpuscular HGB Conc 33.9 % (30-36); Mean Corpuscular Hemoglobin 29.5 PG (26-34); Mean Corpuscular Volume 87.1 fL (80-100); Monocytes Absolute Auto 900 /uL (0-900); Monocytes Percent Auto 6.9 % (3-14); Neutrophils Absolute Auto 10100 /uL (1500-7000); Neutrophils Percent Auto 79.4 % (50-75); Platelet Count 473 X10^3/uL (150-400); Red Blood Cell Count 3.96 X10^6/uL (4.0-5.2); Red Cell Distribution Width 14.3 % (11.6-14.8); White Blood Cell Count 12.8 X10^3/uL (4.5-11.0)
[2023-01-22 05:30] LABS: BUN Creatinine Ratio 36.8 (6-22); Blood Urea Nitrogen 21 mg/dL (7-17); Calcium 8.5 mg/dL (8.4-10.2); Chloride 96 mmol/L (98-107); Estimated Glomerular Filt Rate > 60 mL/min (>60); Glucose 109 mg/dL (80-110); HEMOLYSIS < 15 (0-50); Sodium 137 mmol/L (137-145)
[2023-01-22 05:36] LABS: Carbon Dioxide 34 mmol/L (22-32)
[2023-01-22] MEDS: PANTOPRAZOLE DR 20 MG TABLET PO (06:18)
[2023-01-22] MEDS: dilTIAZem CD 120 MG CAP PO ×2 (08:31→21:02)
[2023-01-22] MEDS: DOXYCYCLINE HYCLATE 100 MG TABLET PO (08:31)
[2023-01-22] MEDS: PHENYTOIN ER 100 MG CAPSULE 200 MG PO ×2 (08:32→21:03)
[2023-01-22] MEDS: lisinopriL 20 MG TABLET 40 MG PO (08:32)
[2023-01-22] MEDS: METOPROLOL IR 50 MG TABLET 200 MG PO ×2 (08:32→21:03)
[2023-01-22] MEDS: cefTRIAXone 2,000 MG in SODIUM CHLORIDE 0.9% 100 ML 200 MG IV (08:32)
--- NOTE | 2023-01-22 10:29 | CM.DPNOTE ---
Addendum entered by Hilda Carter 01/26/23 08:35: Cancelled [facility] BLS transport; patient going by [facility] instead per Mary. Hilda Carter CM Assist. Addendum entered by Hilda Carter 01/24/23 09:35: I called Ambulance and spoke to Gavino to move BLS transport to Sunday 1100 to [facility], per Fauzia JONES Et[employer] Database Developer. Hilda Carter CM Assist. Addendum entered by Hilda Carter 01/23/23 09:40: Brittani requested to reschedule BLS for Sunday, 01/24 tp [facility] due to O2 levels fluctuating. Suma Carter CM Assist. Original Note: Called for BLS transport, [facility] for tomorrow at 1100 requested by Brittani. Spoke to Ghada at [facility] initially for 1500 transport on Sunday, 814; then changed to 01/23 to 1100. Hilda Carter CM Assist.
--- NOTE | 2023-01-22 10:33 | CM.DPC ---
Addendum entered by Elizabeth Montoya R.N. 01/22/23 12:17: Spoke to Eli Merlos, PAC with ortho, stated that patient is now weight bearing as tolerated, daily dressings, and will need to continue with daily IV ABO. She indicated she will document this in patient's chart, so hospitalist is updated. Original Note: DCP Cont: Patient was supposed to discharge today to [facility], had updated [place], and hospitalist wanted to ensure that ortho was clearing patient. Had left a message with Eli Merlos, PAC, food and nutrition services supervisor for ortho to see if patient was medically ready. Had set up BLS for picking table worker at 1500. Found out from Dr. Lopez, he wants to keep her another day, due to her respirations. JULIANNA Stevens nurseryman assistant, called [facility] and cancelled picking table worker for today, did go ahead and set up for tomorrow with picking table worker at 11:00. [place] at [facility] was updated. P: DCP to continue to follow, if patient is medically cleared tomorrow, can be picked up at 11:00 to go to [facility]. Elizabeth Montoya RN/[employer]
[2023-01-22] MEDS: predniSONE 20 MG TABLET 40 MG PO (11:10)
[2023-01-22] MEDS: AZITHROMYCIN 250 MG TABLET 500 MG PO (11:10)
--- NOTE | 2023-01-22 11:45 | PT-IP ANOTE ---
Received orders for bilateral post op shoes. Pt may WBAT in offloading shoes. Checked inventory and found no offloading shoes in a size that will work for pt. Called and left message with vendor. Pt is too fatigued to participate with PT this AM. Will follow up PM.
[2023-01-22] MEDS: OXYCODONE IR 10 MG TABLET PO ×3 (12:06→21:10)
--- NOTE | 2023-01-22 14:19 | PT.IPTN ---
Current Diagnoses Nicotine dependence, unspecified, uncomplicated (01/14/23) Depression, unspecified (01/14/23) Polyneuropathy, unspecified (01/14/23) Essential (primary) hypertension (01/14/23) Other pulmonary embolism without acute cor pulmonale (01/14/23) Gastro-esophageal reflux disease without esophagitis (01/14/23) Cutaneous abscess of right foot (01/14/23) Cellulitis of right lower limb (01/14/23) Non-pressure chronic ulcer of other part of left foot with unspecified severity (01/14/23) Surgery Performed Operation Date: 01/15/23 16:30 Actual Procedures p Incision and Drainage great toe(Right) - Herberth Garcia MD Physical Therapy Treatment Note M2 PT-IP Current Condition Start: 01/16/23 16:22 Freq: NEEDED Status: Active Protocol: Document 01/16/23 14:10 AB (Rec: 01/16/23 16:36 AB [id number]) Physical Therapy Current Condition Current Condition Evaluation Date 01/16/23 Treatment Diagnosis R great toe infection s/p I&D; difficulty in walking Onset Date 01/14/23 M3 PT-IP Subjective Start: 01/16/23 16:22 Freq: NEEDED Status: Active Protocol: Document 01/22/23 14:19 AW (Rec: 01/22/23 15:06 AW [id number]) Subjective Physical Therapy Visit Type Type Treatment Note Visit Start Time 13:40 Visit Stop Time 14:19 Total Visit Minutes 39 Notes Per ortho orders, pt may WBAT BLE in post-op shoes. PT selected forefoot offloading shoes. Pre-mobility VS: BP 193/85 HR 80 SpO2 92% on 2 lpm Post-mobility VS: BP 199/90 HR 77 SpO2 89% on 2 lpm Physical Therapy Visit Comments Patient Comments I just need to get moving however I can. Patient Goals Continue to move Therapy Pain Assessment Pain When Pain Assessed At Rest Pain Present Pain Present Denied Pain M4 PT-IP Mobility and Gait Start: 01/16/23 16:22 Freq: NEEDED Status: Active Protocol: Document 01/22/23 14:19 AW (Rec: 01/22/23 15:06 AW [id number]) PT-Bed Mobility Assessment Supine to Sit Supine to Sit Minimal Assistance,1 Person Assistance,Head of Bed Elevated,Bedrails Sit to Supine Sit to Supine Moderate Assistance,1 Person Assistance Scooting Scooting to Edge of Bed Minimal Assistance PT-Transfer Assessment Sit to and From Stand Sit to and from Stand Minimal Assistance,Moderate Assistance,2 Person Assistance ,Use of Upper Extremities Equipment Transfer Assistive Device Gait Belt,Front Wheeled Walker Transfers Transfer Destination Bed Transfer Technique sit <> stand Transfer Ability Level of Assist Moderate Assistance Comments Mobility Comments Pt used bed rails heavily to transition from semi-Fowlers to sitting EOB as PT provided min assist. In sitting, pt remarked how good it felt to be sitting up but also expressed fear of attempting to stand. PT fit pt with bilateral forefoot-offloading post op shoes and educated pt that she could WBAT with these shoes. Pt reluctant to attempt sit to stand with only one person assist. Bed height was raised and nursing provided 2nd person assist as pt stood mod A x 2 on first attempt. In standing, SAFEMAKER (3rd person) noted stool in pt's briefs. Pt stood ~1 minute while SAFEMAKER performed pericare before requesting to sit on the bed. She did not feel confident enough to transfer to chair even though christine sling had been prepped on the chair. Pt sat while nursing changed linens around her. Pt agreed to stand again, needing only min A x 2 this time (bed remained elevated). She took small steps with FWW toward HOB for improved positioning before sitting. Min A to elevate BLE to the bed. Gait Assessment Gait Gait Assistance Required: Moderate Assistance,1 Person Assist,2 Person Assist Distance (Feet) 2 Able to Maintain Weight Bearing Status Yes During Gait Assistive Devices Assistive Device Gait Belt,Front Wheeled Walker Factors Limiting Gait Function Factors Limiting Gait Function Decreased Activity Tolerance, Decreased Strength Comments Gait Comments Pt able to take several steps at bedside using FWW with offloading shoes donned. PT-Balance Assessment Sitting Balance and Reactions Static Sitting Balance Ability Good Dynamic Sitting Balance Ability Good Standing Balance and Reactions Static Standing Balance Ability Fair Dynamic Standing Balance Ability Poor Device Used FWW M5 PT-IP Objective Assessments Start: 01/16/23 16:22 Freq: NEEDED Status: Active Protocol: Document 01/16/23 14:10 AB (Rec: 01/16/23 16:36 AB [id number]) Orientation Orientation/Cognition Level of Alertness Alert Orientation Age Safety Awareness Decreased Safety Awareness Gross Range of Motion Lower Extremity ROM Assessment Within Functional Limits Strength Lower Extremity Strength Assessment Within Functional Limits Sensation Assessment Sensation Gross Sensation Right LE Impaired,Left LE Impaired Sensation Description Numbness Comments Sensation Comments has chronic neuropathy on BLE Other Assessments Other Other Assessments pt has L great toe pad wound M6 PT-IP Treatment Start: 01/16/23 16:22 Freq: NEEDED Status: Active Protocol: Document 01/22/23 14:19 AW (Rec: 01/22/23 15:06 AW [id number]) Physical Therapy Treatment Exercises Exercises Ankle Pumps,Quad Sets,Heel Slides Education Education Provided Precautions,Weight Bearing Status,Safety Brace Education Donning,Esmond,Patient Equipment Issued Equipment Type and Company Forefoot offloading shoes BLE from [facility] Other Treatments Other Treatment Performed Extensive education on WBAT * only while wearing offloading shoes* M7 PT-IP Assessment and Plan Start: 01/16/23 16:22 Freq: NEEDED Status: Active Protocol: Document 01/22/23 14:19 AW (Rec: 01/22/23 15:06 AW [id number]) PT Summary Assessment and Plan Summary Impairments Pain,Strength,Balance,Bed Mobility,Transfers,Gait, Activity Tolerance Progress Towards Goals Slow Progress due to Activity Tolerance Assessment Summary PT fit patient with forefoot offloading shoes per ortho orders so that she may WBAT. Pt needed slight increase in assist for bed mobility today but was able to stand at EOB 1 minute x 2 in offloading shoes with FWW. 2nd person is required for pt to feel comfortable with mobillity but suspect she may actually be able to stand and pivot with just one skilled professional. PT recommends christine transfers with nursing. Continue to recommend discharge to SNF for further rehab activities. Goals Bed Mobility Goal Minimal Assistance Transfer Goal Moderate Assistance,Front Wheeled Walker Gait Goal Moderate Assistance,Front Wheel Walker Gait Distance 25 Other Goals improve bed mobility , transfers CGA using FWW, ambulation min A using FWW 30 ft Days to Meet Goals 10 Frequency of Treatment Frequency Of Treatment Once a Day Treatment Plan Physical Therapy Treatment Plan Bed Mobility Training,Transfer Training,Gait Training, Therapeutic Exercise,Balance Retraining,Post Op Education, Hot or Cold Pack,Neuromuscular Re-ed,Manual Therapy Other Recommendations and Next Treatment Continued education on Focus weightbearing status. Work on standing tolerance and transfer to chair as pt is willing. Weight Bearing Status Weight Bearing Status Weight Bear as Tolerated Allowed Weight Bearing Amount (enter % WBAT in forefoot-offloading or #) (%) shoes ONLY Recommendations To Nursing Amount of Assist Needed 2 Person Assist,Total Assistance Discharge Recommendations PT Discharge Recommendations SNF Rehab Transportation Needs at Discharge Wheelchair/Cabulance,Stretcher /Ambulance
--- NOTE | 2023-01-22 17:14 | PM.PN.1 ---
Subjective Subjective Date Patient Seen: 01/22/23 Time Patient Seen: 08:00 Interval history: She denies any significant pain. She is still coughing and and oxygen drops with minimal activity. Exam Vital Signs (past 8 hours): - 01/22/23 10:00 01/22/23 11:57 01/22/23 11:57 Temperature Pulse Rate 64 69 Respiratory Rate 20 23 Blood Pressure 168/74 H Pulse Oximetry 92 90 L Oxygen Delivery Method Oxygen Flow Rate Fraction of Inspired Oxygen 01/22/23 12:00 01/22/23 16:11 01/22/23 13:47 Temperature Pulse Rate 67 79 79 Respiratory Rate 22 20 22 Blood Pressure Pulse Oximetry 89 L 92 89 L Oxygen Delivery Method Nasal Cannula Oxygen Flow Rate 3 Fraction of Inspired Oxygen 32 01/22/23 13:47 01/22/23 14:00 01/22/23 14:17 Temperature Pulse Rate 80 Respiratory Rate 23 Blood Pressure 193/85 H 199/90 H Pulse Oximetry 91 Oxygen Delivery Method Oxygen Flow Rate Fraction of Inspired Oxygen 01/22/23 14:17 01/22/23 14:28 01/22/23 14:28 Temperature Pulse Rate 78 75 Respiratory Rate 22 27 H Blood Pressure 183/84 H Pulse Oximetry 88 L 90 L Oxygen Delivery Method Oxygen Flow Rate Fraction of Inspired Oxygen 01/22/23 16:00 01/22/23 16:23 Temperature 96.5 F L Pulse Rate 72 Respiratory Rate 20 Blood Pressure Pulse Oximetry 94 Oxygen Delivery Method Oxygen Flow Rate Fraction of Inspired Oxygen Fraction of Inspired Oxygen 32 SaO2/FiO2 Ratio 287 Oxygen Delivery Method Nasal Cannula Oxygen Flow Rate 3 Const Other: GEN: ill-appearing CHEST: scattered anterior wheezes CV: irregularly irregular,, no M/R/G ABD: Soft, obese,NT/ND, EXTR: warm, well perfused, chronic venous stasis changes noted, wounds bandaged Objective Labs 01/22/23 04:30 01/22/23 04:30 Labs: Laboratory Results - last 24 hr 01/22/23 01/22/23 01/22/23 04:30 04:30 04:30 WBC 12.8 H RBC 3.96 L Hgb 11.7 L Hct 34.5 L MCV 87.1 MCH 29.5 MCHC 33.9 RDW 14.3 Plt Count 473 H Neut % (Auto) 79.4 H Lymph % (Auto) 13.3 L [place] % (Auto) 6.9 Eos % (Auto) 0.1 L Baso % (Auto) 0.3 Neut # (Auto) 52257 H Lymph # (Auto) 1700 [place] # (Auto) 900 Eos # (Auto) 0 Baso # (Auto) 0 PT 28.0 H INR 2.4 H Sodium 137 Potassium 4.0 Chloride 96 L Carbon Dioxide 34 H BUN 21 H Creatinine 0.57 Estimated GFR > 60 BUN/Creatinine Ratio 36.8 H Glucose 109 Calcium 8.5 PFSH Medical History Smoker Social History household members: none Smoking Status: Current every day smoker alcohol intake: never Assessment & Plan Assessment & Plan narrative: 1. New diagnosis afib with RVR. Improved. - TTE with normal EF, no wall motion abnormalities. -with phenytoin interactions, coumadin remains the best anticoagulant for her. Continue dosing per pharmacy. - required oral metoprolol increased to 150 mg BID, diltiazem PO with IV infusion, digoxin loaded IV and amiodarone IV loading. Rates now to 70s. With normal EF, stopped digoxin, continue metoprolol and oral dilt 120 mg BID. Stopped amiodarone 2. Abscess of great toe, right with RLE cellulitis and Strep bacteremia, present on admission. - Seen by Dr. Garcia and orthopedics team, now s/p I&D, non weight bearing per orders. - CT angio with runoff without any obvious PAD of b/l LE. - INR supratherapeutic on admission, taken off warfarin initially, now restarted, check inr daily - Meropenem initially for BC positive for G+ cocci, Gram negatives on wound culture. Wound culture with group G strep as well. Narrowed to Ceftriaxone 01/16. Will need 2 weeks of IV ceftriaxone for bacteremia until 01/30 - ortho gave recs for dressing changes - ortho monitoring for possible repeat debridement as outpatient 3. Acute on chronic respiratory failure with hypoxia, with acute diastolic heart failure and possible pneumonia - given IV lasix, now stopped - CXR on 01/21 with possible pneumonia - treat for pneumonia and possible COPD exacerbation as she has known COPD and significant smoking history -ordered for short course of prednisone, and scheduled nebs 4. HTN Clonidine, metoprolol, Lisinopril - grossly uncontrolled on admission, but also with pain. Has been a bit better and increasing rate control agents as noted above 5. Pulmonary embolism history: -now on coumadin per pharmacy further discussed above 6. Peripheral neuropathy: ? - continue pain control 7. GERD (gastroesophageal reflux disease) -PPI 8. Depression -Zoloft 9. Smoker -nicotine replacement prn, albuterol prn 10. Obesity -The patient is at much higher risk for medical and surgical complications because of their obesity. This increases the difficulty and complexity of medical and surgical interventions and increases the chances of poor outcomes such as morbidity and mortality. 11. ? seizure disorder -continue phenytoin dosing BID, level checked and was low at 4.2
[2023-01-22] MEDS: WARFARIN 1 MG TABLET 3 MG PO (17:35)
--- NOTE | 2023-01-22 19:15 | PM.PNPO.1 ---
Subjective Subjective Date Patient Seen: 01/22/23 Time Patient Seen: 08:30 Interval history: Patient is resting comfortably in bed this morning. Denies fever, chills. Still having significant pain to the lowerleg and toe. States pain medication takes the edge off. Discussed plan for dressing changes and continued antibiotics - she is thankful for the update. Exam Vital Signs (past 8 hours): - 01/22/23 11:57 01/22/23 11:57 01/22/23 12:00 Temperature Pulse Rate 69 67 Respiratory Rate 23 22 Blood Pressure 168/74 H Pulse Oximetry 90 L 89 L Oxygen Delivery Method Oxygen Flow Rate Fraction of Inspired Oxygen 01/22/23 16:11 01/22/23 13:47 01/22/23 13:47 Temperature Pulse Rate 79 79 Respiratory Rate 20 22 Blood Pressure 193/85 H Pulse Oximetry 92 89 L Oxygen Delivery Method Nasal Cannula Oxygen Flow Rate 3 Fraction of Inspired Oxygen 32 01/22/23 14:00 01/22/23 14:17 01/22/23 14:17 Temperature Pulse Rate 80 78 Respiratory Rate 23 22 Blood Pressure 199/90 H Pulse Oximetry 91 88 L Oxygen Delivery Method Oxygen Flow Rate Fraction of Inspired Oxygen 01/22/23 14:28 01/22/23 14:28 01/22/23 16:00 Temperature Pulse Rate 75 72 Respiratory Rate 27 H 20 Blood Pressure 183/84 H Pulse Oximetry 90 L 94 Oxygen Delivery Method Oxygen Flow Rate Fraction of Inspired Oxygen 01/22/23 16:23 Temperature 96.5 F L Pulse Rate Respiratory Rate Blood Pressure Pulse Oximetry Oxygen Delivery Method Oxygen Flow Rate Fraction of Inspired Oxygen Fraction of Inspired Oxygen 32 SaO2/FiO2 Ratio 287 Oxygen Delivery Method Nasal Cannula Oxygen Flow Rate 3 Narrative Exam Narrative: No significant change from physical exam done yesterday: Wound under the left great toe MTP joint, significant callus formation, no purulence but there is an obvious foot ulcer on the left.? The remainder of the left leg is fairly benign.? The right lower extremity shows erythema in the right marie and calf, there is no specific fluctuance or clinical suggestion of an abscess, the right great toe the packing is replaced (new as of last night per patient) there is a moderately large cavity which tracks to the IP joint, necrotic tissue on the dorsum of the toe, there is no obvious abscess, there was also a wound on volar aspect of the great toe. Both feet rewrapped with same bandages after exam today. Objective Labs 01/22/23 04:30 01/22/23 04:30 Labs: Laboratory Results - last 24 hr 01/22/23 01/22/23 01/22/23 04:30 04:30 04:30 WBC 12.8 H RBC 3.96 L Hgb 11.7 L Hct 34.5 L MCV 87.1 MCH 29.5 MCHC 33.9 RDW 14.3 Plt Count 473 H Neut % (Auto) 79.4 H Lymph % (Auto) 13.3 L [place] % (Auto) 6.9 Eos % (Auto) 0.1 L Baso % (Auto) 0.3 Neut # (Auto) 75230 H Lymph # (Auto) 1700 [place] # (Auto) 900 Eos # (Auto) 0 Baso # (Auto) 0 PT 28.0 H INR 2.4 H Sodium 137 Potassium 4.0 Chloride 96 L Carbon Dioxide 34 H BUN 21 H Creatinine 0.57 Estimated GFR > 60 BUN/Creatinine Ratio 36.8 H Glucose 109 Calcium 8.5 PFSH Medical History Smoker Social History household members: none Smoking Status: Current every day smoker alcohol intake: never Assessment & Plan Post-op Postoperative Procedures: Procedures Operation Date: 01/15/23 16:30 Actual Procedure Side Surgeon p Incision and Drainage great toe Right Herberth Garcia MD Postoperative day: 7 Postoperative status: marginal pain control Postoperative status narrative: Patient continues to have marginal pain control, elevated white count as inpatient. Postoperative plan narrative: Continue daily dressing changes. WBAT in postop shoe. Her white count continues to be slightly elevated, though it is downtrending. It is improved in comparison to admit her admission white count. Continue IV antibiotics. Needs wound care consult. We will continue to follow her. She may ultimately need additional revision surgery.
[2023-01-22] MEDS: BACLOFEN 10 MG TABLET 40 MG PO (21:02)
[2023-01-22] MEDS: SERTRALINE 50 MG TABLET 100 MG PO (21:03)
[2023-01-23] VITALS (9 sets, daily range): BP systolic 139–181; BP diastolic 65–87; PULSE 73–82; RESP 16–20; TEMP 35.2–36.8; O2SAT 91–93
[2023-01-23 05:28] LABS: Add Manual Diff / Slide Review NO; Basophils Absolute Auto 0 /uL (0-100); Basophils Percent Auto 0.4 % (0-2); Eosinophils Absolute Auto 0 /uL (0-450); Eosinophils Percent Auto 0.1 % (2-4); Hematocrit 32.3 % (36-46); Lymphocytes Absolute Auto 2000 /uL (1100-4500); Lymphocytes Percent Auto 16.9 % (25-40); Mean Corpuscular HGB Conc 33.9 % (30-36); Mean Corpuscular Hemoglobin 29.6 PG (26-34); Mean Corpuscular Volume 87.5 fL (80-100); Monocytes Absolute Auto 900 /uL (0-900); Monocytes Percent Auto 7.9 % (3-14); Neutrophils Absolute Auto 8900 /uL (1500-7000); Neutrophils Percent Auto 74.7 % (50-75); Platelet Count 463 X10^3/uL (150-400); Red Cell Distribution Width 14.3 % (11.6-14.8); White Blood Cell Count 11.9 X10^3/uL (4.5-11.0)
[2023-01-23 05:30] LABS: INR 2.2 (0.9-1.3); Prothrombin Time 25.5 SECONDS (10.1-12.7)
[2023-01-23 05:36] LABS: BUN Creatinine Ratio 35.5 (6-22); Blood Urea Nitrogen 22 mg/dL (7-17); Calcium 8.8 mg/dL (8.4-10.2); Carbon Dioxide 36 mmol/L (22-32); Chloride 96 mmol/L (98-107); Estimated Glomerular Filt Rate > 60 mL/min (>60); Glucose 107 mg/dL (80-110); HEMOLYSIS < 15 (0-50); Potassium 4.2 mmol/L (3.4-5.1); Sodium 135 mmol/L (137-145)
[2023-01-23] MEDS: OXYCODONE IR 10 MG TABLET PO ×5 (06:04→23:50)
[2023-01-23] MEDS: PANTOPRAZOLE DR 20 MG TABLET PO (06:04)
[2023-01-23] MEDS: ALBUTEROL/IPRATROPIUM 3 ML AMPUL INH ×3 (06:17→21:20)
--- NOTE | 2023-01-23 07:47 | PM.PNPO.1 ---
Subjective Subjective Date Patient Seen: 01/23/23 Time Patient Seen: 07:47 Interval history: Patient resting in bed states her pain is fine. Denies fever or chills. Exam Vital Signs (past 8 hours): - 01/23/23 00:00 01/23/23 04:00 01/23/23 06:17 Temperature 95.3 F L 97.8 F Pulse Rate 75 73 80 Respiratory Rate 18 18 18 Blood Pressure 162/65 H 162/87 H Pulse Oximetry 92 92 92 Oxygen Delivery Method Nasal Cannula Oxygen Flow Rate 4 4 4 Fraction of Inspired Oxygen 36 Fraction of Inspired Oxygen 36 SaO2/FiO2 Ratio 255 Oxygen Delivery Method Nasal Cannula Oxygen Flow Rate 4 Narrative Exam Narrative: 72-year-old female resting comfortably in bed in no apparent distress. Dressings are clean, dry and intact. Objective Labs 01/23/23 04:50 01/23/23 04:50 Labs: Laboratory Results - last 24 hr 01/23/23 01/23/23 01/23/23 04:50 04:50 04:50 WBC 11.9 H RBC 3.70 L Hgb 11.0 L Hct 32.3 L MCV 87.5 MCH 29.6 MCHC 33.9 RDW 14.3 Plt Count 463 H Neut % (Auto) 74.7 Lymph % (Auto) 16.9 L [place] % (Auto) 7.9 Eos % (Auto) 0.1 L Baso % (Auto) 0.4 Neut # (Auto) 8900 H Lymph # (Auto) 2000 [place] # (Auto) 900 Eos # (Auto) 0 Baso # (Auto) 0 PT 25.5 H INR 2.2 H Sodium 135 L Potassium 4.2 Chloride 96 L Carbon Dioxide 36 H BUN 22 H Creatinine 0.62 Estimated GFR > 60 BUN/Creatinine Ratio 35.5 H Glucose 107 Calcium 8.8 PFSH Medical History Smoker Social History household members: none Smoking Status: Current every day smoker alcohol intake: never Assessment & Plan Post-op Postoperative Procedures: Procedures Operation Date: 01/15/23 16:30 Actual Procedure Side Surgeon p Incision and Drainage great toe Right Herberth Garcia MD Postoperative status narrative: Status post irrigation debridement of right great toe by Dr. Garcia January 15, 2023 Postoperative plan: routine post-op care Postoperative plan narrative: Per Dr. Garcia patient will require wound care consult as well as a vascular consult due concerns of vascular compromise to bilateral lower extremities. Recommend podiatry consult for care left great toe as well as the ulcer she has on her left great toe. Daily dressing changes. Continue IV antibiotics Weightbearing as tolerated bilateral lower extremities in postop shoes Disposition per hospitalist to be determined
--- NOTE | 2023-01-23 08:59 | PT.IPTN ---
Current Diagnoses Nicotine dependence, unspecified, uncomplicated (01/14/23) Depression, unspecified (01/14/23) Polyneuropathy, unspecified (01/14/23) Essential (primary) hypertension (01/14/23) Other pulmonary embolism without acute cor pulmonale (01/14/23) Gastro-esophageal reflux disease without esophagitis (01/14/23) Cutaneous abscess of right foot (01/14/23) Cellulitis of right lower limb (01/14/23) Non-pressure chronic ulcer of other part of left foot with unspecified severity (01/14/23) Surgery Performed Operation Date: 01/15/23 16:30 Actual Procedures p Incision and Drainage great toe(Right) - Herberth Garcia MD Physical Therapy Treatment Note M2 PT-IP Current Condition Start: 01/16/23 16:22 Freq: NEEDED Status: Active Protocol: Document 01/16/23 14:10 AB (Rec: 01/16/23 16:36 AB [id number]) Physical Therapy Current Condition Current Condition Evaluation Date 01/16/23 Treatment Diagnosis R great toe infection s/p I&D; difficulty in walking Onset Date 01/14/23 M3 PT-IP Subjective Start: 01/16/23 16:22 Freq: NEEDED Status: Active Protocol: Document 01/23/23 09:21 TS (Rec: 01/23/23 09:57 TS [id number]) Subjective Physical Therapy Visit Type Type Treatment Note Visit Start Time 08:59 Visit Stop Time 09:21 Total Visit Minutes 22 Notes Per ortho orders, pt may WBAT BLE in post-op shoes. PT selected forefoot offloading shoes. Physical Therapy Visit Comments Patient Comments Pt reports wanting to get up to use toilet, reports being fearful of falling, agreeable to PT. Patient Goals Continue to move M4 PT-IP Mobility and Gait Start: 01/16/23 16:22 Freq: NEEDED Status: Active Protocol: Document 01/23/23 09:21 TS (Rec: 01/23/23 09:57 TS [id number]) PT-Transfer Assessment Sit to and From Stand Sit to and from Stand Maximum Assistance,2 Person Assistance,Use of Upper Extremities Equipment Transfer Assistive Device Gait Belt,Front Wheeled Walker Orthotic/Prosthetic Devices or Brace: No Comments Mobility Comments Pt found resting in chair, requesting to use toilet. Pt was provided cues for scooting forward to edge of chair SBA with BUE support on arms of chair. Post-op shoes donned before sit to stand. Pt attempted sit to stand x1 from chair with MaxA x2, cues were provided for BUEs pushing from arms of chair and weight forward, pt slipped forward in chair and was unable to get lift. Therapist thought it was unsafe to attmept to stand form chair another attempt, used christine to get pt to commode with nursing. Pt was left on commode, SENIOR QUALITY ANALYST attending to needs, RN was notified. Gait Assessment Comments Gait Comments Not on this attempt PT-Balance Assessment Sitting Balance and Reactions Static Sitting Balance Ability Good Dynamic Sitting Balance Ability Good Standing Balance and Reactions Device Used FWW M5 PT-IP Objective Assessments Start: 01/16/23 16:22 Freq: NEEDED Status: Active Protocol: Document 01/16/23 14:10 AB (Rec: 01/16/23 16:36 AB [id number]) Orientation Orientation/Cognition Level of Alertness Alert Orientation Age Safety Awareness Decreased Safety Awareness Gross Range of Motion Lower Extremity ROM Assessment Within Functional Limits Strength Lower Extremity Strength Assessment Within Functional Limits Sensation Assessment Sensation Gross Sensation Right LE Impaired,Left LE Impaired Sensation Description Numbness Comments Sensation Comments has chronic neuropathy on BLE Other Assessments Other Other Assessments pt has L great toe pad wound M6 PT-IP Treatment Start: 01/16/23 16:22 Freq: NEEDED Status: Active Protocol: Document 01/23/23 09:21 TS (Rec: 01/23/23 09:57 TS [id number]) Physical Therapy Treatment Education Education Provided Precautions,Weight Bearing Status,Safety Brace Education [place],Patient Equipment Issued Equipment Type and Company Forefoot offloading shoes BLE from [place] [employer] PT-IP Assessment and Plan Start: 01/16/23 16:22 Freq: NEEDED Status: Active Protocol: Document 01/23/23 09:21 TS (Rec: 01/23/23 09:57 TS [id number]) PT Summary Assessment and Plan Potential Rehabilitation Potential Fair Summary Impairments Pain,Strength,Balance,Bed Mobility,Transfers,Gait, Activity Tolerance Progress Towards Goals Slow Progress due to Medical Issues,Slow Progress due to Activity Tolerance Assessment Summary Pt continues to make slow progress with her mobility due to poor activity tolerance, fear of mobility, poor strength and ongoing medical issues. Pt requires max cueing for scooting in chair and for sit to stand. Pt attempted sit to stand from chair MaxA x2, pt could not get lift and slid forward in chair. Therapist recommended using christine to commode due to the chair being too low of a surface. Pt stood from higher surface in previous session. PT continues to recommend SNF rehab. Goals Bed Mobility Goal Minimal Assistance Transfer Goal Moderate Assistance,Front Wheeled Walker Gait Goal Moderate Assistance,Front Wheel Walker Gait Distance 25 Other Goals improve bed mobility , transfers CGA using FWW, ambulation min A using FWW 30 ft Days to Meet Goals 10 Frequency of Treatment Frequency Of Treatment Once a Day Treatment Plan Physical Therapy Treatment Plan Bed Mobility Training,Transfer Training,Gait Training, Therapeutic Exercise,Balance Retraining,Post Op Education, Hot or Cold Pack,Neuromuscular Re-ed,Manual Therapy Other Recommendations and Next Treatment Continued education on Focus weightbearing status. Work on standing tolerance and transfer to chair as pt is willing. Weight Bearing Status Weight Bearing Status Weight Bear as Tolerated Allowed Weight Bearing Amount (enter % WBAT in forefoot-offloading or #) (%) shoes ONLY Recommendations To Nursing Amount of Assist Needed 2 Person Assist,Mechanical Lift Discharge Recommendations PT Discharge Recommendations SNF Rehab Transportation Needs at Discharge Wheelchair/Cabulance,Stretcher /Ambulance
[2023-01-23] MEDS: SODIUM CHLORIDE 0.9% FLUSH 10 ML IV ×3 (10:03→21:02)
[2023-01-23] MEDS: cefTRIAXone 2,000 MG in SODIUM CHLORIDE 0.9% 100 ML 200 MG IV (10:03)
[2023-01-23] MEDS: predniSONE 20 MG TABLET 40 MG PO (10:18)
[2023-01-23] MEDS: lisinopriL 20 MG TABLET 40 MG PO (10:19)
[2023-01-23] MEDS: dilTIAZem CD 120 MG CAP PO ×2 (10:19→21:00)
[2023-01-23] MEDS: AZITHROMYCIN 250 MG TABLET 500 MG PO (10:19)
[2023-01-23] MEDS: PHENYTOIN ER 100 MG CAPSULE 200 MG PO ×2 (10:19→21:01)
[2023-01-23] MEDS: METOPROLOL IR 50 MG TABLET 200 MG PO ×2 (10:19→21:01)
[2023-01-23 11:21] LABS: Adenovirus Not Detected (Not Detect); B. parapertussis Not Detected (Not Detecte); Bordetella pertussis Not Detected (Not Detecte); Chlamydophila pneumoniae Not Detected (Not Detect); Coronavirus 229E Not Detected (Not Detect); Coronavirus HKU1 Not Detected (Not Detect); Coronavirus NL 63 Not Detected (Not Detect); Coronavirus OC43 Not Detected (Not Detect); Human Metapneumovirus Not Detected (Not Detect); Human Rhinovirus/Enterovirus Not Detected (Not Detect); Influenza A Not Detected (Not Detect); Influenza B Not Detected (Not Detect); Mycoplasma pneumoniae Not Detected (Not Detect); Parainfluenza Virus 1 Not Detected (Not Detect); Parainfluenza Virus 2 Not Detected (Not Detect); Parainfluenza Virus 3 Not Detected (Not Detect); Parainfluenza Virus 4 Not Detected (Not Detect); Respiratory Syncytial Virus Not Detected (Not Detect); SARS- CoV-2 Not Detected (Not Detecte)
--- NOTE | 2023-01-23 12:42 | CM.DPC ---
DCP Cont: Met briefly with patient, she was sitting up in her chair, alert. Patient feeling sad. Asked her and confirmed if she is willing to go to [facility], for she had mentioned wanting to go to [facility]. Did speak to Sheryl at [facility] today, and asked her if she could review. Sheryl is aware that the plan is for [facility], and knows the [employer] nurse. Stated that she would contact her first, since patient is getting a one time agreement with [facility]. In the meantime, this DC [employer] was planning on speaking to patient again about plan. Sheryl called back, and indicated that she spoke to Kristin, the [facility] nurse who authed patient, and confirmed that she was authed for one time agreement, and [facility] is willing to accept contract. Spoke to patient again, and is willing to go to [place]. Discussed BLS transport, and the potential cost that she may receive, she is aware, knows that this is the only way she can be transported, does not feel comfortable sitting up in a wheelchair. Patient did indicate, not sure she can return to her apartment in [place]. Checked on her insurance, her original face sheet notes [employer], but she does not have this, she has [facility]. Called [facility], does not have record of patient having any Medicaid. Did briefly speak to patient about assisted living facilities, and gave her an idea of the cost. If patient goes to [facility], may have the option of going to [place] assisted living facility. P: DCP to continue follow, will stick with plan of [facility] [place]. Updated [place], since patient is not ready for discharge again due to oxygen needs. [place] indicated that she may need to contact [employer] again to see if auth is still good. BLS was again cancelled, and scheduled for tomorrow at 1100 if stable. Elizabeth Montoya, RN/[employer] Machine [employer]pper [employer]eder
--- NOTE | 2023-01-23 15:14 | PM.PN.1 ---
Subjective Subjective Date Patient Seen: 01/23/23 Time Patient Seen: 08:00 Exam Vital Signs (past 8 hours): - 01/23/23 09:52 01/23/23 13:28 01/23/23 08:00 Temperature 98.2 F 98 F Pulse Rate 82 80 Respiratory Rate 18 16 Blood Pressure 140/79 139/66 Pulse Oximetry 93 92 Oxygen Delivery Method Nasal Cannula Oxygen Flow Rate 3 3 01/23/23 15:06 Temperature Pulse Rate 74 Respiratory Rate 16 Blood Pressure Pulse Oximetry 93 Oxygen Delivery Method Room Air Oxygen Flow Rate Fraction of Inspired Oxygen 36 SaO2/FiO2 Ratio 255 Oxygen Delivery Method Room Air Oxygen Flow Rate 3 Const Other: GEN: ill-appearing CHEST: scattered anterior wheezes CV: irregularly irregular,, no M/R/G ABD: Soft, obese,NT/ND, EXTR: warm, well perfused, chronic venous stasis changes noted, wounds bandaged Objective Labs 01/23/23 04:50 01/23/23 04:50 Labs: Laboratory Results - last 24 hr 01/23/23 01/23/23 01/23/23 04:50 04:50 04:50 WBC 11.9 H RBC 3.70 L Hgb 11.0 L Hct 32.3 L MCV 87.5 MCH 29.6 MCHC 33.9 RDW 14.3 Plt Count 463 H Neut % (Auto) 74.7 Lymph % (Auto) 16.9 L [place] % (Auto) 7.9 Eos % (Auto) 0.1 L Baso % (Auto) 0.4 Neut # (Auto) 8900 H Lymph # (Auto) 2000 [place] # (Auto) 900 Eos # (Auto) 0 Baso # (Auto) 0 PT 25.5 H INR 2.2 H Sodium 135 L Potassium 4.2 Chloride 96 L Carbon Dioxide 36 H BUN 22 H Creatinine 0.62 Estimated GFR > 60 BUN/Creatinine Ratio 35.5 H Glucose 107 Calcium 8.8 Chlamy pneumoniae PCR Adenovirus (PCR) B. pertussis DNA (PCR) B.parapertussis DNA PCR Coronavirus OC43 (PCR) Coronavirus HKU1 (PCR) Coronavirus 229E (PCR) SARS-CoV-2 (PCR) Coronavirus NL63 (PCR) Human Metapneumovir PCR Influenza Type A (PCR) Influenza Type B (PCR) M. pneumoniae (PCR) Parainfluenza 1 (PCR) Parainfluenza 2 (PCR) Parainfluenza 3 (PCR) Parainfluenza 4 (PCR) RSV (PCR) Entero/Rhino (PCR) 01/23/23 08:00 WBC RBC Hgb Hct MCV MCH MCHC RDW Plt Count Neut % (Auto) Lymph % (Auto) [place] % (Auto) Eos % (Auto) Baso % (Auto) Neut # (Auto) Lymph # (Auto) [place] # (Auto) Eos # (Auto) Baso # (Auto) PT INR Sodium Potassium Chloride Carbon Dioxide BUN Creatinine Estimated GFR BUN/Creatinine Ratio Glucose Calcium Chlamy pneumoniae PCR Not detected Adenovirus (PCR) Not detected B. pertussis DNA (PCR) Not detected B.parapertussis DNA PCR Not detected Coronavirus OC43 (PCR) Not detected Coronavirus HKU1 (PCR) Not detected Coronavirus 229E (PCR) Not detected SARS-CoV-2 (PCR) Not detected Coronavirus NL63 (PCR) Not detected Human Metapneumovir PCR Not detected Influenza Type A (PCR) Not detected Influenza Type B (PCR) Not detected M. pneumoniae (PCR) Not detected Parainfluenza 1 (PCR) Not detected Parainfluenza 2 (PCR) Not detected Parainfluenza 3 (PCR) Not detected Parainfluenza 4 (PCR) Not detected RSV (PCR) Not detected Entero/Rhino (PCR) Not detected PFS Medical History Smoker Social History household members: none Smoking Status: Current every day smoker alcohol intake: never Assessment & Plan Assessment & Plan narrative: 1. New diagnosis afib with RVR. Improved. - TTE with normal EF, no wall motion abnormalities. -with phenytoin interactions, coumadin remains the best anticoagulant for her. Continue dosing per pharmacy. - required oral metoprolol increased to 150 mg BID, diltiazem PO with IV infusion, digoxin loaded IV and amiodarone IV loading. Rates now to 70s. With normal EF, stopped digoxin, continue metoprolol and oral dilt 120 mg BID. Stopped amiodarone 2. Abscess of great toe, right with RLE cellulitis and Strep bacteremia, present on admission. - Seen by Dr. Garcia and orthopedics team, now s/p I&D, non weight bearing per orders. - CT angio with runoff without any obvious PAD of b/l LE. - INR supratherapeutic on admission, taken off warfarin initially, now restarted, check inr daily - Meropenem initially for BC positive for G+ cocci, Gram negatives on wound culture. Wound culture with group G strep as well. Narrowed to Ceftriaxone 01/16. Will need 2 weeks of IV ceftriaxone for bacteremia until 01/30 - ortho gave recs for dressing changes - ortho monitoring for possible repeat debridement as outpatient 3. Acute on chronic respiratory failure with hypoxia, with acute diastolic heart failure and possible pneumonia - given IV lasix, now stopped - CXR on 01/21 with possible pneumonia - treat for pneumonia and possible COPD exacerbation as she has known COPD and significant smoking history -ordered for short course of prednisone, and scheduled nebs -if not improved 01/24 would reimage lungs 4. HTN Clonidine, metoprolol, Lisinopril - grossly uncontrolled on admission, but also with pain. Has been a bit better and increasing rate control agents as noted above 5. Pulmonary embolism history: -now on coumadin per pharmacy further discussed above 6. Peripheral neuropathy: ? - continue pain control 7. GERD (gastroesophageal reflux disease) -PPI 8. Depression -Zoloft 9. Smoker -nicotine replacement prn, albuterol prn 10. Obesity -The patient is at much higher risk for medical and surgical complications because of their obesity. This increases the difficulty and complexity of medical and surgical interventions and increases the chances of poor outcomes such as morbidity and mortality. 11. ? seizure disorder -continue phenytoin dosing BID, level checked and was low at 4.2
[2023-01-23] MEDS: WARFARIN 1 MG TABLET 3 MG PO (16:57)
[2023-01-23] MEDS: SERTRALINE 50 MG TABLET 100 MG PO (21:01)
[2023-01-23] MEDS: NYSTATIN CREAM 30 GM 1 APPLIC TOP (21:01)
[2023-01-23] MEDS: BACLOFEN 10 MG TABLET 40 MG PO (21:01)
[2023-01-24] VITALS (9 sets, daily range): BP systolic 142–178; BP diastolic 63–74; PULSE 67–82; RESP 16–18; TEMP 35.8–36.6; O2SAT 91–94
[2023-01-24 05:12] LABS: Add Manual Diff / Slide Review NO; Basophils Absolute Auto 100 /uL (0-100); Eosinophils Absolute Auto 0 /uL (0-450); Hematocrit 32.6 % (36-46); Hemoglobin 10.9 g/dL (12.0-16.0); Lymphocytes Absolute Auto 2700 /uL (1100-4500); Lymphocytes Percent Auto 20.1 % (25-40); Mean Corpuscular HGB Conc 33.6 % (30-36); Mean Corpuscular Hemoglobin 29.5 PG (26-34); Mean Corpuscular Volume 87.8 fL (80-100); Monocytes Absolute Auto 1000 /uL (0-900); Monocytes Percent Auto 7.3 % (3-14); Neutrophils Absolute Auto 9500 /uL (1500-7000); Neutrophils Percent Auto 71.6 % (50-75); Platelet Count 469 X10^3/uL (150-400); Red Blood Cell Count 3.71 X10^6/uL (4.0-5.2); Red Cell Distribution Width 14.6 % (11.6-14.8); White Blood Cell Count 13.2 X10^3/uL (4.5-11.0)
[2023-01-24 05:13] LABS: Prothrombin Time 23.4 SECONDS (10.1-12.7)
--- NOTE | 2023-01-24 05:24 | PC.NURSE ---
BP 178/74. Notified attending, no new orders.
[2023-01-24 05:25] LABS: BUN Creatinine Ratio 37.1 (6-22); Blood Urea Nitrogen 26 mg/dL (7-17); Calcium 8.6 mg/dL (8.4-10.2); Carbon Dioxide 35 mmol/L (22-32); Chloride 97 mmol/L (98-107); Estimated Glomerular Filt Rate > 60 mL/min (>60); Glucose 101 mg/dL (80-110); HEMOLYSIS < 15 (0-50); Potassium 4.1 mmol/L (3.4-5.1); Sodium 135 mmol/L (137-145)
[2023-01-24] MEDS: PANTOPRAZOLE DR 20 MG TABLET PO (05:52)
[2023-01-24] MEDS: ALBUTEROL/IPRATROPIUM 3 ML AMPUL INH ×4 (08:00→19:22)
--- NOTE | 2023-01-24 08:46 | PM.PN.1 ---
Subjective Subjective Interval history: Breathing feels better. Some right leg pain. No nausea. No overnight events. Exam Vital Signs (past 8 hours): - 01/24/23 04:00 01/24/23 08:04 Temperature 97.5 F L Pulse Rate 67 Respiratory Rate 18 Blood Pressure 178/74 H Pulse Oximetry 91 91 Oxygen Delivery Method Nasal Cannula Oxygen Flow Rate 3 3 Fraction of Inspired Oxygen 32 SaO2/FiO2 Ratio 255 Oxygen Delivery Method Nasal Cannula Oxygen Flow Rate 3 Narrative Exam Narrative: NAD, oriented and appropriate. Lungs clear, breathing effort normal. CV regular with systolic murmur. Abdomen non-tender Right leg red, warm and swollen. Both feet wrapped. Objective Imaging Chest x-ray: Radiologist's impression: MPRESSION:? Ill-defined peripheral bilateral hazy opacities is concerning for atypical infection.? ? Dictated by: Julian Gonsalez M.D. on 01/21/2023 at 8:34 ? ? Echo: Radiologist's impression: Left Ventricle: The left ventricle is normal in size and wall thickness. The ejection fraction is estimated to be 60-65%. Diastolic function could not be accurately assessed due to atrial fibrillation. Right Ventricle: The right ventricle grossly appears normal in size with probable normal systolic function. Atria: The left atrium appears dilated. The right atrium grossly appears normal in size. There is no Doppler evidence for an interatrial shunt. Mitral Valve: There is moderate mitral annular calcification. The mitral valve leaflets are mildly calcified. There is no mitral regurgitation noted. Aortic Valve: The aortic valve is not well visualized. The aortic valve opens well. There is no aortic valve stenosis. No aortic regurgitation is present. Tricuspid Valve: The tricuspid valve is not well visualized. Pulmonary artery pressures cannot be estimated because of the lack of a measurable TR jet velocity. Pulmonic Valve: The pulmonic valve is not well visualized. Great Vessels: The aortic root is normal size. The dimensions of the ascending aorta are normal. The IVC is of normal diameter and collapses greater than 50% with a sniff. This suggests a low right atrial pressure of 3 mm Hg. Pericardium/ Pleura There is no pericardial effusion. There is no pleural effusion. Labs 01/24/23 04:39 01/24/23 04:39 Labs: Laboratory Results - last 24 hr 01/23/23 01/24/23 01/24/23 08:00 04:39 04:39 WBC RBC Hgb Hct MCV MCH MCHC RDW Plt Count Neut % (Auto) Lymph % (Auto) [place] % (Auto) Eos % (Auto) Baso % (Auto) Neut # (Auto) Lymph # (Auto) [place] # (Auto) Eos # (Auto) Baso # (Auto) PT 23.4 H INR 2.0 H Sodium 135 L Potassium 4.1 Chloride 97 L Carbon Dioxide 35 H BUN 26 H Creatinine 0.70 Estimated GFR > 60 BUN/Creatinine Ratio 37.1 H Glucose 101 Calcium 8.6 Chlamy pneumoniae PCR Not detected Adenovirus (PCR) Not detected B. pertussis DNA (PCR) Not detected B.parapertussis DNA PCR Not detected Coronavirus OC43 (PCR) Not detected Coronavirus HKU1 (PCR) Not detected Coronavirus 229E (PCR) Not detected SARS-CoV-2 (PCR) Not detected Coronavirus NL63 (PCR) Not detected Human Metapneumovir PCR Not detected Influenza Type A (PCR) Not detected Influenza Type B (PCR) Not detected M. pneumoniae (PCR) Not detected Parainfluenza 1 (PCR) Not detected Parainfluenza 2 (PCR) Not detected Parainfluenza 3 (PCR) Not detected Parainfluenza 4 (PCR) Not detected RSV (PCR) Not detected Entero/Rhino (PCR) Not detected 01/24/23 04:39 WBC 13.2 H RBC 3.71 L Hgb 10.9 L Hct 32.6 L MCV 87.8 MCH 29.5 MCHC 33.6 RDW 14.6 Plt Count 469 H Neut % (Auto) 71.6 Lymph % (Auto) 20.1 L [place] % (Auto) 7.3 Eos % (Auto) 0.0 L Baso % (Auto) 1.0 Neut # (Auto) 9500 H Lymph # (Auto) 2700 [place] # (Auto) 1000 H Eos # (Auto) 0 Baso # (Auto) 100 PT INR Sodium Potassium Chloride Carbon Dioxide BUN Creatinine Estimated GFR BUN/Creatinine Ratio Glucose Calcium Chlamy pneumoniae PCR Adenovirus (PCR) B. pertussis DNA (PCR) B.parapertussis DNA PCR Coronavirus OC43 (PCR) Coronavirus HKU1 (PCR) Coronavirus 229E (PCR) SARS-CoV-2 (PCR) Coronavirus NL63 (PCR) Human Metapneumovir PCR Influenza Type A (PCR) Influenza Type B (PCR) M. pneumoniae (PCR) Parainfluenza 1 (PCR) Parainfluenza 2 (PCR) Parainfluenza 3 (PCR) Parainfluenza 4 (PCR) RSV (PCR) Entero/Rhino (PCR) [facility] Medical History Smoker Social History household members: none Smoking Status: Current every day smoker alcohol intake: never Assessment & Plan Assessment & Plan narrative: 1. New Afib with RVR. Improved and rate controlled. ?- TTE with normal EF, no wall motion abnormalities. ?- with phenytoin interactions, coumadin remains the best anticoagulant for her. Continue dosing per pharmacy. ?- Stopped digoxin. - stopped amiodarone. - continue metoprolol and oral dilt 120 mg BID. 2. Abscess of great toe, right with RLE cellulitis and Strep bacteremia, present on admission. - Seen by Dr. Garcia and orthopedics team, now s/p I&D, non weight bearing per orders. - CT angio with runoff without any obvious PAD. - INR supratherapeutic on admission, taken off warfarin initially, now restarted, check inr daily - Meropenem initially for BC positive for G+ cocci, Gram negatives on wound culture. Wound culture with group G strep as well. Narrowed to Ceftriaxone 01/16. Will need 2 weeks of IV ceftriaxone for bacteremia until 01/30 - ortho gave recs for dressing changes - ortho monitoring for possible repeat debridement as outpatient 3. Strep bacteremia, new and active. - ceftriaxone to 01/30. 4. Acute hypoxia, with acute diastolic heart failure and possible pneumonia, new and active. ?- given IV lasix, now stopped ?- CXR on 01/21 with possible pneumonia ?- treat for pneumonia and possible COPD exacerbation as she has known COPD and significant smoking history ?- ordered for short course of prednisone, and scheduled nebs - repeat CXR today. 4. HTN - on Clonidine, metoprolol, Lisinopril - follow and titrate as needed. 5. Remote Pulmonary embolism.: - now on coumadin per pharmacy further discussed above 6. Peripheral neuropathy, POA and stable. ? - continue pain control 7. GERD (gastroesophageal reflux disease), POA and stable. - PPI 8. Depression, POA and stable. - Zoloft 9. Smoker, POA and stable. -nicotine replacement prn, albuterol prn 10. Obesity, POA and stable. -The patient is at much higher risk for medical and surgical complications because of their obesity.? This increases the difficulty and complexity of medical and surgical interventions and increases the chances of poor outcomes such as morbidity and mortality. 11. Possible seizure disorder, POA and stable ?-continue phenytoin dosing BID, level checked and was low at 4.2 Time Spent With Patient Time with patient: 30 to 49 minutes with 50% spent counseling/coordinating care
--- NOTE | 2023-01-24 09:32 | DI.RAD.S_ITS ---
PROCEDURE: XR CHEST 1V INDICATIONS: dyspnea TECHNIQUE: One view of the chest was acquired. COMPARISON: [facility], CR, XR CHEST 1V, 01/21/2023, 9:11. [facility], CR, XR CHEST 1V, 01/18/2023, 8:25. FINDINGS: Surgical changes and devices: None. Lungs and pleura: Hazy opacity in the right apex is again noted versus overlying bone. Peripheral hazy opacities are less conspicuous today's exam. No pleural effusions or pneumothorax. Mediastinum: Mediastinal contours appear normal. Heart size is enlarged, stable. Bones and chest wall: No suspicious bony lesions. Overlying soft tissues appear unremarkable. IMPRESSION: Hazy opacity in the right apex is again noted versus overlying bone. Ill-defined peripheral hazy opacities are less conspicuous on today's exam. No pleural effusion or pneumothorax. Dictated by: Hood Quintana M.D. on 01/24/2023 at 10:31 Approved by: Hood Quintana M.D. on 01/24/2023 at 10:33
[2023-01-24] MEDS: SODIUM CHLORIDE 0.9% FLUSH 10 ML IV ×2 (09:50→21:17)
[2023-01-24] MEDS: cefTRIAXone 2,000 MG in SODIUM CHLORIDE 0.9% 100 ML 200 MG IV (09:50)
[2023-01-24] MEDS: AZITHROMYCIN 250 MG TABLET 500 MG PO (09:51)
[2023-01-24] MEDS: dilTIAZem CD 120 MG CAP PO ×2 (09:52→21:15)
[2023-01-24] MEDS: lisinopriL 20 MG TABLET 40 MG PO (09:52)
[2023-01-24] MEDS: predniSONE 20 MG TABLET 40 MG PO (09:52)
[2023-01-24] MEDS: METOPROLOL IR 50 MG TABLET 200 MG PO ×2 (09:52→21:14)
[2023-01-24] MEDS: NYSTATIN CREAM 30 GM 1 APPLIC TOP ×2 (09:53→21:16)
[2023-01-24] MEDS: PHENYTOIN ER 100 MG CAPSULE 200 MG PO ×2 (10:02→21:16)
[2023-01-24] MEDS: OXYCODONE IR 10 MG TABLET PO ×4 (10:07→20:07)
--- NOTE | 2023-01-24 10:15 | PT.IPTN ---
Current Diagnoses Nicotine dependence, unspecified, uncomplicated (01/14/23) Depression, unspecified (01/14/23) Polyneuropathy, unspecified (01/14/23) Essential (primary) hypertension (01/14/23) Other pulmonary embolism without acute cor pulmonale (01/14/23) Gastro-esophageal reflux disease without esophagitis (01/14/23) Cutaneous abscess of right foot (01/14/23) Cellulitis of right lower limb (01/14/23) Non-pressure chronic ulcer of other part of left foot with unspecified severity (01/14/23) Surgery Performed Operation Date: 01/15/23 16:30 Actual Procedures p Incision and Drainage great toe(Right) - Herberth Garcia MD Physical Therapy Treatment Note M2 PT-IP Current Condition Start: 01/16/23 16:22 Freq: NEEDED Status: Active Protocol: Document 01/16/23 14:10 AB (Rec: 01/16/23 16:36 AB [id number]) Physical Therapy Current Condition Current Condition Evaluation Date 01/16/23 Treatment Diagnosis R great toe infection s/p I&D; difficulty in walking Onset Date 01/14/23 M3 PT-IP Subjective Start: 01/16/23 16:22 Freq: NEEDED Status: Active Protocol: Document 01/24/23 11:16 TS (Rec: 01/24/23 11:32 TS [id number]) Subjective Physical Therapy Visit Type Type Treatment Note Visit Start Time 10:15 Visit Stop Time 10:55 Total Visit Minutes 40 Notes Per ortho orders, pt may WBAT BLE in post-op shoes. PT selected forefoot offloading shoes. Number of CARPET TILE LAYER Visits 2 Physical Therapy Visit Comments Patient Comments Pt agreeable to PT. Patient Goals Continue to move M4 PT-IP Mobility and Gait Start: 01/16/23 16:22 Freq: NEEDED Status: Active Protocol: Document 01/24/23 11:16 TS (Rec: 01/24/23 11:32 TS [id number]) PT-Bed Mobility Assessment Supine to Sit Supine to Sit Contact Guard Assistance,1 Person Assistance,Head of Bed Elevated,Bedrails Scooting Scooting to Edge of Bed Contact Guard Assistance PT-Transfer Assessment Sit to and From Stand Sit to and from Stand Moderate Assistance,2 Person Assistance,Use of Upper Extremities Equipment Transfer Assistive Device Gait Belt,Front Wheeled Walker Orthotic/Prosthetic Devices or Brace: No Transfers Transfer Destination Chair Transfer Technique Stand Step Pivot Transfer Ability Level of Assist Moderate Assistance Comments Mobility Comments Pt found resting in bed, agreeable to PT. She performed supine to sit CGA with HOB elevated 60D, heavy use of handrails to come into sitting , pt brought LEs to EOB. Pt scooted to EOB CGA with some difficuulty, used BUE support on bed, required max cues for scooting. Pt sitting EOB, required MaxA for donning of post-op shoe. She performed sit to stand x1 ModA x2 for stand step pivot transfer to chair with ModA x1, cues were provided for walking back on heels for improved gait/ balance due to forefoot offloading shoe. Pt sat in chair, was provided cues for reaching back to arms of chair for slow control into sitting . Pt was left in chair with call light in reach, all needs met, RN notified. Gait Assessment Gait Gait Assistance Required: Moderate Assistance,1 Person Assist Distance (Feet) 2 Able to Maintain Weight Bearing Status Yes During Gait Assistive Devices Assistive Device Gait Belt,Front Wheeled Walker Orthotic/Prosthetic Devices or Brace: No Gait Deviations General Gait Pattern Ataxic,Decreased Stride Length ,Decreased Feet Clearance,Step -to Gait Factors Limiting Gait Function Factors Limiting Gait Function Decreased Activity Tolerance, Decreased Strength Comments Gait Comments Used bariatric FWW. See mobility comments. PT-Balance Assessment Sitting Balance and Reactions Static Sitting Balance Ability Good Dynamic Sitting Balance Ability Good Standing Balance and Reactions Static Standing Balance Ability Fair Dynamic Standing Balance Ability Poor Device Used FWW M5 PT-IP Objective Assessments Start: 01/16/23 16:22 Freq: NEEDED Status: Active Protocol: Document 01/16/23 14:10 AB (Rec: 01/16/23 16:36 AB [id number]) Orientation Orientation/Cognition Level of Alertness Alert Orientation Age Safety Awareness Decreased Safety Awareness Gross Range of Motion Lower Extremity ROM Assessment Within Functional Limits Strength Lower Extremity Strength Assessment Within Functional Limits Sensation Assessment Sensation Gross Sensation Right LE Impaired,Left LE Impaired Sensation Description Numbness Comments Sensation Comments has chronic neuropathy on BLE Other Assessments Other Other Assessments pt has L great toe pad wound M6 PT-IP Treatment Start: 01/16/23 16:22 Freq: NEEDED Status: Active Protocol: Document 01/24/23 11:16 TS (Rec: 01/24/23 11:32 TS [id number]) Physical Therapy Treatment Education Education Provided Precautions,Weight Bearing Status,Safety Brace Education [place],Patient Equipment Issued Equipment Type and Company Forefoot offloading shoes BLE from [place] [id number] PT-IP Assessment and Plan Start: 01/16/23 16:22 Freq: NEEDED Status: Active Protocol: Document 01/24/23 11:16 TS (Rec: 01/24/23 11:32 TS [id number]) PT Summary Assessment and Plan Potential Rehabilitation Potential Fair Summary Impairments Pain,Strength,Balance,Bed Mobility,Transfers,Gait, Activity Tolerance Progress Towards Goals Slow Progress due to Medical Issues,Slow Progress due to Activity Tolerance Assessment Summary Pt made some progress this morning but remains limited by activity tolerance and ongoing medical issues. She performed bed mobility CGA and heavy use of handrail assist. She performed sit to stand x1 ModA x2 with FWW and forefoot offloading shoes donned. She progressed her ambulation to stand step pivot transfer to chair with ModA x1, pt followed cues well for walking back on heels with post-op shoe. PT continues to recommend SNF to progress functional mobility and activity tolerance. Goals Bed Mobility Goal Minimal Assistance Transfer Goal Moderate Assistance,Front Wheeled Walker Gait Goal Moderate Assistance,Front Wheel Walker Gait Distance 25 Other Goals improve bed mobility , transfers CGA using FWW, ambulation min A using FWW 30 ft Days to Meet Goals 10 Frequency of Treatment Frequency Of Treatment Once a Day Treatment Plan Physical Therapy Treatment Plan Bed Mobility Training,Transfer Training,Gait Training, Therapeutic Exercise,Balance Retraining,Post Op Education, Hot or Cold Pack,Neuromuscular Re-ed,Manual Therapy Other Recommendations and Next Treatment Work on standing tolerance and Focus transfer to chair as pt is willing. Progress gait. Weight Bearing Status Weight Bearing Status Weight Bear as Tolerated Allowed Weight Bearing Amount (enter % WBAT in forefoot-offloading or #) (%) shoes ONLY Recommendations To Nursing Amount of Assist Needed 2 Person Assist,Mechanical Lift Discharge Recommendations PT Discharge Recommendations SNF Rehab Transportation Needs at Discharge Wheelchair/Cabulance,Stretcher /Ambulance
--- NOTE | 2023-01-24 12:37 | P.PN_ITS ---
Subjective Subjective Date Patient Seen: 01/24/23 Time Patient Seen: 12:38 Interval history: Patient is sitting up today and states that pain is improved. She is looking forward to leaving the hospital. Denies fever, chills, nausea, vomiting. Exam Vital Signs (past 8 hours): - 01/24/23 08:04 01/24/23 08:00 01/24/23 11:29 Temperature 97.8 F Pulse Rate 69 Respiratory Rate 16 Blood Pressure 151/63 H Pulse Oximetry 91 94 Oxygen Delivery Method Nasal Cannula Nasal Cannula Oxygen Flow Rate 3 3 01/24/23 10:00 01/24/23 12:00 Temperature 96.6 F L Pulse Rate 69 Respiratory Rate 16 Blood Pressure 151/65 H Pulse Oximetry 91 Oxygen Delivery Method Nasal Cannula Oxygen Flow Rate 3 Fraction of Inspired Oxygen 32 SaO2/FiO2 Ratio 255 Oxygen Delivery Method Nasal Cannula Oxygen Flow Rate 3 Narrative Exam Narrative: Pleasant 72 year old female. Awake, alert, oriented. Bilateral foot/toe rosie ssings intact marked 01/23/23. Right toe packing removed and replaced with new packing to examine. No significant changes in toe condition today: Wound under the left great toe MTP joint, significant callus formation, no purulence but there is an obvious foot ulcer on the left.? The remainder of the left leg is fairly benign.? The right lower extremity shows erythema in the right marie and calf that is improving, there is no specific fluctuance or clinical suggestion of an abscess, moderately large cavity the the dorsum of the left great toe which tracks to the IP joint, necrotic tissue on the dorsum of the toe, there is no obvious abscess, there was also a wound on volar aspect of the great toe. Objective Labs 01/24/23 04:39 01/24/23 04:39 Labs: Laboratory Results - last 24 hr 01/24/23 01/24/23 01/24/23 04:39 04:39 04:39 WBC 13.2 H RBC 3.71 L Hgb 10.9 L Hct 32.6 L MCV 87.8 MCH 29.5 MCHC 33.6 RDW 14.6 Plt Count 469 H Neut % (Auto) 71.6 Lymph % (Auto) 20.1 L Pender % (Auto) 7.3 Eos % (Auto) 0.0 L Baso % (Auto) 1.0 Neut # (Auto) 9500 H Lymph # (Auto) 2700 Pender # (Auto) 1000 H Eos # (Auto) 0 Baso # (Auto) 100 PT 23.4 H INR 2.0 H Sodium 135 L Potassium 4.1 Chloride 97 L Carbon Dioxide 35 H BUN 26 H Creatinine 0.70 Estimated GFR > 60 BUN/Creatinine Ratio 37.1 H Glucose 101 Calcium 8.6 PFSH Medical History Smoker Social History household members: none Smoking Status: Current every day smoker alcohol intake: never Assessment & Plan Post-op Postoperative Procedures: Procedures Operation Date: 01/15/23 16:30 Actual Procedure Side Surgeon p Incision and Drainage great toe Right Herberth Garcia MD Postoperative day: 9 Postoperative status narrative: Patient remains on IV antibiotics. Slight increase in white count compared to yesterday. No fever, chills. Postoperative plan narrative: Patient is optimized for discharge from an orthopedic standpoint. She should remain on IV antibiotics for the remainder of the 2 week course. Continue daily dressing changes, wound care consult. Outpatient vascular consult. May continue to weightbear as tolerated in post operative shoe.
--- NOTE | 2023-01-24 16:51 | CM.DPC ---
DCP Continued: RESORT HOUSEKEEPER reviewed EMR. Per previous notes, plan was to d/c today to [facility] at 1100. RESORT HOUSEKEEPER spoke with provider, who reported patient will likely need two more days. RESORT HOUSEKEEPER lvm with Alexandria at [facility] x3. CM Manager Relationship Hilda pushed [facility] transport to Sunday. RESORT HOUSEKEEPER entered room and introduced self and role. Patient was sitting up and reported not wanting to go to [facility], but wanting to go to [facility]? Patient reports she wants CM team to call her niece in [place], Tasia [phone] with updates on her d/c plan. Plan: patient will d/c to SNF when medically stable. CM team will pursue MV option per patient request in morning. CM team will update [facility]/niece as applicable. CM team will follow closely. AYSHA Mendez
[2023-01-24] MEDS: FUROSEMIDE 40 MG/4 ML VIAL IV (17:08)
[2023-01-24] MEDS: WARFARIN 5 MG TABLET PO (17:08)
[2023-01-24] MEDS: SERTRALINE 50 MG TABLET 100 MG PO (21:14)
[2023-01-24] MEDS: BACLOFEN 10 MG TABLET 40 MG PO (21:14)
[2023-01-25] VITALS (10 sets, daily range): BP systolic 140–159; BP diastolic 63–80; PULSE 62–79; RESP 16–20; TEMP 36.1–36.5; O2SAT 88–94
[2023-01-25] MEDS: OXYCODONE IR 10 MG TABLET PO ×6 (00:10→23:58)
[2023-01-25 05:19] LABS: Prothrombin Time 23.3 SECONDS (10.1-12.7)
[2023-01-25] MEDS: PANTOPRAZOLE DR 20 MG TABLET PO (05:27)
[2023-01-25] MEDS: ALBUTEROL/IPRATROPIUM 3 ML AMPUL INH ×4 (07:26→19:05)
[2023-01-25] MEDS: cefTRIAXone 2,000 MG in SODIUM CHLORIDE 0.9% 100 ML 200 MG IV (08:35)
[2023-01-25] MEDS: dilTIAZem CD 120 MG CAP PO ×2 (08:37→20:58)
[2023-01-25] MEDS: PHENYTOIN ER 100 MG CAPSULE 200 MG PO ×2 (08:37→20:58)
[2023-01-25] MEDS: METOPROLOL IR 50 MG TABLET 200 MG PO ×2 (08:38→20:59)
[2023-01-25] MEDS: predniSONE 20 MG TABLET 40 MG PO (08:38)
[2023-01-25] MEDS: lisinopriL 20 MG TABLET 40 MG PO (08:38)
[2023-01-25] MEDS: SODIUM CHLORIDE 0.9% FLUSH 10 ML IV ×2 (08:39→20:59)
[2023-01-25] MEDS: NYSTATIN CREAM 30 GM 1 APPLIC TOP ×2 (08:39→21:07)
[2023-01-25] MEDS: FUROSEMIDE 40 MG/4 ML VIAL IV (08:47)
[2023-01-25 09:44] LABS: Add Manual Diff / Slide Review NO; Basophils Absolute Auto 100 /uL (0-100); Basophils Percent Auto 0.5 % (0-2); Eosinophils Absolute Auto 0 /uL (0-450); Eosinophils Percent Auto 0.1 % (2-4); Hematocrit 35.3 % (36-46); Hemoglobin 11.9 g/dL (12.0-16.0); Lymphocytes Absolute Auto 2600 /uL (1100-4500); Lymphocytes Percent Auto 17.3 % (25-40); Mean Corpuscular HGB Conc 33.8 % (30-36); Mean Corpuscular Hemoglobin 29.8 PG (26-34); Mean Corpuscular Volume 88.1 fL (80-100); Monocytes Absolute Auto 1000 /uL (0-900); Monocytes Percent Auto 6.6 % (3-14); Neutrophils Absolute Auto 11100 /uL (1500-7000); Neutrophils Percent Auto 75.5 % (50-75); Platelet Count 581 X10^3/uL (150-400); Red Cell Distribution Width 14.4 % (11.6-14.8); White Blood Cell Count 14.8 X10^3/uL (4.5-11.0)
[2023-01-25 09:54] LABS: BUN Creatinine Ratio 43.7 (6-22); Blood Urea Nitrogen 31 mg/dL (7-17); Calcium 9.2 mg/dL (8.4-10.2); Carbon Dioxide 34 mmol/L (22-32); Chloride 94 mmol/L (98-107); Estimated Glomerular Filt Rate > 60 mL/min (>60); Glucose 123 mg/dL (80-110); HEMOLYSIS < 15 (0-50); Potassium 4.1 mmol/L (3.4-5.1); Sodium 135 mmol/L (137-145)
--- NOTE | 2023-01-25 11:00 | PT.IPTN ---
Current Diagnoses Nicotine dependence, unspecified, uncomplicated (01/14/23) Depression, unspecified (01/14/23) Polyneuropathy, unspecified (01/14/23) Essential (primary) hypertension (01/14/23) Other pulmonary embolism without acute cor pulmonale (01/14/23) Gastro-esophageal reflux disease without esophagitis (01/14/23) Cutaneous abscess of right foot (01/14/23) Cellulitis of right lower limb (01/14/23) Non-pressure chronic ulcer of other part of left foot with unspecified severity (01/14/23) Surgery Performed Operation Date: 01/15/23 16:30 Actual Procedures p Incision and Drainage great toe(Right) - Herberth Garcia MD Physical Therapy Treatment Note M2 PT-IP Current Condition Start: 01/16/23 16:22 Freq: NEEDED Status: Active Protocol: Document 01/16/23 14:10 AB (Rec: 01/16/23 16:36 AB [id number]) Physical Therapy Current Condition Current Condition Evaluation Date 01/16/23 Treatment Diagnosis R great toe infection s/p I&D; difficulty in walking Onset Date 01/14/23 M3 PT-IP Subjective Start: 01/16/23 16:22 Freq: NEEDED Status: Active Protocol: Document 01/25/23 11:41 TS (Rec: 01/25/23 11:52 TS [id number]) Subjective Physical Therapy Visit Type Type Treatment Note Visit Start Time 11:00 Visit Stop Time 11:38 Total Visit Minutes 38 Notes Per ortho orders, pt may WBAT BLE in post-op shoes. PT selected forefoot offloading shoes. Number of TUNNEL MUCKER Visits 3 Physical Therapy Visit Comments Patient Comments Pt agreeable to PT. Patient Goals Continue to move M4 PT-IP Mobility and Gait Start: 01/16/23 16:22 Freq: NEEDED Status: Active Protocol: Document 01/25/23 11:41 TS (Rec: 01/25/23 11:52 TS [id number]) PT-Bed Mobility Assessment Supine to Sit Supine to Sit Contact Guard Assistance,1 Person Assistance,Head of Bed Elevated,Bedrails Sit to Supine Sit to Supine Minimal Assistance,1 Person Assistance Scooting Scooting to Edge of Bed Contact Guard Assistance PT-Transfer Assessment Sit to and From Stand Sit to and from Stand Moderate Assistance,1 Person Assistance,Use of Upper Extremities Equipment Transfer Assistive Device Gait Belt,Front Wheeled Walker Orthotic/Prosthetic Devices or Brace: No Comments Mobility Comments Pt found resting on 3L of o2, Spo2 94%. Supine to sit HOB elevated 60D CGA, pt uses heavy UE assist with bed rails for uprighting trunk and scooting to EOB. Pt sat EOB SBA with BUE support for donning of post-op shoes. Sit to stand x1 ModA, provided cues for underneath pt and weight forward. Pt ambulated to window and back to bed ~20' Jerzy, max cueing for walking back on heels due ot post-op shoe. Pt had some SOB, and reported some dizziness, Spo2 92% on 3L. Pt sat back on EOB, BM in brief, nursing was notified for pericare. Sit to supine Jerzy for LEs into bed with UE handrail assist. Pt was left in bed with nursing for bed change and pericare. Gait Assessment Gait Gait Assistance Required: Minimum Assistance,1 Person Assist Distance (Feet) 20 Able to Maintain Weight Bearing Status Yes During Gait Assistive Devices Assistive Device Gait Belt,Front Wheeled Walker Orthotic/Prosthetic Devices or Brace: No Gait Deviations General Gait Pattern Ataxic,Decreased Stride Length ,Decreased Feet Clearance,Step -to Gait Factors Limiting Gait Function Factors Limiting Gait Function Decreased Activity Tolerance, Decreased Strength Comments Gait Comments Pt has a slow step to gait w/ FWW, cued for walking back on heels. See mobility comments. PT-Balance Assessment Sitting Balance and Reactions Static Sitting Balance Ability Good Dynamic Sitting Balance Ability Good Standing Balance and Reactions Static Standing Balance Ability Fair Dynamic Standing Balance Ability Poor Device Used FWW M5 PT-IP Objective Assessments Start: 01/16/23 16:22 Freq: NEEDED Status: Active Protocol: Document 01/16/23 14:10 AB (Rec: 01/16/23 16:36 AB [id number]) Orientation Orientation/Cognition Level of Alertness Alert Orientation Age Safety Awareness Decreased Safety Awareness Gross Range of Motion Lower Extremity ROM Assessment Within Functional Limits Strength Lower Extremity Strength Assessment Within Functional Limits Sensation Assessment Sensation Gross Sensation Right LE Impaired,Left LE Impaired Sensation Description Numbness Comments Sensation Comments has chronic neuropathy on BLE Other Assessments Other Other Assessments pt has L great toe pad wound M6 PT-IP Treatment Start: 01/16/23 16:22 Freq: NEEDED Status: Active Protocol: Document 01/25/23 11:41 TS (Rec: 01/25/23 11:52 TS [id number]) Physical Therapy Treatment Education Education Provided Precautions,Weight Bearing Status,Safety Brace Education [place],Patient Equipment Issued Equipment Type and Company Forefoot offloading shoes BLE from [place] [id number] PT-IP Assessment and Plan Start: 01/16/23 16:22 Freq: NEEDED Status: Active Protocol: Document 01/25/23 11:41 TS (Rec: 01/25/23 11:52 TS [id number]) PT Summary Assessment and Plan Potential Rehabilitation Potential Fair Summary Impairments Pain,Strength,Balance,Bed Mobility,Transfers,Gait, Activity Tolerance Progress Towards Goals Slow Progress due to Medical Issues,Slow Progress due to Activity Tolerance Assessment Summary Pt continues to bed CGA for bed mobility, she requires heavy use of UEs and handrails for sitting up and scooting to EOB. She progressed her gait to ~20'Jerzy with cues for walking back on heels due to forefoot offloading shoe. Pt had SOB and dizziness with gait, Spo2 desat from 94% at rest to 92% after mobility. PT continues to recommend SNF to progress functional mobility and activity tolerance. Goals Bed Mobility Goal Minimal Assistance Transfer Goal Moderate Assistance,Front Wheeled Walker Gait Goal Moderate Assistance,Front Wheel Walker Gait Distance 25 Other Goals improve bed mobility , transfers CGA using FWW, ambulation min A using FWW 30 ft Days to Meet Goals 10 Frequency of Treatment Frequency Of Treatment Once a Day Treatment Plan Physical Therapy Treatment Plan Bed Mobility Training,Transfer Training,Gait Training, Therapeutic Exercise,Balance Retraining,Post Op Education, Hot or Cold Pack,Neuromuscular Re-ed,Manual Therapy Other Recommendations and Next Treatment Work on standing tolerance and Focus transfer to chair as pt is willing. Progress gait. Weight Bearing Status Weight Bearing Status Weight Bear as Tolerated Allowed Weight Bearing Amount (enter % WBAT in forefoot-offloading or #) (%) shoes ONLY Recommendations To Nursing Amount of Assist Needed 2 Person Assist,Mechanical Lift Discharge Recommendations PT Discharge Recommendations SNF Rehab Transportation Needs at Discharge Wheelchair/Cabulance,Stretcher /Ambulance
--- NOTE | 2023-01-25 14:14 | CM.DPC ---
DCP Continued: CLERICAL ASSOCIATE reviewed EMR. Per provider, patient good to d/c as soon as SNF secured. CLERICAL ASSOCIATE spoke with Shreyl at [facility], she will attempt to get an auth. Able to accept tomorrow. CLERICAL ASSOCIATE updated Alexandria that patient no longer wants [facility]. CM Colleter Hilda faxed updated clinical information to [facility] for review. Shania called to inform we got the auth. Keep BLS transport that was previously set up for 1100 tomorrow. CLERICAL ASSOCIATE updated provider/patient. Patient reported verbal understanding she may receive a bill for BLS transport. CM Colleter Hilda emailed Sheryl lab/covid/cultures. CLERICAL ASSOCIATE emailed Sheryl midline assessment. CLERICAL ASSOCIATE called scott to update her on d/c plan (Tasia [phone]). Tasia appreciative. CLERICAL ASSOCIATE answered questions as able. Plan: patient will d/c tomorrow at 1100 via BLS to [facility]. CM team will follow closely. AYSHA Mendez
--- NOTE | 2023-01-25 14:53 | P.PN_ITS ---
Subjective Subjective Date Patient Seen: 01/25/23 Interval history: Pt feeling okay and awaiting SNF discharge tomorrow. Still on 3 L O2, getting diuresed. Denies dyspnea. On rocephin via LUE midline for Stre G bacteremia related to toe abscess. Exam Vital Signs (past 8 hours): - 01/25/23 07:26 01/25/23 08:00 01/25/23 08:37 Temperature 97.1 F L Pulse Rate 77 71 Respiratory Rate 18 18 Blood Pressure 140/63 Pulse Oximetry 94 92 Oxygen Delivery Method Nasal Cannula Nasal Cannula Oxygen Flow Rate 3 3 Fraction of Inspired Oxygen 32 01/25/23 12:09 01/25/23 12:00 Temperature 97.7 F Pulse Rate 65 62 Respiratory Rate 16 18 Blood Pressure 147/69 H Pulse Oximetry 88 L 91 Oxygen Delivery Method Nasal Cannula Oxygen Flow Rate 3 3 Fraction of Inspired Oxygen 32 Fraction of Inspired Oxygen 32 SaO2/FiO2 Ratio 275 Oxygen Delivery Method Nasal Cannula Oxygen Flow Rate 3 Narrative Exam Narrative: Gen: aleert, NAD Lungs: clear CV: irregularly irregular Ext: tr - 1+ indurated LE edema with chronic venous stasis changes; toes wrapped Objective Labs 01/25/23 09:15 01/25/23 09:15 Labs: Laboratory Results - last 24 hr 01/25/23 01/25/23 01/25/23 04:37 09:15 09:15 WBC 14.8 H RBC 4.00 Hgb 11.9 L Hct 35.3 L MCV 88.1 MCH 29.8 MCHC 33.8 RDW 14.4 Plt Count 581 H Neut % (Auto) 75.5 H Lymph % (Auto) 17.3 L Grant % (Auto) 6.6 Eos % (Auto) 0.1 L Baso % (Auto) 0.5 Neut # (Auto) 57151 H Lymph # (Auto) 2600 [place] # (Auto) 1000 H Eos # (Auto) 0 Baso # (Auto) 100 PT 23.3 H INR 2.0 H Sodium 135 L Potassium 4.1 Chloride 94 L Carbon Dioxide 34 H BUN 31 H Creatinine 0.71 Estimated GFR > 60 BUN/Creatinine Ratio 43.7 H Glucose 123 H Calcium 9.2 PFSH Medical History Smoker Social History household members: none Smoking Status: Current every day smoker alcohol intake: never Assessment & Plan Assessment & Plan narrative: 1. New Afib with RVR. Improved and rate controlled. ?- TTE with normal EF, no wall motion abnormalities. ?- with phenytoin interactions, coumadin remains the best anticoagulant for her. Continue dosing per pharmacy. ?- Stopped digoxin. - stopped amiodarone. - continue metoprolol and oral dilt 120 mg BID. -INR 2.0, therapeutic - monitor closely 2. Abscess of great toe, right with RLE cellulitis and Strep bacteremia, present on admission. - Seen by Dr. Garcia and orthopedics team, now s/p I&D, non weight bearing per orders. - CT angio with runoff?without any obvious PAD. - INR supratherapeutic on admission, taken off warfarin initially, now restarted, check inr daily - Meropenem initially for BC positive for G+ cocci, Gram negatives on wound culture. Wound culture with group G strep as well. Narrowed to Ceftriaxone 01/16. Will need 2 weeks of IV ceftriaxone for bacteremia until 01/30 - ortho gave recs for dressing changes - ortho monitoring for possible repeat debridement as outpatient 3. Strep bacteremia, new and active. - ceftriaxone to 01/30. 4. Acute hypoxia, with acute diastolic heart failure and possible pneumonia, new and active. ?- CXR on 01/21 with possible pneumonia ?- treat for pneumonia and possible COPD exacerbation as she has known COPD and significant smoking history ?- ordered for short course of prednisone (x 5d stop 01/26), and scheduled nebs - cont Lasix 40 mg IV daily, switch to po on discharge - may need to be discharged on O2 -? repeat CXR 01/24 with improvement 4. HTN - on Clonidine, metoprolol, Lisinopril - follow and titrate as needed. 5. Remote Pulmonary embolism.: - now on coumadin per pharmacy further discussed above 6. Peripheral neuropathy, POA and stable. ? - continue pain control 7. GERD (gastroesophageal reflux disease), POA and stable. - PPI 8. Depression, POA and stable. - Zoloft 9. Smoker, POA and stable. -nicotine replacement prn, albuterol prn 10. Obesity, POA and stable. -The patient is at much higher risk for medical and surgical complications because of their obesity.? This increases the difficulty and complexity of medical and surgical interventions and increases the chances of poor outcomes such as morbidity and mortality. 11. Possible seizure disorder, POA and stable ?-continue phenytoin dosing BID, level checked and was low at 4.2 [facility] tomorrow 01/26
--- NOTE | 2023-01-25 15:06 | PM.PNPO.1 ---
Subjective Subjective Date Patient Seen: 01/25/23 Time Patient Seen: 15:06 Interval history: Pt sitting up in bed, says she feels terrible, both feet hurt. Exam Vital Signs (past 8 hours): - 01/25/23 07:26 01/25/23 08:00 01/25/23 08:37 Temperature 97.1 F L Pulse Rate 77 71 Respiratory Rate 18 18 Blood Pressure 140/63 Pulse Oximetry 94 92 Oxygen Delivery Method Nasal Cannula Nasal Cannula Oxygen Flow Rate 3 3 Fraction of Inspired Oxygen 32 01/25/23 12:09 01/25/23 12:00 Temperature 97.7 F Pulse Rate 65 62 Respiratory Rate 16 18 Blood Pressure 147/69 H Pulse Oximetry 88 L 91 Oxygen Delivery Method Nasal Cannula Oxygen Flow Rate 3 3 Fraction of Inspired Oxygen 32 Fraction of Inspired Oxygen 32 SaO2/FiO2 Ratio 275 Oxygen Delivery Method Nasal Cannula Oxygen Flow Rate 3 Narrative Exam Narrative: Toes wrapped on both right and left; dressings CDI. No sensation to touch in either foot. WBC up again today. Right marie is erythematous and somewhat swollen, but there appears to be no tracking from the foot to this area that would suggest that the toe continues to be a source of infection. Objective Labs 01/25/23 09:15 01/25/23 09:15 Labs: Laboratory Results - last 24 hr 01/25/23 01/25/23 01/25/23 04:37 09:15 09:15 WBC 14.8 H RBC 4.00 Hgb 11.9 L Hct 35.3 L MCV 88.1 MCH 29.8 MCHC 33.8 RDW 14.4 Plt Count 581 H Neut % (Auto) 75.5 H Lymph % (Auto) 17.3 L [place] % (Auto) 6.6 Eos % (Auto) 0.1 L Baso % (Auto) 0.5 Neut # (Auto) 70345 H Lymph # (Auto) 2600 [place] # (Auto) 1000 H Eos # (Auto) 0 Baso # (Auto) 100 PT 23.3 H INR 2.0 H Sodium 135 L Potassium 4.1 Chloride 94 L Carbon Dioxide 34 H BUN 31 H Creatinine 0.71 Estimated GFR > 60 BUN/Creatinine Ratio 43.7 H Glucose 123 H Calcium 9.2 PFSH Medical History Smoker Social History household members: none Smoking Status: Current every day smoker alcohol intake: never Assessment & Plan Post-op Assessment and plan (1) Abscess of great toe, right: Assessment and Plan narrative: Patient is optimized for discharge from an orthopedic standpoint. Per hospitalist note, it appears the plan is for d/c to SNF tomorrow. She should remain on IV antibiotics for the remainder of the 2 week course. Continue daily wet-to-dry dressing changes of right great toe, wound care consult. Outpatient vascular consult. May continue to weightbear as tolerated in postoperative shoe. Postoperative Procedures: Procedures Operation Date: 01/15/23 16:30 Actual Procedure Side Surgeon p Incision and Drainage great toe Right Herberth Garcia MD Postoperative day: 10
[2023-01-25] MEDS: WARFARIN 5 MG TABLET 2.5 MG PO (16:46)
[2023-01-25] MEDS: BACLOFEN 10 MG TABLET 40 MG PO (21:06)
[2023-01-25] MEDS: SERTRALINE 50 MG TABLET 100 MG PO (21:07)
[2023-01-26] VITALS: BP 154/81; PULSE 65; RESP 18; TEMP 35.9; O2SAT 92
--- NOTE | 2023-01-26 03:27 | PC.RNWOUND ---
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
[2023-01-26 03:47] VITALS: BP 128/71; PULSE 67; RESP 20; TEMP 35.9; O2SAT 94
[2023-01-26] MEDS: OXYCODONE IR 10 MG TABLET PO ×3 (03:59→11:31)
[2023-01-26 06:04] LABS: Add Manual Diff / Slide Review NO; Basophils Absolute Auto 100 /uL (0-100); Basophils Percent Auto 0.5 % (0-2); Eosinophils Absolute Auto 0 /uL (0-450); Hematocrit 34.1 % (36-46); Hemoglobin 11.3 g/dL (12.0-16.0); Lymphocytes Absolute Auto 3000 /uL (1100-4500); Mean Corpuscular HGB Conc 33.3 % (30-36); Mean Corpuscular Hemoglobin 29.3 PG (26-34); Mean Corpuscular Volume 87.9 fL (80-100); Monocytes Absolute Auto 1000 /uL (0-900); Monocytes Percent Auto 6.6 % (3-14); Neutrophils Absolute Auto 11100 /uL (1500-7000); Neutrophils Percent Auto 72.9 % (50-75); Platelet Count 614 X10^3/uL (150-400); Red Blood Cell Count 3.87 X10^6/uL (4.0-5.2); Red Cell Distribution Width 14.5 % (11.6-14.8); White Blood Cell Count 15.2 X10^3/uL (4.5-11.0)
[2023-01-26 06:08] LABS: Prothrombin Time 23.1 SECONDS (10.1-12.7)
[2023-01-26] MEDS: PANTOPRAZOLE DR 20 MG TABLET PO (06:10)
[2023-01-26 06:11] LABS: BUN Creatinine Ratio 54.2 (6-22); Blood Urea Nitrogen 39 mg/dL (7-17); Calcium 9.1 mg/dL (8.4-10.2); Carbon Dioxide 33 mmol/L (22-32); Chloride 95 mmol/L (98-107); Estimated Glomerular Filt Rate > 60 mL/min (>60); Glucose 105 mg/dL (80-110); HEMOLYSIS < 15 (0-50); Potassium 4.3 mmol/L (3.4-5.1); Sodium 134 mmol/L (137-145)
--- NOTE | 2023-01-26 07:48 | P.DS_ITS ---
History of Present Illness History of Present Illness Chief complaint: Infected toe Narrative: 72 y/o with a history of peripheral neuropathy, presented to ED with purulent Rt great toe wound and large area of cellulitis extending to the knee. Wound was noted a week ago. On arrival to ED started on broad abx coverage. Discharge Providers Provider Date of admission: 01/14/23 03:50 Discharge Date: 01/26/23 Primary care physician: Angela Lozada PA-C Consults: 01/15/23 17:06 Consult to Discharge Planning Routine Comment: Consult to Physical Therapy Evaluate & Treat Comment: Physician Instructions: Evaluate and Treat 01/15/23 17:09 Consult to Inpatient Wound Care Nurse Routine Comment: Reason for consultation: Right toe abscess Has provider been notified: Yes 01/21/23 12:09 Consult to Physician Routine Comment: Consulting Provider: Herberth Garcia Reason for consultation: right foot infection Has provider been notified: Yes 01/21/23 12:32 Consult to Physical Therapy Evaluate & Treat Comment: Bilateral postop shoes, bilateral WBAT Physician Instructions: Evaluate and Treat Discharge provider: Matthew Huerta, Summary Hospital Course Discharge Diagnosis: 1. New Afib with RVR. Improved and rate controlled. ?- TTE with normal EF, no wall motion abnormalities. ?- with phenytoin interactions, coumadin remains the best anticoagulant for her. Continue dosing per pharmacy. ?- Stopped digoxin. - stopped amiodarone. - continue metoprolol and oral dilt 120 mg BID. -INR 2.0, therapeutic - monitor closely 2. Abscess of great toe, right with RLE cellulitis and Strep bacteremia, present on admission. - Seen by Dr. Garcia and orthopedics team, now s/p I&D, non weight bearing per orders. - CT angio with runoff?without any obvious PAD. - INR supratherapeutic on admission, taken off warfarin initially, now restarted, check inr daily - Meropenem initially for BC positive for G+ cocci, Gram negatives on wound culture. Wound culture with group G strep as well. Narrowed to Ceftriaxone 01/16. Will need 2 weeks of IV ceftriaxone for bacteremia until 01/30 - ortho gave recs for dressing changes - ortho monitoring for possible repeat debridement as outpatient 3. Strep bacteremia, new and active. - ceftriaxone 2g daily until 01/30. 4. Acute hypoxia, with acute diastolic heart failure and possible pneumonia, new and active. ?- CXR on 01/21 with possible pneumonia ?- treat for pneumonia and possible COPD exacerbation as she has known COPD and significant smoking history ?- ordered for short course of prednisone (x 5d stop 01/26), and scheduled nebs ?- cont Lasix 40 mg IV daily, switch to po on discharge ?- may need to be discharged on O2 -? repeat CXR 01/24 with improvement 4. HTN - on Clonidine, metoprolol, Lisinopril - follow and titrate as needed. 5. Remote Pulmonary embolism.: - now on coumadin per pharmacy further discussed above 6. Peripheral neuropathy, POA and stable. ? - continue pain control 7. GERD (gastroesophageal reflux disease), POA and stable. - PPI 8. Depression, POA and stable. - Zoloft 9. Smoker, POA and stable. -nicotine replacement prn, albuterol prn 10. Obesity, POA and stable. -The patient is at much higher risk for medical and surgical complications because of their obesity.? This increases the difficulty and complexity of medical and surgical interventions and increases the chances of poor outcomes such as morbidity and mortality. 11. Possible seizure disorder, POA and stable ?-continue phenytoin dosing BID, level checked and was low at 4.2 Hospital Course: See above problem list. Time Spent with Patient Time spent: Greater than 30 minutes Exam Vital Signs (past 8 hours): - 01/26/23 00:00 01/26/23 03:47 Temperature 96.7 F L 96.7 F L Pulse Rate 65 67 Respiratory Rate 18 20 Blood Pressure 154/81 H 128/71 Pulse Oximetry 92 94 Oxygen Flow Rate 4 4 Fraction of Inspired Oxygen 36 SaO2/FiO2 Ratio 261 Oxygen Delivery Method Nasal Cannula Oxygen Flow Rate 4 Narrative Exam Narrative: Gen: alert, NAD Lungs: clear CV: irregularly irregular Ext: tr - 1+ indurated LE edema with chronic venous stasis changes; toes wrapped Objective Labs 01/26/23 05:10 01/26/23 05:10 Labs: Laboratory Results - last 24 hr 01/25/23 01/25/23 01/26/23 09:15 09:15 05:10 WBC 14.8 H RBC 4.00 Hgb 11.9 L Hct 35.3 L MCV 88.1 MCH 29.8 MCHC 33.8 RDW 14.4 Plt Count 581 H Neut % (Auto) 75.5 H Lymph % (Auto) 17.3 L [place] % (Auto) 6.6 Eos % (Auto) 0.1 L Baso % (Auto) 0.5 Neut # (Auto) 72656 H Lymph # (Auto) 2600 [place] # (Auto) 1000 H Eos # (Auto) 0 Baso # (Auto) 100 PT 23.1 H INR 2.0 H Sodium 135 L Potassium 4.1 Chloride 94 L Carbon Dioxide 34 H BUN 31 H Creatinine 0.71 Estimated GFR > 60 BUN/Creatinine Ratio 43.7 H Glucose 123 H Calcium 9.2 01/26/23 01/26/23 05:10 05:10 WBC 15.2 H RBC 3.87 L Hgb 11.3 L Hct 34.1 L MCV 87.9 MCH 29.3 MCHC 33.3 RDW 14.5 Plt Count 614 H Neut % (Auto) 72.9 Lymph % (Auto) 20.0 L [place] % (Auto) 6.6 Eos % (Auto) 0.0 L Baso % (Auto) 0.5 Neut # (Auto) 60830 H Lymph # (Auto) 3000 [place] # (Auto) 1000 H Eos # (Auto) 0 Baso # (Auto) 100 PT INR Sodium 134 L Potassium 4.3 Chloride 95 L Carbon Dioxide 33 H BUN 39 H Creatinine 0.72 Estimated GFR > 60 BUN/Creatinine Ratio 54.2 H Glucose 105 Calcium 9.1 PFSH Medical History Smoker Social History household members: none Smoking Status: Current every day smoker alcohol intake: never Discharge Plan Discharge Plan Patient Disposition: SNF Transfer to: [facility] Discharge orders & Medications Prescriptions: New ceftriaxone 2 gram Recon Soln See Rx Instructions .ROUTE .COMPLEX Qty: 10 0RF Rx Instructions: 2g q24h until 01/30 nicotine 14 mg/24 hr Patch 24 Hour 14 mg topical DAILY PRN (Reason: smoking - craving) Qty: 14 0RF diltiazem HCl 120 mg Capsule,Extended Release 24hr 120 mg PO BID 30 Days Qty: 60 0RF oxycodone 10 mg Tablet 10 mg PO Q3HR PRN (Reason: Pain, Moderate (4-6)) 30 Days Qty: 30 0RF furosemide [Lasix] 40 mg tablet 40 mg PO DAILY Qty: 30 0RF metoprolol succinate 200 mg tablet extended release 24 hr 200 mg PO BID Qty: 60 0RF Continued LISINOPRIL (Zestril / Prinivil) 40 mg 40 mg PO Q DAY Qty: 0 BACLOFEN (Lioresal) 40 mg PO BEDTIME Qty: 0 OMEPRAZOLE 20 mg PO Q DAY Qty: 0 warfarin [Coumadin] 5 MG tablet 5.5 mg PO QDAY Qty: 0 metoprolol tartrate 50 MG tablet 100 mg PO BID Qty: 0 [PHENYTOIN EX] 100 mg 2 cap PO BID Qty: 0 sertraline 100 mg tablet 100 mg PO BEDTIME clonidine HCl 0.2 mg tablet 0.2 mg PO BID warfarin 1 mg tablet 1 mg PO DAILY Follow up/Referrals: Herberth Garcia MD [Physician] - 1 Week Diet/Activity/Treatments Diet: Regular Activity: Weightbearing as tolerated in postoperative shoe Skin/Wound/Dressing Care Report to your healthcare provider any signs of infection, such as:: chills, fever, night sweats, unusual drainage and unusual redness Dressing: Daily dressing changes Other wound treatment: Daily wet to dry dressing changes [facility] Reason for rehabilitation: Post-operative therapy Rehab type: Physical therapy and Occupational therapy Restrictions to mobility: Partial weight-bearing of right foot. Visit Report/Discharge Packet Instructions: DI for Cellulitis -- Adult, DI for Incision and Drainage of a Joint, [facility]: Wound Care Stand Alone Forms: Patient Portal/API Discharge Data Primary Care Provider: Angela Lozada
[2023-01-26 08:03] VITALS: BP 128/65; PULSE 70; RESP 17; TEMP 36.6; O2SAT 95
[2023-01-26] MEDS: NYSTATIN CREAM 30 GM 1 APPLIC TOP (08:33)
[2023-01-26] MEDS: ACETAMINOPHEN 325 MG TABLET 650 MG PO (08:34)
--- NOTE | 2023-01-26 08:34 | CM.DPC ---
DCP Discharge SNF Per MD, pt is medically stable to d/c to SNF today and no identified barriers to discharge. SIMON confirmed with GYM MANAGER that pt could tolerate sitting in w/c to [facility]. SIMON called Sheryl at [facility] and she will review the d/c packet CC Hilda just emailed her to confirm they have the information they need and [facility] was able to schedule bariatric cabulance and oxygen for 1000 today. SIMON met bedside with pt and updated on above and she remains agreeable to [facility] today via cabulance. SIMON updated RN, SCANNING COORDINATOR, patent chemist. Plan: Patient to d/c to [facility] today via bariatric w/c cabulance at 1000 before safe return home. Mary Ramey MSW
[2023-01-26 08:35] VITALS: BP 128/65; PULSE 72
[2023-01-26] MEDS: PHENYTOIN ER 100 MG CAPSULE 200 MG PO (08:35)
[2023-01-26] MEDS: predniSONE 20 MG TABLET 40 MG PO (08:35)
[2023-01-26] MEDS: lisinopriL 20 MG TABLET 40 MG PO (08:35)
[2023-01-26] MEDS: FUROSEMIDE 40 MG/4 ML VIAL IV (08:35)
[2023-01-26] MEDS: METOPROLOL IR 50 MG TABLET 200 MG PO (08:36)
[2023-01-26] MEDS: dilTIAZem CD 120 MG CAP PO (08:36)
[2023-01-26] MEDS: SODIUM CHLORIDE 0.9% FLUSH 10 ML IV ×2 (08:37→10:54)
[2023-01-26] MEDS: cefTRIAXone 2,000 MG in SODIUM CHLORIDE 0.9% 100 ML 200 MG IV (08:47)
[2023-01-26 08:48] LABS: Magnesium 1.6 mg/dL (1.6-2.3)
--- NOTE | 2023-01-26 09:39 | PC.NURSE ---
Dr. Huerta notified that the pt had a 6 beat run of VTach at 0826. Provider notified of the VTach episode by this RN at 0829.
[2023-01-26] MEDS: ALBUTEROL/IPRATROPIUM 3 ML AMPUL INH ×2 (09:44→09:45)
[2023-01-26 09:51] VITALS: PULSE 58; RESP 16; O2SAT 94
[2023-01-26] MEDS: MAGNESIUM SULFATE 2 GM/50 ML PIGGYBACK IV (09:54)
[2023-01-26] MEDS: HYDROMORPHONE 0.5 MG INJ IV (10:54)
--- NOTE | 2023-01-26 12:36 | PC.NURSE ---
Pt discharged today to [facility] [place] via cabulance while sitting up in . Discharge packet sent with transport team. Called and gave report to nurse Atif at [facility] at 1145AM this morning. Left message for nurse Atif about warfarin discharge instruction clarification, pt is suppose to take 5.5 mg daily per discharge orders. All questions answered for the intake nurse. Pt left with her clothing, glasses, cell phone, cell phone charge, post op shoes, stuffed cat toy, and purse. Room was double checked for all belongings. Pt A&Ox4 upon discharge. Pt was able to stand and pivot from hospital bed into W/C with gait belt, FWW and 2 person assist. Pt able to make all needs known. Pt was discharged with a midline in her L upper arm for IV abx to be continued while at rehab. All questions answered that the pt had.
== END 2023-01-26 12:25 | DRG 981 ==
LOC: ED 02:11 → AC 03:51 → ICU 01-15 17:42 → AC 01-22 18:26
PROVIDERS: Family Medicine; Internal Medicine; Orthopaedic Surgery; Student in an Organized Health Care Education/Training Program; Admitting Provider Internal Medicine; Emergency Provider Emergency Medicine; PCP Physician Assistant; Referring Provider Emergency Medicine; Visit Provider Internal Medicine
PROC: 0LBV0ZZ Excision of Right Foot Tendon, Open Approach (ICD-10-PCS; principal; 2023-01-15 16:30)
DX: L02.611 Cutaneous abscess of right foot (principal); I50.31 Acute diastolic (congestive) heart failure; J96.01 Acute respiratory failure with hypoxia; J18.9 Pneumonia, unspecified organism; I96 Gangrene, not elsewhere classified; L03.115 Cellulitis of right lower limb; J44.1 Chronic obstructive pulmonary disease with (acute) exacerbation; K21.9 Gastro-esophageal reflux disease without esophagitis; F32.A Depression, unspecified; F17.210 Nicotine dependence, cigarettes, uncomplicated; B95.4 Other streptococcus as the cause of diseases classified elsewhere; I48.91 Unspecified atrial fibrillation; B96.4 Proteus (mirabilis) (morganii) as the cause of diseases classified elsewhere; E66.9 Obesity, unspecified; I11.0 Hypertensive heart disease with heart failure; R79.1 Abnormal coagulation profile; G62.9 Polyneuropathy, unspecified; G40.909 Epilepsy, unspecified, not intractable, without status epilepticus; Z86.711 Personal history of pulmonary embolism; Z79.01 Long term (current) use of anticoagulants; Z68.39 Body mass index [BMI] 39.0-39.9, adult
CPT/HCPCS: 36415; 71045; 73620; 75635; 80048; 80053; 80185; 81003; 81015; 83605; 83690; 83735; 84132; 84145; 85007; 85025; 85027; 85610; 85651; 85730; 86140; 87040; 87070; 87075; 87077; 87086; 87147; 87154; 87186; 87205; 87633; 87797; 93005; 93010; 93971; 94640; 94760; 94762; 96365; 96367; 97110; 97116; 97163; 97530; 97535; 99285; C8929; J0171; J0282; J0696; J1160; J1170; J1642; J1940; J2185; J2704; J3430; J3475; J7613; Q9957; Q9967